=== PATIENT | female | born 1990 | race African-American/Black ===

== ENCOUNTER 2016-05-31 03:45 | Emergency (ER) | payer MEDICAID ==
[2016-05-31] MEDS ORDERED: BUPIVACAINE HCL 0.75% INJ/PF (7.5 MG/1 ML) 10 ML SDV INJ ONE (04:24)
[2016-05-31] MEDS ORDERED: PENICILLIN V POTASSIUM 500 MG TABLET PO ONE (04:24)
--- NOTE | 2016-05-31 04:26 | ER Document Report ---
HPI - HPI Patient complains to provider of: dental pain Pain Level: 3 Context: Patient is a 25-year-old female that comes emergency department for chief complaint of sharp dental pain, she states pain is in her lower jaw on the left side, states it is worsening for about 4 days but tonight became severe and she cannot sleep. Patient states that she has known fracture after she had an impacted wisdom tooth in that area. She states that she has been to the [facility] for work on the other side but not for this side. Patient denies any medical history otherwise, denies any daily medications or medical problems. - REPRODUCTIVE Reproductive: DENIES: : - DERM Skin Color: Normal Past Medical History - General Information source: Patient - Social History Smoking Status: Current Every Day Smoker Chew tobacco use (# tins/day): No Frequency of alcohol use: Occasional Drug Abuse: None Lives with: Family Family History: Reviewed & Not Pertinent Patient has suicidal ideation: No Patient has homicidal ideation: No - Past Medical History Cardiac Medical History: Reports: Hx Hypertension Denies: Hx Congestive Heart Failure, Hx Heart Attack Pulmonary Medical History: Denies: Hx Asthma, Hx Bronchitis, Hx COPD, Hx Pneumonia, Hx Tuberculosis Neurological Medical History: Denies: Hx Seizures Renal/ Medical History: Denies: Hx End Stage Renal Disease, Hx Kidney Stones, Hx Peritoneal Dialysis GI Medical History: Denies: Hx Cirrhosis, Hx Gastroesophageal Reflux Disease, Hx Ulcer Musculoskeltal Medical History: Denies Hx Arthritis, Denies Hx Multiple Sclerosis Psychiatric Medical History: Reports: Hx Anxiety, Hx Schizophrenia Denies: Hx Bipolar Disorder, Hx Depression Surgical Hx: Negative - Immunizations Immunizations up to date: No Hx Diphtheria, Pertussis, Tetanus Vaccination: Yes - 06/24/11 Vertical Provider Document - CONSTITUTIONAL General Appearance: WD/WN, Mild Distress - patient appears to be uncomfortable, holding the left side of her face - INFECTION CONTROL TRAVEL OUTSIDE OF THE [place].S. IN LAST 30 DAYS: No - HEENT HEENT: Atraumatic, Normocephalic Mouth Diagram: 1 - Dental caries, erythematous gumline, no noted drainable abscess, no other abnormalities noted - NECK Neck: Normal Inspection - RESPIRATORY Respiratory: Breath Sounds Normal, No Respiratory Distress O2 Sat by Pulse Oximetry: 95 - CARDIOVASCULAR Cardiovascular: Regular Rate, Regular Rhythm, Tachycardia - GI/ABDOMEN Gastrointestinal: Abdomen Soft, Abdomen Non-Tender - BACK Back: Normal Inspection - MUSCULOSKELETAL/EXTREMETIES Musculoskeletal/Extremeties: MAEW, FROM, Non-Tender - NEURO Level of Consciousness: Awake, Alert, Appropriate Motor/Sensory: No Motor Deficit, No Sensory Deficit - DERM Integumentary: Warm, Dry, No Rash Course - Re-evaluation Re-evalutation: Patient with dental caries in the location point out, erythematous gumline, obvious discomfort, discussed potential dental block and patient gladly accepted. After bupivacaine dental block patient smiling, happy, asymptomatic, very thankful. Patient given antibiotics, pain medication, dental clinic referral, patient has had 2 teeth which appear to have been taking care of already, states she will get this one taking care of as well. Discussed return precautions. Patient states understanding and agreement. - Vital Signs Vital signs: Temp Pulse Resp BP Pulse Ox 97.8 F 122 H 16 108/79 95 05/31/16 03:48 05/31/16 03:48 05/31/16 03:48 05/31/16 03:48 05/31/16 03:48 Procedures - Additional Procedures inferior alveolar dental block Additional Procedures: Other - Left inferior alveolar dental block performed with 0.75 bupivacaine, 25-gauge needle used, aspirated gently before injecting 3 mL at the shelf. About 1 minute before effective therapy achieved. Discharge - Discharge Clinical Impression: Tooth infection, Pain, dental Condition: Stable Disposition: HOME, SELF-CARE Additional Instructions: Examination is consistent with a dental infection, please take antibiotics as directed, take the pain medication if needed, follow-up with the dentist for repair/extraction to prevent recurrence. Return to the emergency department for any concerning or worsening symptoms. Prescriptions: Oxycodone HCl/Acetaminophen [Percocet 5-325 mg Tablet] 1 - 2 tab PO Q4H PRN #10 tablet PRN Reason: Penicillin V Potassium [Penicillin Vk 500 mg Tablet] 500 mg PO BID #20 tablet
[2016-05-31 18:31] VITALS: BP 106/76
== END 2016-05-31 05:00 | disposition home or self-care (01) ==
LOC: ER 03:45
PROC: 3E0T3BZ Introduction of Anesthetic Agent into Peripheral Nerves and Plexi, Percutaneous Approach (ICD-10-PCS; principal; 2016-05-31)
DX: K02.9 Dental caries, unspecified (principal); K08.89 Other specified disorders of teeth and supporting structures; F17.200 Nicotine dependence, unspecified, uncomplicated; I10 Essential (primary) hypertension
CPT/HCPCS: 99282; 64400; J3490 ×2

== ENCOUNTER 2016-07-09 17:30 | Emergency (ER) | payer MEDICAID ==
--- NOTE | 2016-07-09 18:12 | ER Document Report ---
ED Medical Screen (RME) - General Chief Complaint: Toothache Stated Complaint: TOOTH PAIN Notes: 25-year-old female comes emergency room complaining of pain to lower molars on both sides. The dental problems are a chronic problem. She has been seen here multiple times for toothaches. She states the pain started again last night and this morning woke up with swelling and severe pain. Strong EtOH odor. I have greeted and performed a rapid initial assessment of this patient. A comprehensive ED assessment and evaluation of the patient, analysis of test results and completion of the medical decision making process will be conducted by additional ED providers. TRAVEL OUTSIDE OF THE U.S. IN LAST 30 DAYS: No - Related Data Allergies/Adverse Reactions: acetaminophen [From Vicodin] Adverse Reaction (Intermediate, Verified 07/09/16 17:51) Hives hydrocodone bitartrate [From Vicodin] Adverse Reaction (Intermediate, Verified 07/09/16 17:51) Hives Past Medical History - Past Medical History Cardiac Medical History: Reports: Hx Hypertension Denies: Hx Congestive Heart Failure, Hx Heart Attack Pulmonary Medical History: Denies: Hx Asthma, Hx Bronchitis, Hx COPD, Hx Pneumonia, Hx Tuberculosis Neurological Medical History: Denies: Hx Seizures Renal/ Medical History: Denies: Hx End Stage Renal Disease, Hx Kidney Stones, Hx Peritoneal Dialysis GI Medical History: Denies: Hx Cirrhosis, Hx Gastroesophageal Reflux Disease, Hx Ulcer Musculoskeltal Medical History: Denies Hx Arthritis, Denies Hx Multiple Sclerosis Psychiatric Medical History: Reports: Hx Anxiety, Hx Schizophrenia Denies: Hx Bipolar Disorder, Hx Depression - Immunizations Immunizations up to date: No Hx Diphtheria, Pertussis, Tetanus Vaccination: Yes - 06/24/11 Physical Exam - Vital signs Vitals: Temp Pulse Resp BP Pulse Ox 99.5 F 116 H 18 133/82 H 99 07/09/16 17:48 07/09/16 17:48 07/09/16 17:48 07/09/16 17:48 07/09/16 17:48 Course - Vital Signs Vital signs: Temp Pulse Resp BP Pulse Ox 99.5 F 116 H 18 133/82 H 99 07/09/16 17:48 07/09/16 17:48 07/09/16 17:48 07/09/16 17:48 07/09/16 17:48
[2016-07-09] MEDS ORDERED: ONDANSETRON 4 MG TAB.RAPDIS PO ONE (18:14)
[2016-07-09] MEDS ORDERED: OXYCODONE-ACETAMINOPHEN 5-325 MG TABLET PO ONE (18:14)
[2016-07-09 18:43] LABS: ABSOLUTE LYMPHOCYTES (AUTO) 1.5 10^3/uL (0.5-4.7); ABSOLUTE MONOCYTES (AUTO) 1.2 10^3/uL (0.1-1.4); ABSOLUTE NEUT (AUTO) 9.9 10^3/uL (1.7-8.2); BASOPHILS % (AUTO) 0.3 % (0-2); EOSINOPHILS % (AUTO) 0.1 % (0-6); HEMATOCRIT 39.8 % (36.0-47.0); HEMOGLOBIN 12.8 g/dL (12.0-15.5); HGB HCT DIFFERENCE -1.4; LYMPHOCYTES % (AUTO) 12.2 % (13-45); MEAN CORPUSCULAR HEMOGLOBIN 24.9 pg (27.0-33.4); MEAN CORPUSCULAR HGB CONC 32.1 g/dL (32.0-36.0); MEAN CORPUSCULAR VOLUME 78 fl (80-97); MONOCYTES % (AUTO) 9.7 % (3-13); RED BLOOD COUNT 5.13 10^6/uL (3.72-5.28); RED CELL DISTRIBUTION WIDTH 18.7 % (11.5-14.0); SEGMENTED NEUTROPHILS % (AUTO) 77.7 % (42-78); WHITE BLOOD COUNT 12.7 10^3/uL (4.0-10.5)
[2016-07-09 19:00] LABS: ALANINE AMINOTRANSFERASE 29 U/L (9-52); ALBUMIN 4.4 g/dL (3.5-5.0); ALCOHOL 156 mg/dL (NONE DETECTED); ALKALINE PHOSPHATASE 88 U/L (38-126); ANION GAP 16 (5-19); ASPARTATE AMINO TRANSFERASE 23 U/L (14-36); BILIRUBIN,DIRECT 0.1 mg/dL (0.0-0.4); BILIRUBIN,TOTAL 0.6 mg/dL (0.2-1.3); BLOOD UREA NITROGEN 7 mg/dL (7-20); CALCIUM 9.4 mg/dL (8.4-10.2); CARBON DIOXIDE 26 mmol/L (22-30); CHLORIDE 102 mmol/L (98-107); GLUCOSE 76 mg/dL (75-110); SODIUM 143.5 mmol/L (137-145); TOTAL PROTEIN 7.8 g/dL (6.3-8.2)
[2016-07-09] MEDS ORDERED: CLINDAMYCIN 600 MG/D5W RTU 50 ML IV ONE (20:40)
[2016-07-09] MEDS ORDERED: MORPHINE SULFATE 10 MG/ML INJ IV ONE (22:25)
--- NOTE | 2016-07-09 22:29 | ER Document Report ---
ED Oral Problem - General Chief Complaint: Toothache Stated Complaint: TOOTH PAIN Notes: The patient is a 25-year-old female, past medical history frequent toothaches, bipolar, presents with 3 days of swelling of her bottom teeth and neck. She is scheduled to have multiple teeth removed in 2 weeks. She is requesting pain medicine and antibiotics. She denies difficulty swallowing, trismus, nausea, vomiting, headache, fevers, tongue swelling, shortness of breath or stridor. TRAVEL OUTSIDE OF THE [place]. IN LAST 30 DAYS: No - Related Data Allergies/Adverse Reactions: acetaminophen [From Vicodin] Adverse Reaction (Intermediate, Verified 07/09/16 17:51) Hives hydrocodone bitartrate [From Vicodin] Adverse Reaction (Intermediate, Verified 07/09/16 17:51) Hives Past Medical History - General Information source: Patient - Social History Smoking Status: Current Every Day Smoker Chew tobacco use (# tins/day): No Frequency of alcohol use: Social Drug Abuse: None Family History: Reviewed & Not Pertinent Patient has suicidal ideation: No Patient has homicidal ideation: No - Past Medical History Cardiac Medical History: Reports: Hx Hypertension Denies: Hx Congestive Heart Failure, Hx Heart Attack Pulmonary Medical History: Denies: Hx Asthma, Hx Bronchitis, Hx COPD, Hx Pneumonia, Hx Tuberculosis Neurological Medical History: Denies: Hx Seizures Renal/ Medical History: Denies: Hx End Stage Renal Disease, Hx Kidney Stones, Hx Peritoneal Dialysis GI Medical History: Denies: Hx Cirrhosis, Hx Gastroesophageal Reflux Disease, Hx Ulcer Musculoskeltal Medical History: Denies Hx Arthritis, Denies Hx Multiple Sclerosis Psychiatric Medical History: Reports: Hx Anxiety, Hx Schizophrenia Denies: Hx Bipolar Disorder, Hx Depression Surgical Hx: Negative - Immunizations Immunizations up to date: No Hx Diphtheria, Pertussis, Tetanus Vaccination: Yes - 06/24/11 Review of Systems - Review of Systems Notes: REVIEW OF SYSTEMS: CONSTITUTIONAL: -fevers, -chills EENT: -eye pain, -difficulty swallowing, -nasal congestion, +neck swelling, + dental pain CARDIOVASCULAR:-chest pain, -syncope. RESPIRATORY: -cough, -SOB GASTROINTESTINAL: -abdominal pain, - nausea, -vomiting, -diarrhea GENITOURINARY: -dysuria, -hematuria MUSCULOSKELETAL: -back pain, -neck pain SKIN: -rash or skin lesions. HEMATOLOGIC: -easy bruising or bleeding. LYMPHATIC: -swollen, enlarged glands. NEUROLOGICAL: -altered mental status or loss of consciousness, -headache, - neurologic symptoms PSYCHIATRIC: -anxiety, -depression. ALL OTHER SYSTEMS REVIEWED AND NEGATIVE. Physical Exam - Vital signs Vitals: Temp Pulse Resp BP Pulse Ox 99.5 F 116 H 18 133/82 H 99 07/09/16 17:48 07/09/16 17:48 07/09/16 17:48 07/09/16 17:48 07/09/16 17:48 - Notes Notes: PHYSICAL EXAMINATION: GENERAL: Agitated, smells of EtOH, no respiratory distress HEAD: Atraumatic, normocephalic. EYES: Pupils equal round and reactive to light, extraocular movements intact, sclera anicteric, conjunctiva are normal. ENT: Brawny neck, no tongue elevation, poor dentition, no trismus, nares patent , oropharynx clear without exudates. Moist mucous membranes. NECK: Normal range of motion, supple without lymphadenopathy LUNGS: Breath sounds clear to auscultation bilaterally and equal. No wheezes rales or rhonchi. HEART: Regular rate and rhythm without murmurs ABDOMEN: Soft, nontender, normoactive bowel sounds. No guarding, no rebound. No masses appreciated. EXTREMITIES: Normal range of motion, no pitting or edema. No cyanosis. NEUROLOGICAL: Cranial nerves grossly intact. Normal speech, normal gait. Normal sensory, motor, and reflex exams. PSYCH: Agitated SKIN: Warm, Dry, normal turgor, no rashes or lesions noted. Course - Re-evaluation Re-evalutation: Concern for Rafael angina with brawny neck and dental pain. Patient also intoxicated and initially refusing IV. After talking to her multiple times, patient sent to the IV for CT, antibiotics and pain medicine. She is protecting her airway and has no difficulty swallowing. 07/09/16 23:08 Pt does not have evidence of Rafael's angina on CT scan. She does have a dental abscess. Will treat with clindamycin and follow-up at dentist. She has an appointment on July 24, but provided other dentists in the area for her to try calling tomorrow to see if there is an earlier appointment. Patient comfortable with plan and she understands. - Vital Signs Vital signs: Temp Pulse Resp BP Pulse Ox 99.5 F 116 H 18 133/82 H 99 07/09/16 17:48 07/09/16 17:48 07/09/16 17:48 07/09/16 17:48 07/09/16 17:48 - Laboratory Result Diagrams: 07/09/16 18:27 07/09/16 18:27 Laboratory results interpreted by me: 07/09/16 18:27 WBC 12.7 H MCV 78 L MCH 24.9 L RDW 18.7 H Lymphocytes % 12.2 L Absolute Neutrophils 9.9 H - Diagnostic Test Radiology reviewed: Image reviewed, Reports reviewed Radiology results interpreted by me: CT Face: IMPRESSION: 1.5 x 1.5 by 1.0 cm abscess in the medial soft tissues of the right mandible adjacent to the 2nd posterior molar which shows osseous abscess at the posterior root with some cortical breakthrough of the medial table of the mandible into the soft tissues. Discharge - Discharge Clinical Impression: Dental abscess Condition: Stable Disposition: HOME, SELF-CARE Additional Instructions: TOOTHACHE: Your pain is due to dental decay. The tooth must be repaired in order for you to feel better. You will, therefore, be referred to a dentist. We do not have dentists on the staff at [facility]. Severe swelling or drainage around a tooth usually means a dental abscess. This also requires evaluation and treatment by the dentist, but antibiotics may be prescribed while awaiting dental treatment. You should be rechecked immediately if you develop major swelling of the face, increasing pain, a lump in the jaw or gums, headache, difficulty swallowing, or fever. ORAL NARCOTIC MEDICATION: You have been given a prescription for pain control. This medication is a narcotic. It's best taken with food, as nausea can result if taken on an empty stomach. Don't operate machinery or drive within six hours of taking this medication. Do not combine this medicine with alcohol, or with any medication which can cause sedation (such as cold tablets or sleeping pills) unless you get permission from the physician. Narcotics tend to cause constipation. If possible, drink plenty of fluids and eat a diet high in fiber and fruits. Please be aware that prescription narcotics also have the potential for abuse. People become addicted to these medications because of the general sense of wellbeing that they induce. This feeling along with a significant reduction in tension, anxiety, and aggression provides a stimulating seductive quality to these drugs. Once your pain is under control, we encourage you to discard your unused narcotics. CLINDAMYCIN: You have been given a prescription for the antibiotic clindamycin. It is often prescribed for infections in the mouth, such as dental infections or abscesses, and for skin infections due to MRSA. It's important that you take all the medication, unless instructed otherwise by your physician. Failure to complete the entire course can result in relapse of your condition. Common side effects of antibiotics include nausea, intestinal cramping, or diarrhea. Women may develop vaginal yeast infections, and babies can get yeast (thrush) in the mouth following the use of antibiotics. Contact your physician if you develop significant side effects from this medication. Allergy to this antibiotic can result in hives, wheezing, faintness, or itching. If symptoms of allergy occur, stop the medication and call the doctor. FOLLOW-UP CARE: You have been referred for follow-up care to the dentists listed below. Call the dentists office for an appointment as you were instructed or within the next two days. If you experience worsening or a significant change in your symptoms, notify the physician immediately or return to the Emergency Department at any time for re-evaluation. [facility] [address] [place], [place] Saturday mornings, by appointment [facility] [address] [place] [address] [facility] [address] [facility] [address] [facility] [address] [facility] [address] [email or web address] [address] [place] [address] Saturday- 8:00am to 5:00 pm Will see patients from other [facility]. Charges based on income and family size and accepts Medicare, Medicaid, and Insurances Will pull molars [facility] [address] Hours of Operation 8:00 am - 4:30 pm weekdays The following dental offices accept Medicaid: [facility] Dr. Cooper Dr. Zuniga Dr. Mckinley Dr. Benson Stas Ledezma, [place], and [place] oral surgery Dr. Rosenthal ([place]) Dr. Lozano ([place]) [facility] Drs. Altman ([place]) Dr. Polanco ([place]) [facility] Dr. Castro ([place]) Drs. Bajwa and ([place]) Medicaid Care Line Prescriptions: Acetaminophen with Codeine [Tylenol #3 Tablet] 1 each PO Q4HP PRN #10 tablet PRN Reason: Clindamycin HCl 300 mg PO Q8H 21 Days Referrals: INA NATH MD [Primary Care Provider] - Follow up as needed
[2016-07-09 23:18] VITALS: BP 127/69
== END 2016-07-09 23:26 | disposition home or self-care (01) ==
LOC: ER 17:30
DX: K04.7 Periapical abscess without sinus (principal); F17.200 Nicotine dependence, unspecified, uncomplicated; I10 Essential (primary) hypertension; Z88.6 Allergy status to analgesic agent
CPT/HCPCS: 99284; 96375; 96365; 36415; 87040; 80307; 84703; 85025; 87077; 80053; 70487; S0077; S0119; J2270

== ENCOUNTER 2016-08-02 16:16 | Emergency (ER) | payer MEDICAID ==
[2016-08-02] MEDS ORDERED: DIPHENHYDRAMINE HCL 25 MG CAPSULE PO ONE (16:56)
[2016-08-02] MEDS ORDERED: FAMOTIDINE 20 MG TABLET PO ONE (16:56)
[2016-08-02] MEDS ORDERED: PROMETHAZINE HCL 25 MG TABLET PO ONE (16:56)
--- NOTE | 2016-08-02 16:59 | ER Document Report ---
ED Medical Screen (RME) - General Chief Complaint: Drug Abuse Stated Complaint: WITHDRAWAL Time Seen by Provider: 08/02/16 16:56 Mode of Arrival: Ambulatory Information source: Patient Notes: Patient presents emergency department with complaints of possible allergic reaction to Suboxone. Patient reports she decided to wean herself off adderall. Her friend gave her Suboxone at around noon today. Since that time she's felt faint week heart racing nauseated vomited. No shortness of breath no trouble talking or breathing. TRAVEL OUTSIDE OF THE U.S. IN LAST 30 DAYS: No - Related Data Allergies/Adverse Reactions: acetaminophen [From Vicodin] Adverse Reaction (Intermediate, Verified 08/02/16 16:54) Hives hydrocodone bitartrate [From Vicodin] Adverse Reaction (Intermediate, Verified 08/02/16 16:54) Hives Past Medical History - Past Medical History Cardiac Medical History: Reports: Hx Hypertension Denies: Hx Congestive Heart Failure, Hx Heart Attack Pulmonary Medical History: Denies: Hx Asthma, Hx Bronchitis, Hx COPD, Hx Pneumonia, Hx Tuberculosis Neurological Medical History: Denies: Hx Seizures Renal/ Medical History: Denies: Hx End Stage Renal Disease, Hx Kidney Stones, Hx Peritoneal Dialysis GI Medical History: Denies: Hx Cirrhosis, Hx Gastroesophageal Reflux Disease, Hx Ulcer Musculoskeltal Medical History: Denies Hx Arthritis, Denies Hx Multiple Sclerosis Psychiatric Medical History: Reports: Hx Anxiety, Hx Schizophrenia Denies: Hx Bipolar Disorder, Hx Depression - Immunizations Immunizations up to date: No Hx Diphtheria, Pertussis, Tetanus Vaccination: Yes - 06/24/11
--- NOTE | 2016-08-03 12:03 | EKG REPORT ---
SEVERITY:- NORMAL ECG - SINUS RHYTHM : Confirmed by: Екатерина Senior 03-Aug-2016 12:02:39
== END 2016-08-02 20:50 | disposition left against medical advice (07) ==
LOC: ER 16:16
DX: Z53.9 Procedure and treatment not carried out, unspecified reason (principal); F19.939 Other psychoactive substance use, unspecified with withdrawal, unspecified; R11.2 Nausea with vomiting, unspecified; R53.1 Weakness
CPT/HCPCS: 93005; 99281; 93010; J3490 ×3

== ENCOUNTER 2017-03-16 03:31 | Emergency (ER) | payer MEDICAID ==
[2017-03-16] MEDS ORDERED: IBUPROFEN 600 MG TABLET PO ONE (03:52)
--- NOTE | 2017-03-16 03:54 | ER Document Report ---
HPI - HPI Patient complains to provider of: left knee pain Pain Level: 3 Context: Patient is a 26-year-old female comes emergency department for chief complaint of left knee pain. She states she hit her knee on the corner of a table last night, she had immediate pain, she went to bed and slept, she woke up this morning and hurt, she states it keeps hurting worse and now she feels like she cannot bend it. She denies any other injuries. LMP within the past month, denies any daily medications or medical problems. - REPRODUCTIVE Reproductive: DENIES: : - MUSCULOSKELETAL Musculoskeletal: REPORTS: Extremity pain Past Medical History - General Information source: Patient - Social History Smoking Status: Never Smoker Frequency of alcohol use: Occasional Drug Abuse: None Lives with: Spouse/Significant other Family History: Reviewed & Not Pertinent Patient has suicidal ideation: No Patient has homicidal ideation: No - Past Medical History Cardiac Medical History: Reports: Hx Hypertension Denies: Hx Congestive Heart Failure, Hx Heart Attack Pulmonary Medical History: Denies: Hx Asthma, Hx Bronchitis, Hx COPD, Hx Pneumonia, Hx Tuberculosis Neurological Medical History: Denies: Hx Seizures Renal/ Medical History: Denies: Hx End Stage Renal Disease, Hx Kidney Stones, Hx Peritoneal Dialysis GI Medical History: Denies: Hx Cirrhosis, Hx Gastroesophageal Reflux Disease, Hx Ulcer Musculoskeltal Medical History: Denies Hx Arthritis, Denies Hx Multiple Sclerosis Psychiatric Medical History: Reports: Hx Anxiety, Hx Schizophrenia Denies: Hx Bipolar Disorder, Hx Depression Surgical Hx: Negative - Immunizations Immunizations up to date: No Hx Diphtheria, Pertussis, Tetanus Vaccination: Yes - 06/24/11 Vertical Provider Document - CONSTITUTIONAL General Appearance: WD/WN, No Apparent Distress - INFECTION CONTROL TRAVEL OUTSIDE OF THE [place] IN LAST 30 DAYS: No - HEENT HEENT: Atraumatic, Normocephalic - RESPIRATORY Respiratory: Breath Sounds Normal, No Respiratory Distress O2 Sat by Pulse Oximetry: 100 - CARDIOVASCULAR Cardiovascular: Regular Rate, Regular Rhythm - MUSCULOSKELETAL/EXTREMETIES Musculoskeletal/Extremeties: Tender - Tenderness over the left medial aspect of the knee generally, mainly superiorly, no swelling, range of motion intact, no obvious effusion, no erythema or abnormal heat, normal hip, ankle, distal neurovascular exam. Course - Re-evaluation Re-evalutation: No effusion or obvious abnormality on x-ray. Suspect just contusion. No evidence of compartment syndrome on examination or suggested by location. Patient given crutches, she declines anti-inflammatory medication, she states she will be at home icing and elevating her knee until it improves and resolves. Discussed follow-up and return precautions. Patient states understanding and agreement. - Vital Signs Vital signs: Temp Pulse Resp BP Pulse Ox 98.2 F 103 H 20 110/75 100 03/16/17 03:33 03/16/17 03:33 03/16/17 03:33 03/16/17 03:33 03/16/17 03:33 - Diagnostic Test Radiology reviewed: Image reviewed, Reports reviewed Discharge - Discharge Clinical Impression: Left knee injury Qualifiers: Encounter type: initial encounter Qualified Code(s): S89.92XA - Unspecified injury of left lower leg, initial encounter Condition: Stable Disposition: HOME, SELF-CARE Additional Instructions: X-ray does not show any concerning findings. Examination is consistent with soft tissue injury of the knee. Elevate your knee, apply ice to the area (3-4 times a day for 10-15 minutes), take [id number] anti-inflammatory, and rest of the leg. This should resolve with time. Follow-up with primary care. Return for any concerning symptoms including severe swelling, redness, or any other concerning symptoms. Forms: Return to Work, Treatment of Relative/Child
--- NOTE | 2017-03-16 04:41 | RADIOLOGY REPORT (SQ) ---
EXAM DESCRIPTION: KNEE LEFT 4 VIEW CLINICAL HISTORY: 26 years, Female, injury, pain COMPARISON: None. NUMBER OF VIEWS: 4 LIMITATIONS: None. FINDINGS: Bones, joints, and soft tissues appear intact. 0.9 cm ossicle at the distal patellar tendon. No effusion. IMPRESSION: No acute findings. 2011 [employer]- All Rights Reserved
[2017-03-16 05:14] VITALS: BP 117/82
== END 2017-03-16 05:14 | disposition home or self-care (01) ==
LOC: ER 03:31
DX: S89.92XA Unspecified injury of left lower leg, initial encounter (principal); M25.562 Pain in left knee; W22.03XA Walked into furniture, initial encounter; I10 Essential (primary) hypertension
CPT/HCPCS: 99283; 73562; J3490

== ENCOUNTER 2017-03-25 22:21 | Emergency (ER) | payer SELFPAY ==
[2017-03-25 22:40] VITALS: BP 123/80
== END 2017-03-25 23:40 | disposition left against medical advice (07) ==
LOC: ER 22:21
DX: Z53.21 Procedure and treatment not carried out due to patient leaving prior to being seen by health care provider (principal)

== ENCOUNTER 2017-07-26 21:24 | Emergency (ER) | payer MEDICAID ==
[2017-07-26 22:25] LABS: HEMATOCRIT 32.3 % (36.0-47.0); HEMOGLOBIN 10.4 g/dL (12.0-15.5); MEAN CORPUSCULAR HEMOGLOBIN 23.3 pg (27.0-33.4); MEAN CORPUSCULAR HGB CONC 32.3 g/dL (32.0-36.0); MEAN CORPUSCULAR VOLUME 72 fl (80-97); PLATELET COUNT 339 10^3/uL (150-450); RED BLOOD COUNT 4.47 10^6/uL (3.72-5.28); RED CELL DISTRIBUTION WIDTH 19.7 % (11.5-14.0); WHITE BLOOD COUNT 6.1 10^3/uL (4.0-10.5)
--- NOTE | 2017-07-26 23:06 | RADIOLOGY REPORT (SQ) ---
EXAM DESCRIPTION: U/S OB TRANSVAGINAL W/O DOP COMPLETED DATE/TIME: 07/26/2017 10:51 pm REASON FOR STUDY: preg bleeding COMPARISON: None. TECHNIQUE: Dynamic and static grayscale images acquired of the pelvis via transvaginal approach and recorded on PACS. Additional selected color Doppler and spectral images recorded. LIMITATIONS: None. FINDINGS: UTERUS: Contour normal. No mass. ENDOMETRIAL STRIPE: No focal or generalized thickening. No masses. CERVIX: No nabothian cysts. RIGHT ADNEXUM: No abnormal masses. Ovary not visualized. LEFT ADNEXUM: No abnormal masses. Ovary not visualized. FREE FLUID: None noted. OTHER: No other significant finding. MEASUREMENTS: UTERUS: 9 x 6 x 5 cm ENDOMETRIAL STRIPE: 5 mm RIGHT OVARY: Not visualized. LEFT OVARY: Not visualized. IMPRESSION: Ovaries not visualized. No adnexal masses or free fluid. No IUP identified. TECHNICAL DOCUMENTATION: JOB ID: [id number] [place]-72 2010 [employer]- All Rights Reserved Reading location - IP/workstation name: [email or web address]
--- NOTE | 2017-07-26 23:45 | ER Document Report ---
ED General - General Chief Complaint: Vag Bleeding, +preg <12wks Stated Complaint: VAGINAL BLEEDING Time Seen by Provider: 07/26/17 21:44 Notes: Patient is a 26 year old female with a prior medical history of 1 ectopic in the past, 3 healthy vaginal deliveries, who presents with vaginal bleeding and lower abdominal cramping. Patient reports that she has been following with a doctor as an outpatient and has been told that her quantitative beta-hCG levels have been "inconclusive" but does report that the levels reached as high as 1800. She reports that her last menstrual period was approximately 2 months ago. She is concerned because she states with her most recent child she drank through almost the entirety of the as she was apparently unaware that she was until 7 months of . She states that she did not want this to happen again prompting her to come to the emergency department when she began to have vaginal bleeding. Nothing seems to improve or worsen her symptoms. She denies bleeding through more than 2 pads per hour any time. She states that overall her abdominal pain has resolved although she does continue to note a mild, cramping, lower abdominal discomfort. She denies any fever or constitutional symptoms. TRAVEL OUTSIDE OF THE [place] IN LAST 30 DAYS: No - Related Data Allergies/Adverse Reactions: acetaminophen [From Vicodin] Adverse Reaction (Intermediate, Verified 08/02/16 16:54) Hives hydrocodone bitartrate [From Vicodin] Adverse Reaction (Intermediate, Verified 08/02/16 16:54) Hives Past Medical History - General Information source: Patient Last Menstrual Period: may 29 - Social History Smoking Status: Current Every Day Smoker Chew tobacco use (# tins/day): No Frequency of alcohol use: Social Drug Abuse: None Lives with: Spouse/Significant other Family History: Reviewed & Not Pertinent Patient has suicidal ideation: No Patient has homicidal ideation: No - Past Medical History Cardiac Medical History: Reports: Hx Hypertension - not medicated Denies: Hx Congestive Heart Failure, Hx Heart Attack Pulmonary Medical History: Denies: Hx Asthma, Hx Bronchitis, Hx COPD, Hx Pneumonia, Hx Tuberculosis Neurological Medical History: Denies: Hx Seizures Renal/ Medical History: Denies: Hx End Stage Renal Disease, Hx Kidney Stones, Hx Peritoneal Dialysis GI Medical History: Denies: Hx Cirrhosis, Hx Gastroesophageal Reflux Disease, Hx Ulcer Musculoskeltal Medical History: Denies Hx Arthritis, Denies Hx Multiple Sclerosis Psychiatric Medical History: Reports: Hx Anxiety, Hx Schizophrenia - pt denied at this visit Denies: Hx Bipolar Disorder, Hx Depression - Immunizations Immunizations up to date: No Hx Diphtheria, Pertussis, Tetanus Vaccination: Yes - 06/24/11 Review of Systems - Review of Systems Notes: Constitutional: Negative for fever. HENT: Negative for sore throat. Eyes: Negative for visual changes. Cardiovascular: Negative for chest pain. Respiratory: Negative for shortness of breath. Gastrointestinal: Positive for abdominal cramping Genitourinary: Positive for vaginal bleeding Musculoskeletal: Negative for back pain. Skin: Negative for rash. Neurological: Negative for headaches, weakness or numbness. 10 point ROS negative except as marked above and in HPI. Physical Exam - Vital signs Vitals: Temp Pulse Resp BP Pulse Ox 99.0 F 114 H 18 149/92 H 97 07/26/17 21:29 07/26/17 21:29 07/26/17 21:29 07/26/17 21:29 07/26/17 21:29 Interpretation: Tachycardic Notes: PHYSICAL EXAMINATION: GENERAL: Well-appearing, well-nourished and in no acute distress. HEAD: Atraumatic, normocephalic. EYES: Pupils equal round and reactive to light, extraocular movements intact, sclera anicteric, conjunctiva are normal. ENT: nares patent, oropharynx clear without exudates. Moist mucous membranes. NECK: Normal range of motion, supple without lymphadenopathy LUNGS: Breath sounds clear to auscultation bilaterally and equal. No wheezes rales or rhonchi. HEART: Regular rate and rhythm without murmurs ABDOMEN: Soft, nontender, normoactive bowel sounds. No guarding, no rebound. No masses appreciated. EXTREMITIES: Normal range of motion, no pitting or edema. No cyanosis. NEUROLOGICAL: No focal neurological deficits. Moves all extremities spontaneously and on command. PSYCH: Normal mood, normal affect. SKIN: Warm, Dry, normal turgor, no rashes or lesions noted. Course - Re-evaluation Re-evalutation: 07/26/17 23:43 Patient presents with vaginal bleeding and concerned that she is as apparently as an outpatient she had had elevated quantitative beta-hCG levels up to 1800. She told that she has been given information that her tests were "inconclusive" in regards to the trend of her quantitative hCG. However at time of my assessment the patient has no focal abdominal pain, her transvaginal ultrasound is unremarkable, and her hCG level is negative. I suspect that the patient is having a menstrual period. The results of her tests and ultrasound have been reviewed with the patient at length and she and her at the bedside are understanding of these results. I do not suspect an acute cystitis , ectopic , hemodynamically compromised and vaginal bleeding, or any other life-threatening condition at this time. At this time will discharge with return precautions and follow-up recommendations. Verbal discharge instructions given a the bedside and opportunity for questions given. Medication warnings reviewed. Patient is in agreement with this plan and has verbalized understanding of return precautions and the need for primary care follow-up in the next 24-72 hours. - Vital Signs Vital signs: Temp Pulse Resp BP Pulse Ox 99.0 F 95 18 123/79 99 07/26/17 21:29 07/26/17 23:56 07/26/17 23:56 07/26/17 23:56 07/26/17 23:56 - Laboratory Result Diagrams: 07/26/17 22:20 Laboratory results interpreted by me: 07/26/17 22:20 Hgb 10.4 L Hct 32.3 L MCV 72 L MCH 23.3 L RDW 19.7 H - Diagnostic Test Radiology reviewed: Reports reviewed Discharge - Discharge Clinical Impression: Vaginal bleeding, Abdominal cramping Condition: Good Disposition: HOME, SELF-CARE Additional Instructions: You are not . Your hormone level is 0. Your ultrasound is normal. Please return if you develop any symptoms that are worrisome to you including persistent vomiting, worsening pain, or any other symptoms that are concerning to you. Forms: Parent Work Note Referrals: ROZINA PRESCOTT MD [Primary Care Provider] - Follow up as needed
[2017-07-26 23:57] VITALS: BP 123/79
== END 2017-07-27 00:10 | disposition home or self-care (01) ==
LOC: ER 21:24
DX: N93.9 Abnormal uterine and vaginal bleeding, unspecified (principal); R10.30 Lower abdominal pain, unspecified; F17.200 Nicotine dependence, unspecified, uncomplicated; I10 Essential (primary) hypertension
CPT/HCPCS: 36415; 76817; 84702; 85027; 99284

== ENCOUNTER 2018-03-17 21:47 | Emergency (ER) | payer MEDICAID ==
--- NOTE | 2018-03-17 22:27 | RADIOLOGY REPORT (SQ) ---
EXAM DESCRIPTION: XR ANKLE 3 OR MORE VIEWS COMPLETED DATE/TME: 03/17/2018 00:00 CLINICAL HISTORY: 27 years, Female, rolled ankle over/severe pain COMPARISON: None. NUMBER OF VIEWS: 3 TECHNIQUE: 3 view left ankle LIMITATIONS: None. FINDINGS: Soft tissue swelling throughout the ankle with a mildly displaced medial malleolus for fracture, with a comminuted component. There is also a comminuted component to a lateral malleolus fracture. No dislocation. No significant widening of the ankle mortise. IMPRESSION: Comminuted fracture deformities of the medial and lateral malleoli with associated soft tissue swelling. copyright 2010 [employer]- All Rights Reserved
[2018-03-17] MEDS ORDERED: KETOROLAC TROMETHAMINE 60 MG/2 ML SDV IM ONE (22:44)
[2018-03-17] MEDS ORDERED: OXYCODONE-ACETAMINOPHEN 5-325 MG TABLET PO ONE (22:48)
--- NOTE | 2018-03-17 23:05 | ER Document Report ---
HPI - HPI Time Seen by Provider: 03/17/18 22:16 Pain Level: 5 Notes: Patient is an otherwise healthy 27-year-old female who presents with chief complaint of left ankle pain. Patient reports she was cooking dinner when she tripped over her dog and heard a pop. Patient reports she has an extra ligament in her left lower extremity. - REPRODUCTIVE Reproductive: DENIES: : - MUSCULOSKELETAL Musculoskeletal: REPORTS: Extremity pain - rt ankle Past Medical History - General Information source: Patient - Social History Smoking Status: Current Some Day Smoker Chew tobacco use (# tins/day): No Frequency of alcohol use: None Drug Abuse: None Family History: Reviewed & Not Pertinent Patient has suicidal ideation: No Patient has homicidal ideation: No - Past Medical History Cardiac Medical History: Reports: Hx Hypertension - not medicated Denies: Hx Congestive Heart Failure, Hx Heart Attack Pulmonary Medical History: Denies: Hx Asthma, Hx Bronchitis, Hx COPD, Hx Pneumonia, Hx Tuberculosis Neurological Medical History: Denies: Hx Seizures Renal/ Medical History: Denies: Hx End Stage Renal Disease, Hx Kidney Stones, Hx Peritoneal Dialysis GI Medical History: Denies: Hx Cirrhosis, Hx Gastroesophageal Reflux Disease, Hx Ulcer Musculoskeletal Medical History: Denies Hx Arthritis, Denies Hx Multiple Sclerosis Psychiatric Medical History: Reports: Hx Anxiety, Hx Schizophrenia - pt denied at this visit Denies: Hx Bipolar Disorder, Hx Depression - Immunizations Immunizations up to date: No Hx Diphtheria, Pertussis, Tetanus Vaccination: Yes - 06/24/11 Vertical Provider Document - CONSTITUTIONAL Notes: PHYSICAL EXAMINATION: GENERAL: Well-appearing, well-nourished and in no acute distress. HEAD: Atraumatic, normocephalic. EYES: Pupils equal round extraocular movements intact, conjunctiva are normal. ENT: Nares patent NECK: Normal range of motion LUNGS: No respiratory distress Musculoskeletal: Normal range of motion, swelling without erythema noted to lateral left ankle. Cap refill less than 3 seconds, normal motor and sensation distal to injury. NEUROLOGICAL: Normal speech. PSYCH: Anxious. SKIN: Warm, Dry, normal turgor, no rashes or lesions noted. - INFECTION CONTROL TRAVEL OUTSIDE OF THE [place] IN LAST 30 DAYS: No Course - Re-evaluation Re-evalutation: 03/17/18 23:01 X-ray reveals soft tissue swelling throughout the ankle with a mildly displaced medial malleolus and lateral malleolus fracture. Patient will be placed in a short leg posterior splint, given crutches and discharged home. Patient instructed to take ibuprofen, use Percocet as needed for severe pain only. Follow-up with orthopedics. Discharge - Discharge Clinical Impression: Bimalleolar fracture of left ankle Qualifiers: Encounter type: initial encounter Fracture type: closed Qualified Code(s): S82.842A - Displaced bimalleolar fracture of left lower leg, initial encounter for closed fracture Condition: Stable Disposition: HOME, SELF-CARE Additional Instructions: Fractured Ankle (Bimalleolar) You have a fracture of both bones of the lower leg at the ankle. If there is dispacement of the bones from their proper alignment, manipulation of the ankle and foot may be necessary to re-align the bones properly. This fracture wll require a cast for healing and some of the more serious fractures of this type will require surgery. If surgery is not required, the bones requires only protection and sufficient time for healing. The initial treatment is immobiliza tion, elevation, and ice packs. Depending on the type of fracture, immobilization may consist of a splint or cast. The length of time required for healing depends on the type of fracture. You will be referred to an orthopedic surgeon who will re-assess you periodically to make certain that the bone heals without complications. It's important that you follow the instructions given you. Please keep the splint in place until cleared by orthopedics. Take ibuprofen 600 mg every 6 hours. Use the Percocet for severe pain only. Call orthopedics on Saturday to schedule an appointment. Let them know you are seen in the emergency department and need follow-up for a fracture in your ankle. Prescriptions: Oxycodone HCl/Acetaminophen [Percocet 5-325 mg Tablet] 1 - 2 tab PO Q4H PRN #10 tablet PRN Reason: Referrals: ROZINA PRESCOTT MD [Primary Care Provider] - Follow up as needed NIEVES MARTINEZ MD [ACTIVE STAFF] - Follow up as needed
[2018-03-18 00:46] VITALS: BP 138/81
== END 2018-03-18 00:06 | disposition home or self-care (01) ==
LOC: ER 21:47
DX: S82.842A Displaced bimalleolar fracture of left lower leg, initial encounter for closed fracture (principal); W01.0XXA Fall on same level from slipping, tripping and stumbling without subsequent striking against object, initial encounter; Y93.G3 Activity, cooking and baking; F17.200 Nicotine dependence, unspecified, uncomplicated; I10 Essential (primary) hypertension
CPT/HCPCS: 99283; 96372; 73610; 29515; J1885

== ENCOUNTER 2018-03-26 08:04 | Day surgery (SDC) | payer MEDICAID ==
[~2018-03-26 08:04] MED LIST: CEFAZOLIN SODIUM 2 GM in DEXTROSE 5%-WATER 100 ML IV PRN
[2018-03-26 08:30] LABS: HEMATOCRIT 31.8 % (36.0-47.0); HEMOGLOBIN 10.3 g/dL (12.0-15.5); MEAN CORPUSCULAR HEMOGLOBIN 22.6 pg (27.0-33.4); MEAN CORPUSCULAR HGB CONC 32.4 g/dL (32.0-36.0); MEAN CORPUSCULAR VOLUME 70 fl (80-97); PLATELET COUNT 309 10^3/uL (150-450); RED BLOOD COUNT 4.55 10^6/uL (3.72-5.28); RED CELL DISTRIBUTION WIDTH 23.1 % (11.5-14.0); WHITE BLOOD COUNT 6.6 10^3/uL (4.0-10.5)
[2018-03-26 08:53] LABS: ANION GAP 5 (5-19); BLOOD UREA NITROGEN 16 mg/dL (7-20); CALCIUM 9.8 mg/dL (8.4-10.2); CARBON DIOXIDE 28 mmol/L (22-30); CHLORIDE 105 mmol/L (98-107); GLUCOSE 104 mg/dL (75-110); SODIUM 138.3 mmol/L (137-145)
[2018-03-26 08:55] LABS: POTASSIUM 4.1 mmol/L (3.6-5.0)
[2018-03-26] MEDS ORDERED: PROPOFOL INJ 200 MG/20 ML VIAL IV ONE (08:56)
[2018-03-26] MEDS ORDERED: FENTANYL CITRATE INJ/PF 100 MCG/2 ML AMPUL ONE (08:56)
[2018-03-26] MEDS ORDERED: ACETAMINOPHEN 1,000 MG/100 ML RTUPB IV ONE ×2 (08:56→10:43)
[2018-03-26] MEDS ORDERED: MIDAZOLAM 2 MG/2 ML INJ ONE (08:56)
[2018-03-26] MEDS ORDERED: BUPIVACAINE HCL 0.5 % INJ/PF 30 ML SDV ONE (09:28)
[2018-03-26] MEDS ORDERED: OXYCODONE-ACETAMINOPHEN 5-325 MG TABLET PO PRN ×2 (09:30)
[2018-03-26] MEDS ORDERED: MEPERIDINE HCL/PF INJ 25 MG/1 ML DISP.SYRIN IV PRN (09:30)
[2018-03-26] MEDS ORDERED: FENTANYL CITRATE INJ/PF 100 MCG/2 ML AMPUL IV PRN ×3 (09:30)
[2018-03-26] MEDS ORDERED: PROMETHAZINE HCL INJ 25 MG/1 ML VIAL IV PRN ×2 (09:30)
[2018-03-26] MEDS ORDERED: DIPHENHYDRAMINE HCL 50 MG/ML VIAL IV PRN (09:30)
--- NOTE | 2018-03-26 10:00 | Operative Report ---
Operative Report DATE OF SURGERY: 03/26/18 PREOPERATIVE DIAGNOSIS: Left bimalleolar ankle fracture OPERATION: Open reduction internal fixation left bimalleolar ankle fracture SURGEON: NIEVES MARTINEZ ANESTHESIA: GA ESTIMATED BLOOD LOSS: 25 PROCEDURE: The patient supine and operative table left lower extremities prepped and draped in sterile fashion. The limb is elevated for exsanguination tourniquet inflated 280 torr. Longitudinal incision was made over the distal lateral fibula and sharp dissection was carried incision and subperiosteal. Subperiosteal dissection is performed and the underlying fracture is identified. Its reduced longitudinally and held with a lobster skull clock clamp. Subsequently a [place] distal fibula plate is applied to the distal fibula with 3 screws distally and 3 screws proximally. The hardware position and fracture reduction assessed fluoroscopically and felt to be adequate. Attention was now turned to the medial aspect. Longitudinal incision made over the medial malleolus. The fracture was identified and exposed. Subperiosteally. Its reduced anatomically with a dental pick. Its held in place with 2x1.4 mm pins and subsequently 4.0 millimeter screws were placed over the pins. In this process there is a fragmentation of the distal fragment. The 4.0 millimeter screws are not removed. Sutures through bone holes were then used to help stabilize the medial fracture fragments. Fluoroscopically this is assessed and felt to be a near anatomic reduction and acceptable. The tourniquet is deflated. Hemostasis obtained with electrocautery. The wounds irrigated with bulb lavage. The septum closed with interrupted Vicryl followed by ethan. Sterile compressive dressing posterior plaster splint were applied and the patient's return to PACU in satisfactory condition.
--- NOTE | 2018-03-26 10:05 | Discharge Summary ---
Discharge Summary (SDC) - Discharge Final Diagnosis: Left bimalleolar ankle fracture Date of Surgery: 03/26/18 Discharge Date: 03/26/18 Condition: Good Treatment or Instructions: Touchdown weightbearing restriction left lower extremity Prescriptions: Oxycodone HCl/Acetaminophen [Percocet 5-325 mg Tablet] 1 tab PO Q6 PRN #40 tablet PRN Reason: Referrals: ROZINA PRESCOTT MD [Primary Care Provider] - Respiratory Treatments at Home: Deep Breathing/Coughing Discharge Activity: Balance Activity w/Rest, No tub bath, Other - Elevate left lower extremity Home Care Assistance: None Needed Adaptive Devices on Discharge: Axillary Crutches Report the Following to Your Physician Immediately: Shortness of Breath, Fever over 101 Degrees, Drainage-Foul Smelling
[2018-03-26] MEDS: FENTANYL CITRATE INJ/PF 100 MCG/2 ML AMPUL ONE ×2 (10:40→10:45)
[2018-03-26] MEDS ORDERED: MORPHINE SULFATE 10 MG/ML INJ ONE (10:43)
[2018-03-26] MEDS ORDERED: KETOROLAC TROMETHAMINE INJ/PF 30 MG/1 ML SDV ONE (10:43)
--- NOTE | 2018-03-26 11:02 | RADIOLOGY REPORT (SQ) ---
EXAM DESCRIPTION: NO CHG FLUORO; ANKLE LEFT AP/LATERAL COMPLETED DATE/TIME: 03/26/2018 10:47 am REASON FOR STUDY: ORIF LEFT ANKLE ASST WITH FLUORO IN OR S82.842A DISPLACED BIMALLEOLAR FRACTURE OF LEFT LOWER LEG, I COMPARISON: None. FLUOROSCOPY TIME: 0.4 minutes 5 images saved to PACS. TECHNIQUE: Intra-operative images acquired during surgical procedure to evaluate progress. NUMBER OF IMAGES: 5 LIMITATIONS: None. FINDINGS: Selected images from plate and screw fixation distal fibular fracture, medial malleolar fr acture with 2 cancellous screws. Anatomic alignment. IMPRESSION: IMAGE(S) OBTAINED DURING PROCEDURE. COMMENT: Quality ID [id number]: Final reports for procedures using fluoroscopy that document radiation exp osure indices, or exposure time and number of fluorographic images (if radiation exposure indices are not available) Please consult full operative report of the attending physician for description of the procedure. TECHNICAL DOCUMENTATION: JOB ID: [id number] [employer]- All Rights Reserved Reading location - IP/workstation name: [email or web address]
--- NOTE | 2018-03-26 11:02 | RADIOLOGY REPORT (SQ) ---
EXAM DESCRIPTION: NO CHG FLUORO; ANKLE LEFT AP/LATERAL COMPLETED DATE/TIME: 03/26/2018 10:47 am REASON FOR STUDY: ORIF LEFT ANKLE ASST WITH FLUORO IN OR S82.842A DISPLACED BIMALLEOLAR FRACTURE OF LEFT LOWER LEG, I COMPARISON: None. FLUOROSCOPY TIME: 0.4 minutes 5 images saved to PACS. TECHNIQUE: Intra-operative images acquired during surgical procedure to evaluate progress. NUMBER OF IMAGES: 5 LIMITATIONS: None. FINDINGS: Selected images from plate and screw fixation distal fibular fracture, medial malleolar fr acture with 2 cancellous screws. Anatomic alignment. IMPRESSION: IMAGE(S) OBTAINED DURING PROCEDURE. COMMENT: Quality ID [id number]: Final reports for procedures using fluoroscopy that document radiation exp osure indices, or exposure time and number of fluorographic images (if radiation exposure indices are not available) Please consult full operative report of the attending physician for description of the procedure. TECHNICAL DOCUMENTATION: JOB ID: [id number] [employer]- All Rights Reserved Reading location - IP/workstation name: [email or web address]
[2018-03-26] MEDS ORDERED: OXYCODONE-ACETAMINOPHEN 5-325 MG TABLET ONE (11:22)
[2018-03-26 13:23] VITALS: BP 126/78
[2018-03-26] MEDS ORDERED: SUCCINYLCHOLINE CHLORIDE INJ 200 MG/10 ML VIAL ONE (14:16)
[2018-03-26] MEDS ORDERED: KETOROLAC TROMETHAMINE 60 MG/2 ML SDV ONE (14:16)
[2018-03-26] MEDS ORDERED: GLYCOPYRROLATE 1 MG/5 ML SYRINGE ONE (14:16)
[2018-03-26] MEDS ORDERED: DEXAMETHASONE SOD PHOSPHATE INJ 4 MG/1 ML VIAL ONE (14:16)
[2018-03-26] MEDS ORDERED: ONDANSETRON HCL INJ/PF 4 MG/2 ML SDV ONE (14:16)
== END 2018-03-26 13:05 | disposition home or self-care (01) ==
LOC: OROUT 08:04
PROVIDERS: ATTEND Orthopaedic Surgery
DX: S82.842A Displaced bimalleolar fracture of left lower leg, initial encounter for closed fracture (principal); Z88.5 Allergy status to narcotic agent; F17.210 Nicotine dependence, cigarettes, uncomplicated; X58.XXXA Exposure to other specified factors, initial encounter
CPT/HCPCS: 36415; 85027; 81025; 80048; 73600; 27814; C1713 ×5; C1769; J2250; J3490 ×2; J0690; J1100; J1885 ×2; J3010; J0330; J2405; J2704; J0131; 01480; J2270

== ENCOUNTER 2018-04-24 14:48 | Observation (INO) | payer MEDICAID ==
[2018-04-24] MEDS ORDERED: HYDROXYZINE HCL INJ 50 MG/1 ML VIAL IM ONE (15:03)
--- NOTE | 2018-04-24 15:04 | ER Document Report ---
ED Medical Screen (RME) - General Chief Complaint: Overdose Stated Complaint: POSSIBLE OVERDOSE Time Seen by Provider: 04/24/18 15:02 Primary Care Provider: ROZINA PRESCOTT MD [Primary Care Provider] - Follow up as needed TRAVEL OUTSIDE OF THE [place] IN LAST 30 DAYS: No - HPI Notes: 04/24/18 15:03 Anxious coming in because she took 4 BC powders earlier this morning stating oralia t she is scared that she overdosed recently seen orthopedic physician because of a broken ankle. - Related Data Allergies/Adverse Reactions: latex Allergy (Mild, Verified 03/26/18 08:45) tramadol Allergy (Mild, Verified 03/26/18 08:44) hydrocodone bitartrate [From Vicodin] Adverse Reaction (Intermediate, Verified 08/02/16 16:54) Hives Past Medical History - Past Medical History Cardiac Medical History: Reports: Hx Hypertension - not medicated Denies: Hx Congestive Heart Failure, Hx Heart Attack Pulmonary Medical History: Denies: Hx Asthma, Hx Bronchitis, Hx COPD, Hx Pneumonia, Hx Tuberculosis Neurological Medical History: Denies: Hx Seizures Renal/ Medical History: Denies: Hx End Stage Renal Disease, Hx Kidney Stones, Hx Peritoneal Dialysis GI Medical History: Denies: Hx Cirrhosis, Hx Gastroesophageal Reflux Disease, Hx Ulcer Musculoskeltal Medical History: Denies Hx Arthritis, Denies Hx Multiple Sclerosis Psychiatric Medical History: Reports: Hx Anxiety, Hx Schizophrenia - pt denied at this visit Denies: Hx Bipolar Disorder, Hx Depression - Immunizations Immunizations up to date: No Hx Diphtheria, Pertussis, Tetanus Vaccination: Yes - 06/24/11 History of Influenza Vaccine for 12/2016 - 05/2017 Season: No Review of Systems - Review of Systems Constitutional: Other Physical Exam - Respiratory Respiratory status: No respiratory distress Chest status: Nontender Breath sounds: Normal Chest palpation: Normal - Cardiovascular Rhythm: Regular Heart sounds: Normal auscultation Doctor's Discharge - Discharge Referrals: ROZINA PRESCOTT MD [Primary Care Provider] - Follow up as needed
[2018-04-24] MEDS: NORMAL SALINE 1000 ML 1,000 ML IV PRN ×2 (15:16→16:12)
[2018-04-24 15:38] LABS: ABSOLUTE BASOPHILS # (AUTO) 0.1 10^3/uL (0.0-0.2); ABSOLUTE LYMPHOCYTES (AUTO) 2.2 10^3/uL (0.5-4.7); ABSOLUTE MONOCYTES (AUTO) 0.4 10^3/uL (0.1-1.4); ABSOLUTE NEUT (AUTO) 3.1 10^3/uL (1.7-8.2); EOSINOPHILS % (AUTO) 0.3 % (0-6); HEMATOCRIT 34.4 % (36.0-47.0); HEMOGLOBIN 10.9 g/dL (12.0-15.5); LYMPHOCYTES % (AUTO) 38.1 % (13-45); MEAN CORPUSCULAR HEMOGLOBIN 22.7 pg (27.0-33.4); MEAN CORPUSCULAR HGB CONC 31.7 g/dL (32.0-36.0); MEAN CORPUSCULAR VOLUME 71 fl (80-97); MONOCYTES % (AUTO) 6.5 % (3-13); PLATELET COUNT 366 10^3/uL (150-450); RED BLOOD COUNT 4.82 10^6/uL (3.72-5.28); RED CELL DISTRIBUTION WIDTH 23.1 % (11.5-14.0); SEGMENTED NEUTROPHILS % (AUTO) 54.1 % (42-78); TOTAL CELLS COUNTED % (AUTO) 100 %; WHITE BLOOD COUNT 5.7 10^3/uL (4.0-10.5)
[2018-04-24 15:43] LABS: APPEARANCE,URINE CLEAR; BILIRUBIN,URINE NEGATIVE (NEGATIVE); COLOR,URINE YELLOW; GLUCOSE, URINE NEGATIVE (NEGATIVE); KETONES,URINE TRACE mg/dL (NEGATIVE); LEUKOCYTE ESTERASE,URINE NEGATIVE (NEGATIVE); NITRITE,URINE NEGATIVE (NEGATIVE); PROTEIN,URINE 100 mg/dL (NEGATIVE); URINE SPECIFIC GRAVITY 1.024; UROBILINOGEN,URINE NEGATIVE mg/dL (<2.0)
[2018-04-24 15:57] LABS: URINE AMPHETAMINES SCREEN NEGATIVE; URINE BARBITURATES SCREEN NEGATIVE; URINE BENZODIAZEPINES SCREEN NEGATIVE; URINE COCAINE SCREEN UNCONFIRMED POSITIVE; URINE MARIJUANA (THC) SCREEN NEGATIVE; URINE METHADONE SCREEN NEGATIVE; URINE PHENCYCLIDINE SCREEN NEGATIVE
[2018-04-24 16:00] LABS: ACETAMINOPHEN 29 ug/mL (10-30); ALANINE AMINOTRANSFERASE 21 U/L (9-52); ALCOHOL 21 mg/dL (NONE DETECTED); ALKALINE PHOSPHATASE 90 U/L (38-126); ANION GAP 17 (5-19); ASPARTATE AMINO TRANSFERASE 28 U/L (14-36); BILIRUBIN,DIRECT 0.1 mg/dL (0.0-0.4); BILIRUBIN,TOTAL 0.2 mg/dL (0.2-1.3); BLOOD UREA NITROGEN 8 mg/dL (7-20); CALCIUM 10.1 mg/dL (8.4-10.2); CARBON DIOXIDE 21 mmol/L (22-30); CHLORIDE 106 mmol/L (98-107); GLUCOSE 97 mg/dL (75-110); SODIUM 143.5 mmol/L (137-145); TOTAL PROTEIN 8.5 g/dL (6.3-8.2)
--- NOTE | 2018-04-24 16:00 | ER Document Report ---
ED General - General Chief Complaint: Overdose Stated Complaint: POSSIBLE OVERDOSE Time Seen by Provider: 04/24/18 15:02 Mode of Arrival: Ambulatory Information source: Patient Notes: 27-year-old female status post recent left bimalleolar fracture and repair who presents to the emergency room anxious with concerns that she may have overdosed. She states she took extra Goody powder this morning at approximately 830. She states that afterwards, she did not feel right and she had ringing in her ears. She states she was nauseated and she vomited several times. Currently she denies nausea but she states that she is anxious. She does report she is got a history of anxiety. She denies any abdominal pain at this time. TRAVEL OUTSIDE OF THE [place] IN LAST 30 DAYS: No - HPI Onset: This morning Onset/Duration: Gradual Quality of pain: No pain Severity: Mild Associated symptoms: Nausea, Vomiting. denies: Chills, Fever Exacerbated by: Denies Relieved by: Denies Similar symptoms previously: No Recently seen / treated by doctor: Yes - Related Data Allergies/Adverse Reactions: latex Allergy (Mild, Verified 03/26/18 08:45) tramadol Allergy (Mild, Verified 03/26/18 08:44) hydrocodone bitartrate [From Vicodin] Adverse Reaction (Intermediate, Verified 08/02/16 16:54) Hives Past Medical History - General Information source: Patient - Social History Smoking Status: Unknown if Ever Smoked Cigarette use (# per day): No Chew tobacco use (# tins/day): No Frequency of alcohol use: None Drug Abuse: Other - Denies Lives with: Family Family History: Reviewed & Not Pertinent Patient has suicidal ideation: No Patient has homicidal ideation: No - Past Medical History Cardiac Medical History: Reports: Hx Hypertension - not medicated Denies: Hx Congestive Heart Failure, Hx Heart Attack Pulmonary Medical History: Denies: Hx Asthma, Hx Bronchitis, Hx COPD, Hx Pneumonia, Hx Tuberculosis Neurological Medical History: Denies: Hx Seizures Renal/ Medical History: Denies: Hx End Stage Renal Disease, Hx Kidney Stones, Hx Peritoneal Dialysis GI Medical History: Denies: Hx Cirrhosis, Hx Gastroesophageal Reflux Disease, Hx Ulcer Musculoskeletal Medical History: Denies Hx Arthritis, Denies Hx Multiple Sclerosis Psychiatric Medical History: Reports: Hx Anxiety, Hx Schizophrenia - pt denied at this visit Denies: Hx Bipolar Disorder, Hx Depression Past Surgical History: Reports: Hx Orthopedic Surgery - Immunizations Immunizations up to date: No Hx Diphtheria, Pertussis, Tetanus Vaccination: Yes - 06/24/11 Review of Systems - Review of Systems Constitutional: denies: Chills, Fever EENT: See HPI Cardiovascular: No symptoms reported Respiratory: No symptoms reported Gastrointestinal: See HPI Genitourinary: No symptoms reported Female Genitourinary: No symptoms reported Musculoskeletal: No symptoms reported Skin: No symptoms reported Hematologic/Lymphatic: No symptoms reported Neurological/Psychological: No symptoms reported Physical Exam - Vital signs Vitals: Temp Pulse Resp BP Pulse Ox 97.9 F 114 H 22 H 130/83 H 98 04/24/18 14:49 04/24/18 14:49 04/24/18 14:49 04/24/18 14:49 04/24/18 14:49 Notes: Physical exam: GENERAL: Patient is alert and oriented x3, no acute distress HEAD: Atraumatic, normocephalic. EYES: Pupils equal round and reactive to light, extraocular movements intact, sclera anicteric, conjunctiva are normal. ENT: TMs normal, nares patent, oropharynx clear without exudates. Moist mucous membranes. NECK: Normal range of motion, supple without obvious mass or JVD. LUNGS: Breath sounds clear to auscultation bilaterally and equal. No wheezes rales or rhonchi. HEART: Regular rate and rhythm without murmurs, rubs or gallops. ABDOMEN: Soft, normoactive bowel sounds. No tenderness to palpation. No guarding, no rebound. No masses appreciated. EXTREMITIES: Patient has left lower extremity in a fracture boot. No signifi cant calf swelling. NEUROLOGICAL: Cranial nerves II through XII grossly intact. Normal speech, mov ing all extremities. PSYCH: Normal mood, normal affect. SKIN: Warm, Dry, normal turgor, no rashes or lesions noted. Course - Re-evaluation Re-evalutation: 04/24/18 19:14 Because case with poison control recommends alkalizing urine, IV fluids, serial salicylate and basic metabolic panels. - Vital Signs Vital signs: Temp Pulse Resp BP Pulse Ox 97.9 F 114 H 22 H 130/83 H 98 04/24/18 14:49 04/24/18 14:49 04/24/18 14:49 04/24/18 14:49 04/24/18 14:49 - Laboratory Result Diagrams: 04/24/18 15:19 04/24/18 15:19 Laboratory results interpreted by me: 04/24/18 04/24/18 04/24/18 15:19 15:19 15:19 Hgb 10.9 L Hct 34.4 L MCV 71 L MCH 22.7 L MCHC 31.7 L RDW 23.1 H Carbon Dioxide 21 L Total Protein 8.5 H Urine Protein 100 H Urine Ketones TRACE H Urine Ascorbic Acid 40 H Salicylates 45.8 H* - Diagnostic Test Radiology reviewed: Image reviewed, Reports reviewed - X-ray shows no infiltrates Critical Care Note - Critical Care Note Total time excluding time spent on procedures (mins): 60 Discharge - Discharge Clinical Impression: Salicylate toxicity Condition: Stable Disposition: ADMITTED OBSERVATION Admitting Provider: Hospitalist - Dr House Unit Admitted: Telemetry
[2018-04-24 16:12] LABS: POTASSIUM 4.3 mmol/L (3.6-5.0)
[2018-04-24 16:14] LABS: SALICYLATE 45.8 mg/dL (2.0-20.0)
[2018-04-24] MEDS ORDERED: DEXTROSE 5%-WATER 1000 ML 1,000 ML with SODIUM BICARBONATE 150 MEQ IV PRN ×4 (16:26→18:20)
[2018-04-24] MEDS ORDERED: SODIUM BICARBONATE 8.4% INJ 50 MEQ/50 ML DISP.SYRIN ONE (16:34)
[2018-04-24 17:13] LABS: FREE T3 3.18 pg/mL (2.77-5.27); FREE T4 (FREE THYROXINE) 1.86 ng/dL (0.78-2.19)
[2018-04-24] MEDS ORDERED: ONDANSETRON HCL INJ/PF 4 MG/2 ML SDV IV PRN (17:18)
[2018-04-24 17:26] LABS: THYROID STIMULATING HORMONE 1.46 uIU/mL (0.47-4.68)
--- NOTE | 2018-04-24 18:29 | PDOC H&P ---
History of Present Illness Admission Date/PCP: 04/24/18 17:18 History of Present Illness: JYOTI BROWER is a 27 year old female presents to the emergency room due to acute onset of nausea, vomiting diarrhea and tinnitus started early this morning and persisted for a few hours. Patient also felt sluggish. No breathing issues or dizziness or lightheadedness. She had surgery for left bimalleolar fracture on 03/26/2018. She has had issues with pain since the surgery. She has been t aking [employer] powder for the past week. Today she took 4 packets this morning. She actually went to her orthopedic surgeon who prescribed her Percocet and Ambien for insomnia and pain. When the patient's symptoms did not resolve or improve she came to the emergency room. She tested positive for salicylate and her levels were 46. Acetaminophen level was 29 and she tested positive for cocaine. Alcohol level was 21. Past Medical History Cardiac Medical History: Reports: Hypertension - not medicated Denies: Congestive Heart Failure, Myocardial Infarction Pulmonary Medical History: Denies: Asthma, Bronchitis, Chronic Obstructive Pulmonary Disease (COPD), Pneumonia, Tuberculosis Neurological Medical History: Denies: Seizures Renal/ Medical History: Denies: End Stage Renal Disease GI Medical History: Denies: Cirrhosis, Gastroesophageal Reflux Disease Musculoskeltal Medical History: Denies: Arthritis Psychiatric Medical History: Denies: Bipolar Disorder, Depression Hematology: Reports: Anemia Denies: Bleeding Tendencies Past Surgical History Past Surgical History: Reports: Other - Ankle surgery Social History Smoking Status: Current Every Day Smoker Drugs: Marijuana Family History Family History: Reviewed & Not Pertinent, Hypertension Parental Family History Reviewed: Yes Children Family History Reviewed: NA Sibling(s) Family History Reviewed.: NA Medication/Allergy Home Medications: Oxycodone HCl/Acetaminophen [Percocet 5-325 mg Tablet] 1 tab PO Q6 PRN #40 tablet 03/26/18 Allergies/Adverse Reactions: latex Allergy (Mild, Verified 03/26/18 08:45) tramadol Allergy (Mild, Verified 03/26/18 08:44) hydrocodone bitartrate [From Vicodin] Adverse Reaction (Intermediate, Verified 08/02/16 16:54) Hives Physical Exam Vital Signs: Temp Pulse Resp BP Pulse Ox 97.9 F 114 H 22 H 130/83 H 98 04/24/18 14:49 04/24/18 14:49 04/24/18 14:49 04/24/18 14:49 04/24/18 14:49 Intake & Output 04/23/18 04/24/18 04/25/18 06:59 06:59 06:59 Intake Total 1999 Balance 1999 Weight 121 lb 4.068 oz General appearance: PRESENT: no acute distress, cooperative, thin Head exam: PRESENT: atraumatic, normocephalic Eye exam: PRESENT: PERRLA. ABSENT: conjunctival injection, nystagmus, scleral icterus Ear exam: ABSENT: bleeding, drainage Teeth exam: ABSENT: edentulous, poor dentation Throat exam: ABSENT: tonsillar exudate, tonsillogmegaly Neck exam: ABSENT: meningismus, tenderness, other Respiratory exam: PRESENT: clear to auscultation adan. ABSENT: accessory muscle use, prolonged expiratory phas Cardiovascular exam: PRESENT: RRR. ABSENT: bradycardia, systolic murmur, tachycardia Pulses: PRESENT: normal carotid pulses, normal radial pulses GI/Abdominal exam: PRESENT: normal bowel sounds, soft. ABSENT: tenderness Rectal exam: PRESENT: deferred Gentrourinary exam: ABSENT: erythema, lacerations, lesions Extremities exam: ABSENT: calf tenderness, clubbing Musculoskeletal exam: PRESENT: ambulatory. ABSENT: deformity Neurological exam: PRESENT: alert, awake, oriented to person, oriented to place, oriented to time, oriented to situation Psychiatric exam: PRESENT: anxious. ABSENT: agitated Skin exam: PRESENT: dry, intact, normal color. ABSENT: abrasion, cyanosis, erythema, jaundice Results Laboratory Results: 04/24/18 15:19 04/24/18 15:19 04/24/18 04/24/18 04/24/18 15:19 15:19 15:19 WBC 5.7 RBC 4.82 Hgb 10.9 L Hct 34.4 L MCV 71 L MCH 22.7 L MCHC 31.7 L RDW 23.1 H Plt Count 366 Seg Neutrophils % 54.1 Lymphocytes % 38.1 Monocytes % 6.5 Eosinophils % 0.3 Basophils % 1.0 Absolute Neutrophils 3.1 Absolute Lymphocytes 2.2 Absolute Monocytes 0.4 Absolute Eosinophils 0.0 Absolute Basophils 0.1 Sodium 143.5 Potassium 4.3 Chloride 106 Carbon Dioxide 21 L Anion Gap 17 BUN 8 Creatinine 0.77 Est GFR ( Amer) > 60 Est GFR (Non-Af Amer) > 60 Glucose 97 Calcium 10.1 Magnesium Total Bilirubin 0.2 AST 28 ALT 21 Alkaline Phosphatase 90 Total Protein 8.5 H Albumin 5.0 TSH Free T4 Free T3 pg/mL Serum HCG, Qual NEGATIVE Urine Color Urine Appearance Urine pH Ur Specific [place] Urine Protein Urine Glucose (UA) Urine Ketones Urine Blood Urine Nitrite Ur Leukocyte Esterase Urine WBC (Auto) Urine RBC (Auto) 04/24/18 04/24/18 04/24/18 15:19 15:19 15:19 WBC RBC Hgb Hct MCV MCH MCHC RDW Plt Count Seg Neutrophils % Lymphocytes % Monocytes % Eosinophils % Basophils % Absolute Neutrophils Absolute Lymphocytes Absolute Monocytes Absolute Eosinophils Absolute Basophils Sodium Potassium Chloride Carbon Dioxide Anion Gap BUN Creatinine Est GFR ( Amer) Est GFR (Non-Af Amer) Glucose Calcium Magnesium 1.8 Total Bilirubin AST ALT Alkaline Phosphatase Total Protein Albumin TSH 1.46 Free T4 1.86 Free T3 pg/mL 3.18 Serum HCG, Qual Urine Color YELLOW Urine Appearance CLEAR Urine pH 5.0 Ur Specific [place] 1.024 Urine Protein 100 H Urine Glucose (UA) NEGATIVE Urine Ketones TRACE H Urine Blood NEGATIVE Urine Nitrite NEGATIVE Ur Leukocyte Esterase NEGATIVE Urine WBC (Auto) 0 Urine RBC (Auto) 0 Assessment & Plan - Diagnosis (1) Salicylic acid salt poisoning Is this a current diagnosis for this admission?: Yes Plan: Admit this patient to telemetry for observation. Check chest x-ray and ABG. Continue alkalinization of urine was IV bicarbonate drip. Continue to monitor renal function, electrolytes, mental status every 4 hours. Also monitor salicylic acid levels periodically. (2) Smoking Is this a current diagnosis for this admission?: Yes Plan: Counseling for smoking cessation
--- NOTE | 2018-04-24 18:35 | RADIOLOGY REPORT (SQ) ---
EXAM DESCRIPTION: CHEST 2 VIEWS COMPLETED DATE/TIME: 04/24/2018 6:25 pm REASON FOR STUDY: salicylate toxicity COMPARISON: 11/23/2012. EXAM PARAMETERS: NUMBER OF VIEWS: two views TECHNIQUE: Digital Frontal and Lateral radiographic views of the chest acquired. RADIATION DOSE: NA LIMITATIONS: none FINDINGS: LUNGS AND PLEURA: No opacities, masses or pneumothorax. No pleural effusion. MEDIASTINUM AND HILAR STRUCTURES: No masses or contour abnormalities. HEART AND VASCULAR STRUCTURES: Heart normal size. No evidence for failure. BONES: No acute findings. HARDWARE: None in the chest. OTHER: No other significant finding. IMPRESSION: NO ACUTE RADIOGRAPHIC FINDING IN THE CHEST. TECHNICAL DOCUMENTATION: JOB ID: [id number] All Rights Reserved Reading location - IP/workstation name: [email or web address]
--- NOTE | 2018-04-24 19:51 | EKG REPORT ---
SEVERITY:- ABNORMAL ECG - SINUS RHYTHM SHORT JON, ACCELERATED AV CONDUCTION : Confirmed by: Hank Richardson MD 24-Apr-2018 19:50:17
[2018-04-24] MEDS ORDERED: PANTOPRAZOLE SODIUM 40 MG VIAL IV SCH (20:00)
[2018-04-24 20:01] LABS: ANION GAP 8 (5-19); BLOOD UREA NITROGEN 8 mg/dL (7-20); CALCIUM 8.6 mg/dL (8.4-10.2); CARBON DIOXIDE 25 mmol/L (22-30); CHLORIDE 107 mmol/L (98-107); GLUCOSE 91 mg/dL (75-110); SODIUM 139.8 mmol/L (137-145)
[2018-04-24 20:07] LABS: ACETAMINOPHEN < 10 ug/mL (10-30); POTASSIUM 3.8 mmol/L (3.6-5.0)
[2018-04-24 20:09] LABS: SALICYLATE 29.6 mg/dL (2.0-20.0)
[2018-04-24 20:20] LABS: ARTERIAL BLOOD BASE EXCESS 1.4 mmol/L; ARTERIAL BLOOD HCO3 23.9 mmol/L (20-24); ARTERIAL BLOOD O2 SATURATION 98.8 % (94-98); ARTERIAL BLOOD PCO2 29.9 mmHg (35-45); ARTERIAL BLOOD PH 7.52 (7.35-7.45); ARTERIAL BLOOD TOTAL CO2 24.8 mmol/L (21-25)
[2018-04-24 20:21] LABS: ARTERIAL BLOOD FIO2 ROOM AIR
[2018-04-24] MEDS: FAMOTIDINE INJ/PF 20 MG/2 ML SDV IV SCH (22:44)
[2018-04-24] MEDS ORDERED: PANTOPRAZOLE SODIUM 40 MG VIAL IV ONE (22:45)
[2018-04-25 09:33] LABS: RED BLOOD COUNT 3.89 10^6/uL (3.72-5.28); RED CELL DISTRIBUTION WIDTH 23.1 % (11.5-14.0); WHITE BLOOD COUNT 6.1 10^3/uL (4.0-10.5)
[2018-04-25 09:46] LABS: HEMATOCRIT 27.6 % (36.0-47.0); MEAN CORPUSCULAR HEMOGLOBIN 22.6 pg (27.0-33.4); MEAN CORPUSCULAR HGB CONC 31.9 g/dL (32.0-36.0); MEAN CORPUSCULAR VOLUME 71 fl (80-97); PLATELET COUNT 242 10^3/uL (150-450)
[2018-04-25 09:49] LABS: ACETAMINOPHEN < 10 ug/mL (10-30); ANION GAP 8 (5-19); BLOOD UREA NITROGEN 10 mg/dL (7-20); CALCIUM 8.9 mg/dL (8.4-10.2); CARBON DIOXIDE 28 mmol/L (22-30); CHLORIDE 103 mmol/L (98-107); GLUCOSE 88 mg/dL (75-110); POTASSIUM 3.3 mmol/L (3.6-5.0); SALICYLATE 10.9 mg/dL (2.0-20.0)
[2018-04-25 10:00] LABS: HEMOGLOBIN 8.8 g/dL (12.0-15.5)
[2018-04-25] MEDS: FAMOTIDINE INJ/PF 20 MG/2 ML SDV IV SCH (10:50)
[2018-04-25 12:56] LABS: ARTERIAL BLOOD BASE EXCESS 2.1 mmol/L; ARTERIAL BLOOD H2CO3 1.08 mmol/L (1.05-1.35); ARTERIAL BLOOD HCO3 25.7 mmol/L (20-24); ARTERIAL BLOOD O2 SATURATION 98.5 % (94-98); ARTERIAL BLOOD PH 7.47 (7.35-7.45); ARTERIAL BLOOD TOTAL CO2 26.8 mmol/L (21-25)
[2018-04-25 12:58] LABS: ARTERIAL BLOOD FIO2 ROOM AIR
[2018-04-25 14:41] LABS: HEMATOCRIT 28.2 % (36.0-47.0); HEMOGLOBIN 9.1 g/dL (12.0-15.5); MEAN CORPUSCULAR HEMOGLOBIN 23.1 pg (27.0-33.4); MEAN CORPUSCULAR HGB CONC 32.2 g/dL (32.0-36.0); MEAN CORPUSCULAR VOLUME 72 fl (80-97); PLATELET COUNT 247 10^3/uL (150-450); RED BLOOD COUNT 3.93 10^6/uL (3.72-5.28); RED CELL DISTRIBUTION WIDTH 22.9 % (11.5-14.0); WHITE BLOOD COUNT 5.2 10^3/uL (4.0-10.5)
[2018-04-25 14:47] VITALS: BP 130/83
--- NOTE | 2018-04-25 15:25 | PDOC DISCHARGE SUMMARY ---
General - Admit/Disc Date/PCP Admission Date/Primary Care Provider: 04/24/18 17:18 Discharge Date: 04/25/18 - Discharge Diagnosis (1) Salicylic acid salt poisoning Is this a current diagnosis for this admission?: Yes (2) Smoking Is this a current diagnosis for this admission?: Yes - Additional Information Resuscitation Status: Full Code Discharge Diet: As Tolerated Discharge Activity: Activity As Tolerated Home Medications: Oxycodone HCl/Acetaminophen [Percocet 5-325 mg Tablet] 1 tab PO Q6 04/24/18 History of Present Illness History of Present Illness: JYOTI BROWER is a 27 year old female presents to the emergency room due to acute onset of nausea, vomiting diarrhea and tinnitus started early this morning and persisted for a few hours. Patient also felt sluggish. No breathing issues or dizziness or lightheadedness. She had surgery for left bimalleolar fracture on 03/26/2018. She has had issues with pain since the surgery. She has been taking [employer] powder for the past week. Today she took 4 packets this morning. She actually went to her orthopedic surgeon who prescribed her Percocet and Ambien for insomnia and pain. When the patient's symptoms did not resolve or improve she came to the emergency room. She tested positive for salicylate and her levels were 46. Acetaminophen level was 29 and she tested positive for cocaine. Alcohol level was 21. Hospital Course Hospital Course: Patient was admitted for observation. Salicylic acid levels were 46 on admission. She received IV bicarbonate drip. Her levels were 10 on discharge. She was completely asymptomatic on discharge. She had anion gap metabolic acidosis and respiratory alkalosis on admission. This has resolved on discharge. Patient stable for discharge. Follow-up with primary care physician. Physical Exam Vital Signs: Temp Pulse Resp BP Pulse Ox 97.8 F 85 16 130/83 H 100 04/25/18 14:45 04/25/18 14:45 04/25/18 14:45 04/25/18 14:45 04/25/18 14:45 Intake & Output 04/24/18 04/25/18 04/26/18 06:59 06:59 06:59 Intake Total 3263 354 Output Total 350 400 Balance 2913 -46 Weight 134 lb 11.239 oz General appearance: PRESENT: no acute distress, cooperative Head exam: PRESENT: atraumatic, normocephalic Mouth exam: PRESENT: moist, neck supple Neck exam: ABSENT: meningismus, tenderness Respiratory exam: PRESENT: clear to auscultation adan. ABSENT: accessory muscle use Cardiovascular exam: PRESENT: RRR Pulses: PRESENT: normal radial pulses GI/Abdominal exam: PRESENT: normal bowel sounds, soft. ABSENT: tenderness Rectal exam: PRESENT: deferred Neurological exam: PRESENT: alert, awake, oriented to person, oriented to place, oriented to time, oriented to situation Results Laboratory Results: 04/25/18 14:25 04/25/18 09:01 04/24/18 04/24/18 04/24/18 15:19 15:19 15:19 WBC 5.7 RBC 4.82 Hgb 10.9 L Hct 34.4 L MCV 71 L MCH 22.7 L MCHC 31.7 L RDW 23.1 H Plt Count 366 Seg Neutrophils % 54.1 Lymphocytes % 38.1 Monocytes % 6.5 Eosinophils % 0.3 Basophils % 1.0 Absolute Neutrophils 3.1 Absolute Lymphocytes 2.2 Absolute Monocytes 0.4 Absolute Eosinophils 0.0 Absolute Basophils 0.1 Carbonic Acid HCO3/H2CO3 Ratio ABG pH ABG pCO2 ABG pO2 ABG HCO3 ABG O2 Saturation ABG Base Excess FiO2 Sodium 143.5 Potassium 4.3 Chloride 106 Carbon Dioxide 21 L Anion Gap 17 BUN 8 Creatinine 0.77 Est GFR ( Amer) > 60 Est GFR (Non-Af Amer) > 60 Glucose 97 Calcium 10.1 Magnesium Total Bilirubin 0.2 AST 28 ALT 21 Alkaline Phosphatase 90 Total Protein 8.5 H Albumin 5.0 TSH Free T4 Free T3 pg/mL Serum HCG, Qual NEGATIVE Urine Color Urine Appearance Urine pH Ur Specific [place] Urine Protein Urine Glucose (UA) Urine Ketones Urine Blood Urine Nitrite Ur Leukocyte Esterase Urine WBC (Auto) Urine RBC (Auto) 04/24/18 04/24/18 04/24/18 15: 15: 15:19 WBC RBC Hgb Hct MCV MCH MCHC RDW Plt Count Seg Neutrophils % Lymphocytes % Monocytes % Eosinophils % Basophils % Absolute Neutrophils Absolute Lymphocytes Absolute Monocytes Absolute Eosinophils Absolute Basophils Carbonic Acid HCO3/H2CO3 Ratio ABG pH ABG pCO2 ABG pO2 ABG HCO3 ABG O2 Saturation ABG Base Excess FiO2 Sodium Potassium Chloride Carbon Dioxide Anion Gap BUN Creatinine Est GFR ( Amer) Est GFR (Non-Af Amer) Glucose Calcium Magnesium 1.8 Total Bilirubin AST ALT Alkaline Phosphatase Total Protein Albumin TSH 1.46 Free T4 1.86 Free T3 pg/mL 3.18 Serum HCG, Qual Urine Color YELLOW Urine Appearance CLEAR Urine pH 5.0 Ur Specific [place] 1.024 Urine Protein 100 H Urine Glucose (UA) NEGATIVE Urine Ketones TRACE H Urine Blood NEGATIVE Urine Nitrite NEGATIVE Ur Leukocyte Esterase NEGATIVE Urine WBC (Auto) 0 Urine RBC (Auto) 0 04/24/18 04/24/18 04/25/18 19:24 20:00 09:01 WBC 6.1 RBC 3.89 Hgb 8.8 L D Hct 27.6 L MCV 71 L MCH 22.6 L MCHC 31.9 L RDW 23.1 H Plt Count 242 Seg Neutrophils % Lymphocytes % Monocytes % Eosinophils % Basophils % Absolute Neutrophils Absolute Lymphocytes Absolute Monocytes Absolute Eosinophils Absolute Basophils Carbonic Acid 0.90 L HCO3/H2CO3 Ratio 26:1 ABG pH 7.52 H ABG pCO2 29.9 L ABG pO2 125.0 H ABG HCO3 23.9 ABG O2 Saturation 98.8 H ABG Base Excess 1.4 FiO2 ROOM AIR Sodium 139.8 Potassium 3.8 Chloride 107 Carbon Dioxide 25 Anion Gap 8 BUN 8 Creatinine 0.59 Est GFR ( Amer) > 60 Est GFR (Non-Af Amer) > 60 Glucose 91 Calcium 8.6 Magnesium Total Bilirubin AST ALT Alkaline Phosphatase Total Protein Albumin TSH Free T4 Free T3 pg/mL Serum HCG, Qual Urine Color Urine Appearance Urine pH Ur Specific [place] Urine Protein Urine Glucose (UA) Urine Ketones Urine Blood Urine Nitrite Ur Leukocyte Esterase Urine WBC (Auto) Urine RBC (Auto) 04/25/18 04/25/18 04/25/18 09:01 09:45 14:25 WBC 5.2 RBC 3.93 Hgb 9.1 L Hct 28.2 L MCV 72 L MCH 23.1 L MCHC 32.2 RDW 22.9 H Plt Count 247 Seg Neutrophils % Lymphocytes % Monocytes % Eosinophils % Basophils % Absolute Neutrophils Absolute Lymphocytes Absolute Monocytes Absolute Eosinophils Absolute Basophils Carbonic Acid 1.08 HCO3/H2CO3 Ratio 23:1 ABG pH 7.47 H ABG pCO2 36.0 ABG pO2 116.0 H ABG HCO3 25.7 H ABG O2 Saturation 98.5 H ABG Base Excess 2.1 FiO2 ROOM AIR Sodium 139.0 Potassium 3.3 L Chloride 103 Carbon Dioxide 28 Anion Gap 8 BUN 10 Creatinine 0.78 Est GFR ( Amer) > 60 Est GFR (Non-Af Amer) > 60 Glucose 88 Calcium 8.9 Magnesium Total Bilirubin AST ALT Alkaline Phosphatase Total Protein Albumin TSH Free T4 Free T3 pg/mL Serum HCG, Qual Urine Color Urine Appearance Urine pH Ur Specific [place] Urine Protein Urine Glucose (UA) Urine Ketones Urine Blood Urine Nitrite Ur Leukocyte Esterase Urine WBC (Auto) Urine RBC (Auto) Impressions: Chest X-Ray 04/24/18 00:00 IMPRESSION: NO ACUTE RADIOGRAPHIC FINDING IN THE CHEST. Qualifiers - * PATIENT BEING DISCHARGED WITH ANY OF THE FOLLOWING DIAGNOSIS: No
[2018-04-25] MEDS ORDERED: PANTOPRAZOLE SODIUM 40 MG VIAL IV SCH (18:00)
== END 2018-04-25 15:00 | disposition home or self-care (01) ==
LOC: ER 14:48 → UNDOADMOB 16:52 → EH 16:52 → 3N 20:50
PROVIDERS: ADMIT Internal Medicine; ATTEND Internal Medicine
DX: T39.091A Poisoning by salicylates, accidental (unintentional), initial encounter (principal); H93.19 Tinnitus, unspecified ear; R11.2 Nausea with vomiting, unspecified; R19.7 Diarrhea, unspecified; F17.200 Nicotine dependence, unspecified, uncomplicated; R78.2 Finding of cocaine in blood; E87.4 Mixed disorder of acid-base balance; Z82.49 Family history of ischemic heart disease and other diseases of the circulatory system; Z98.890 Other specified postprocedural states
CPT/HCPCS: 93005; 36415 ×2; 84439; 80307 ×6; 82803 ×2; 83735; 84443; 84703; 85025; 85027; 80048 ×2; 80053; 81001; 84481; 71046; 93010; 36600 ×2; J3410; S0164; J3490; J7060; J7030; S0028 ×2; 96360; 96372; 99291

== ENCOUNTER 2018-05-18 23:09 | Observation (INO) | payer SELFPAY ==
[2018-05-18] MEDS ORDERED: NALOXONE HCL INJ 2 MG/2 ML DISP.SYRIN ONE ×3 (23:13→23:25)
[2018-05-18] MEDS ORDERED: NALOXONE HCL INJ/PF 0.4 MG/1 ML SDV IV ONE (23:27)
[2018-05-18] MEDS ORDERED: ONDANSETRON HCL INJ/PF 4 MG/2 ML SDV IV ONE (23:28)
[2018-05-18] MEDS ORDERED: NORMAL SALINE 1000 ML 1,000 ML IV ONE (23:28)
--- NOTE | 2018-05-18 23:31 | ER Document Report ---
ED General - General Chief Complaint: Overdose Stated Complaint: OTHER Notes: Patient is a 27-year-old female without chronic medical problems who presents tonight obtunded, apneic after being dropped off by a friend. He states that she took medications tonight and no other history can be provided. Due to the patient's depressed mental status she likewise cannot provide any meaningful history. TRAVEL OUTSIDE OF THE [place] IN LAST 30 DAYS: No - Related Data Allergies/Adverse Reactions: latex Allergy (Mild, Verified 03/26/18 08:45) tramadol Allergy (Mild, Verified 03/26/18 08:44) hydrocodone bitartrate [From Vicodin] Adverse Reaction (Intermediate, Verified 08/02/16 16:54) Hives Past Medical History - General Cannot obtain history due to: Unstable vital signs, Altered mental status - Social History Smoking Status: Unknown if Ever Smoked Drug Abuse: Cocaine, Prescription drugs Family History: Reviewed & Not Pertinent - Past Medical History Cardiac Medical History: Reports: Hx Hypertension - not medicated Denies: Hx Congestive Heart Failure, Hx Heart Attack Pulmonary Medical History: Denies: Hx Asthma, Hx Bronchitis, Hx COPD, Hx Pneumonia, Hx Tuberculosis Neurological Medical History: Denies: Hx Seizures Renal/ Medical History: Denies: Hx End Stage Renal Disease, Hx Kidney Stones, Hx Peritoneal Dialysis GI Medical History: Denies: Hx Cirrhosis, Hx Gastroesophageal Reflux Disease, Hx Ulcer Musculoskeletal Medical History: Denies Hx Arthritis, Denies Hx Multiple Sclerosis Psychiatric Medical History: Reports: Hx Anxiety, Hx Schizophrenia - pt denied at this visit Denies: Hx Bipolar Disorder, Hx Depression Past Surgical History: Reports: Hx Orthopedic Surgery, Other - Ankle surgery - Immunizations Immunizations up to date: No Hx Diphtheria, Pertussis, Tetanus Vaccination: Yes - 06/24/11 Review of Systems - Review of Systems -: Yes ROS unobtainable due to patient's medical condition Physical Exam - Vital signs Vitals: Resp 17 05/18/18 23:17 Interpretation: Hypoxic, Other - Apneic Notes: PHYSICAL EXAMINATION: GENERAL: Obtunded, unresponsive HEAD: Atraumatic, normocephalic. EYES: Pupils pinpoint, minimally reactive ENT: nares patent, oropharynx clear without exudates. Dry mucous membranes. NECK: Normal range of motion, supple without lymphadenopathy LUNGS: No breath sounds HEART: Regular tachycardia without murmurs ABDOMEN: No masses appreciated. EXTREMITIES: No pitting or edema. Diffuse cyanosis NEUROLOGICAL: GCS 3 PSYCH: Obtunded SKIN: Cool, normal turgor, no rashes or lesions noted. Course - Re-evaluation Re-evalutation: 05/18/18 23:29 Documentation is delayed as I been at the patient's bedside continuously for the past 15 minutes. The patient presented obtunded, apneic. Initial saturations in the 40s. Patient did have a pulse. She was immediately brought into the trauma resuscitation room. We began assisting ventilations with bag valve mask ventilation. Nasopharyngeal airway inserted. 2 mg of naloxone was administered intramuscularly into the right thigh. Patient had no response to this. IV access established. Bagging continued. A milligram of naloxone was administered IV, again no significant response. A second milligram was again administered at this point the patient began spontaneously breathing but did not respond. After a total of 6 mg in combination between 2 mg of intramuscular and 4 mg intravenous the patient did wake up and states that her name was Annabelle. She did not however have any further conversation. She was breathing spontaneously. Initial hypotension resolved. Patient did receive a milligrams of ondansetron as prophylaxis for anticipated nausea and vomiting withdrawals. IV fluid r esuscitation initiated. Patient is maintained on awake overnight monitor. A Narcan infusion will be initiated given the quantity of the locks and that was required to resolve patient's apnea and profound sedation. This will be started at 4 mg/h. Patient is in guarded condition, will require frequent reassessments. 05/18/18 23:38 Patient is still not very responsive, does not answer any questions although is breathing on her own. Remains moderately tachycardic. 05/19/18 00:00 Patient is now much more alert, talking in a coherent fashion. States that she snorted fentanyl. We will pause the Narcan infusion and monitor the patient to determine whether or not she will require restarting the infusion and require hospitalization. 05/19/18 00:51 After approximately 50 minutes off the Narcan infusion the patient has again become more lethargic, becoming hypoxic down to 91% on room air. The naloxone infusion has been reinitiated. At this point will obtain labs and plan on hospitalization. 05/19/18 02:27 Patient has remained alert, oriented, no further episodes of hypoxemia while on Narcan infusion. I discussed this case with the hospitalist who has accepted the patient for ICU admission. - Vital Signs Vital signs: Temp Pulse Resp BP Pulse Ox 97.3 F 15 104/72 99 05/18/18 23:29 05/19/18 01:21 05/19/18 01:21 05/19/18 01:21 - Laboratory Result Diagrams: 05/19/18 01:23 05/19/18 01:23 Laboratory results interpreted by me: 05/19/18 05/19/18 05/19/18 00:05 01:23 01:23 WBC 14.8 H Hgb 9.7 L Hct 30.8 L MCV 71 L MCH 22.4 L MCHC 31.4 L RDW 21.4 H Seg Neutrophils % 85.3 H Lymphocytes % 8.4 L Absolute Neutrophils 12.6 H Glucose 66 L Calcium 8.1 L Urine Protein 100 H Urine Glucose (UA) 50 H Urine Blood SMALL H Critical Care Note - Critical Care Note Total time excluding time spent on procedures (mins): 40 Comments: Critical care time spent obtaining history from patient or surrogate, evaluation of patient's response to treatment, examination of patient, ordering and p erforming treatments and interventions, ordering and review of laboratory studies, re-evaluation of patient's condition, ordering and review of radiographic studies and review of old charts Discharge - Discharge Clinical Impression: Apnea Opiate overdose Qualifiers: Encounter type: initial encounter Injury intent: accidental or unintentional Qualified Code(s): T40.601A - Poisoning by unspecified narcotics, accidental (unintentional), initial encounter Alcohol intoxication Qualifiers: Complication of substance-induced condition: uncomplicated Qualified Code(s): F10.920 - Alcohol use, unspecified with intoxication, uncomplicated Condition: Fair Disposition: ADMITTED OBSERVATION Admitting Provider: Hospitalist Unit Admitted: ICU
[2018-05-18] MEDS: NORMAL SALINE 500 ML with NALOXONE HCL 2 MG IV PRN ×2 (23:35)
[2018-05-19 01:35] LABS: ABSOLUTE BASOPHILS # (AUTO) 0.1 10^3/uL (0.0-0.2); ABSOLUTE LYMPHOCYTES (AUTO) 1.2 10^3/uL (0.5-4.7); ABSOLUTE MONOCYTES (AUTO) 0.9 10^3/uL (0.1-1.4); ABSOLUTE NEUT (AUTO) 12.6 10^3/uL (1.7-8.2); BASOPHILS % (AUTO) 0.4 % (0-2); HEMATOCRIT 30.8 % (36.0-47.0); HEMOGLOBIN 9.7 g/dL (12.0-15.5); LYMPHOCYTES % (AUTO) 8.4 % (13-45); MEAN CORPUSCULAR HEMOGLOBIN 22.4 pg (27.0-33.4); MEAN CORPUSCULAR HGB CONC 31.4 g/dL (32.0-36.0); MEAN CORPUSCULAR VOLUME 71 fl (80-97); MONOCYTES % (AUTO) 5.9 % (3-13); PLATELET COUNT 314 10^3/uL (150-450); RED BLOOD COUNT 4.31 10^6/uL (3.72-5.28); RED CELL DISTRIBUTION WIDTH 21.4 % (11.5-14.0); SEGMENTED NEUTROPHILS % (AUTO) 85.3 % (42-78); TOTAL CELLS COUNTED % (AUTO) 100 %; WHITE BLOOD COUNT 14.8 10^3/uL (4.0-10.5)
[2018-05-19 01:44] LABS: APPEARANCE,URINE SLIGHTLY-CLOUDY; BILIRUBIN,URINE NEGATIVE (NEGATIVE); COLOR,URINE STRAW; GLUCOSE, URINE 50 mg/dL (NEGATIVE); KETONES,URINE NEGATIVE (NEGATIVE); LEUKOCYTE ESTERASE,URINE NEGATIVE (NEGATIVE); NITRITE,URINE NEGATIVE (NEGATIVE); PROTEIN,URINE 100 mg/dL (NEGATIVE); URINE SPECIFIC GRAVITY 1.006; UROBILINOGEN,URINE NEGATIVE mg/dL (<2.0)
[2018-05-19 01:53] LABS: URINE AMPHETAMINES SCREEN NEGATIVE; URINE BARBITURATES SCREEN NEGATIVE; URINE BENZODIAZEPINES SCREEN NEGATIVE; URINE COCAINE SCREEN UNCONFIRMED POSITIVE; URINE MARIJUANA (THC) SCREEN NEGATIVE; URINE METHADONE SCREEN NEGATIVE; URINE PHENCYCLIDINE SCREEN NEGATIVE
[2018-05-19 01:56] LABS: ALCOHOL 273 mg/dL (NONE DETECTED); ANION GAP 13 (5-19); BLOOD UREA NITROGEN 11 mg/dL (7-20); CALCIUM 8.1 mg/dL (8.4-10.2); CARBON DIOXIDE 23 mmol/L (22-30); CHLORIDE 107 mmol/L (98-107); POTASSIUM 4.7 mmol/L (3.6-5.0); SODIUM 142.7 mmol/L (137-145)
[2018-05-19 01:58] LABS: GLUCOSE 66 mg/dL (75-110)
[2018-05-19] MEDS ORDERED: NALOXONE HCL INJ 2 MG/2 ML DISP.SYRIN ONE ×3 (02:40→05:36)
[2018-05-19] MEDS: NORMAL SALINE 500 ML with NALOXONE HCL 2 MG IV PRN ×2 (03:03)
[2018-05-19] MEDS ORDERED: MAG HYDROX/AL HYDROX/SIMETH SUSP 30 ML UDCUP PO PRN (03:55)
[2018-05-19] MEDS ORDERED: ONDANSETRON 4 MG TAB.RAPDIS PO PRN (03:55)
[2018-05-19] MEDS ORDERED: MAGNESIUM HYDROXIDE SUSP 30 ML UDCUP PO PRN (03:55)
[2018-05-19] MEDS ORDERED: ONDANSETRON HCL INJ/PF 4 MG/2 ML SDV IV PRN (03:55)
[2018-05-19] MEDS ORDERED: NORMAL SALINE 500 ML with NALOXONE HCL 2 MG IV PRN ×2 (03:59)
--- NOTE | 2018-05-19 06:33 | PDOC H&P ---
History of Present Illness Admission Date/PCP: 05/19/18 02:51 Patient complains of: Acute severe opioid overdose History of Present Illness: JYOTI BROWER is a 27 year old female who presented via EMS to the emergency room with an acute opioid overdose. The patient was unresponsive, severely hypoxic, severely hypoventilating, hypotensive and bradycardic upon her arrival to the emergency room. She was given IV Narcan a total of 6 mg in order to elicit improvement. She was subsequently started on a Narcan drip and became normally responsive. When she was taken off the Narcan drip on a test/trial basis she became poorly responsive and somnolent thus the Narcan infusion was resumed and arrangements were made for the patient to be admitted. To my quest ioning the patient admits that she has chronic pain in her ankle after surgery on March 26, 2018 and she is unable to get more Percocet for it until next month, so she uses/abuses whenever she can get. Late last night she snorted heroin &/or fentanyl, she also consumed a large amount of alcohol. She admits that she has used opiates and many other substances in this manner before but denies prior overdose symptoms. She is agreeable to remaining on the Narcan drip until a trial discontinuation can be arranged again at 6:00 AM with potential discharge if she has no somnolence or change in mental status by 8 AM. She is thus admitted to the hospitalist service for inpatient observation statu s of her opioid/polysubstance overdose. Past Medical History Cardiac Medical History: Reports: Hypertension - not medicated Denies: Congestive Heart Failure, Coronary Artery Disease, DVT, Myocardial Infarction Pulmonary Medical History: Denies: Asthma, Bronchitis, Chronic Obstructive Pulmonary Disease (COPD), Pneumonia, Tuberculosis EENT Medical History: Reports: None Neurological Medical History: Denies: Multiple Sclerosis, Seizures Endocrine Medical History: Denies: Diabetes Mellitus Type 1, Diabetes Mellitus Type 2, Hyperthyroidism, Hypothyroidism Renal/ Medical History: Denies: Chronic Kidney Disease, Nephrolithiasis Malignancy Medical History: Reports: None GI Medical History: Denies: Cirrhosis, Crohn's Disease, Gastroesophageal Reflux Disease, Hepatitis, Ulcerative Colitis Musculoskeltal Medical History: Reports: Arthritis - 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 Denies: Fibromyalgia Skin Medical History: Denies: Eczema, Psoriasis Psychiatric Medical History: Reports: Bipolar Disorder, Depression, General Anxiety Disorder, Substance Abuse Denies: Alcohol Dependency, Tobacco Dependency Traumatic Medical History: Reports: None Hematology: Reports: Anemia Denies: Bleeding Tendencies Infectious Medical History: Reports: None Past Surgical History Past Surgical History: Reports: Orthopedic Surgery - Left ankle open reduction and internal fixation repair March 26, 2018 Social History Information Source: Patient Lives with: Parents Smoking Status: Never Smoker Frequency of Alcohol Use: Social Hx Recreational Drug Use: Yes Drugs: Cocaine, Marijuana Hx Prescription Drug Abuse: Yes - Fentanyl - Advance Directive Resuscitation Status: Full Code Surrogate healthcare decision maker:: Father Family History Family History: Hypertension, Other - Mental illnesses Parental Family History Reviewed: Yes Children Family History Reviewed: No Sibling(s) Family History Reviewed.: Yes Medication/Allergy Home Medications: Oxycodone HCl/Acetaminophen [Percocet 5-325 mg Tablet] 1 tab PO Q6 04/24/18 Allergies/Adverse Reactions: latex Allergy (Mild, Verified 03/26/18 08:45) tramadol Allergy (Mild, Verified 03/26/18 08:44) hydrocodone bitartrate [From Vicodin] Adverse Reaction (Intermediate, Verified 08/02/16 16:54) Hives Review of Systems Constitutional: ABSENT: chills, fever(s) Eyes: ABSENT: visual disturbances, other - Eye pain Ears: ABSENT: hearing changes, other - Ear pain Nose, Mouth, and Throat: ABSENT: mouth pain, sore throat Cardiovascular: ABSENT: chest pain, dyspnea on exertion, orthropnea, palpitations Respiratory: ABSENT: cough, dyspnea Gastrointestinal: ABSENT: abdominal pain, constipation, diarrhea, nausea, vomiting Genitourinary: ABSENT: dysuria, hematuria Musculoskeletal: PRESENT: joint swelling - Left ankle at times, other - Pain left ankle status post open reduction and internal fixation with a plate and screws. ABSENT: back pain Integumentary: ABSENT: pruritus, rash Neurological: ABSENT: confusion, convulsions, focal weakness, memory loss Psychiatric: PRESENT: anxiety, depression, other - "It is my bipolar". ABSENT: hallucinations, homidical ideation, suicidal ideation Endocrine: ABSENT: cold intolerance, heat intolerance Hematologic/Lymphatic: ABSENT: easy bleeding, easy bruising Physical Exam Vital Signs: Temp Pulse Resp BP Pulse Ox 98.5 F 16 103/67 99 05/19/18 03:11 05/19/18 03:01 05/19/18 03:01 05/19/18 03:01 Intake & Output 05/17/18 05/18/18 05/19/18 23:59 23:59 23:59 Intake Total 1502 Balance 1502 Weight 63.1 kg General appearance: PRESENT: no acute distress, cooperative Head exam: PRESENT: atraumatic, normocephalic Eye exam: PRESENT: conjunctiva pink, EOMI. ABSENT: scleral icterus Ear exam: PRESENT: normal external ear exam. ABSENT: bleeding, drainage Mouth exam: PRESENT: dry mucosa, neck supple Neck exam: PRESENT: full ROM. ABSENT: thyromegaly, tracheal deviation Respiratory exam: PRESENT: clear to auscultation adan, symmetrical, unlabored Cardiovascular exam: PRESENT: RRR. ABSENT: clicks, gallop, rubs Pulses: PRESENT: normal radial pulses, normal dorsalis pedis pul Vascular exam: PRESENT: normal capillary refill. ABSENT: pallor GI/Abdominal exam: PRESENT: normal bowel sounds, soft Rectal exam: PRESENT: deferred Extremities exam: PRESENT: tenderness - Tender left ankle to palpation most tender on the lateral aspect versus the medial aspect.. ABSENT: joint swelling, pedal edema Musculoskeletal exam: ABSENT: deformity, dislocation Neurological exam: PRESENT: alert, awake, oriented to person, oriented to place, oriented to time, oriented to situation, CN II-XII grossly intact. ABSENT: motor sensory deficit Psychiatric exam: PRESENT: appropriate affect, normal mood Skin exam: PRESENT: dry, intact, warm. ABSENT: jaundice, rash, urticaria Results Laboratory Results: 05/19/18 01:23 05/19/18 01:23 05/19/18 05/19/18 05/19/18 00:05 01:23 01:23 WBC 14.8 H RBC 4.31 Hgb 9.7 L Hct 30.8 L MCV 71 L MCH 22.4 L MCHC 31.4 L RDW 21.4 H Plt Count 314 Seg Neutrophils % 85.3 H Lymphocytes % 8.4 L Monocytes % 5.9 Eosinophils % 0.0 Basophils % 0.4 Absolute Neutrophils 12.6 H Absolute Lymphocytes 1.2 Absolute Monocytes 0.9 Absolute Eosinophils 0.0 Absolute Basophils 0.1 Sodium 142.7 Potassium 4.7 Chloride 107 Carbon Dioxide 23 Anion Gap 13 BUN 11 Creatinine 1.03 Est GFR ( Amer) > 60 Est GFR (Non-Af Amer) > 60 Glucose 66 L Calcium 8.1 L Serum HCG, Qual Urine Color STRAW Urine Appearance SLIGHTLY-CLOUDY Urine pH 6.0 Ur Specific [place] 1.006 Urine Protein 100 H Urine Glucose (UA) 50 H Urine Ketones NEGATIVE Urine Blood SMALL H Urine Nitrite NEGATIVE Ur Leukocyte Esterase NEGATIVE Urine WBC (Auto) 3 Urine RBC (Auto) 1 05/19/18 01:23 WBC RBC Hgb Hct MCV MCH MCHC RDW Plt Count Seg Neutrophils % Lymphocytes % Monocytes % Eosinophils % Basophils % Absolute Neutrophils Absolute Lymphocytes Absolute Monocytes Absolute Eosinophils Absolute Basophils Sodium Potassium Chloride Carbon Dioxide Anion Gap BUN Creatinine Est GFR ( Amer) Est GFR (Non-Af Amer) Glucose Calcium Serum HCG, Qual NEGATIVE Urine Color Urine Appearance Urine pH Ur Specific [place] Urine Protein Urine Glucose (UA) Urine Ketones Urine Blood Urine Nitrite Ur Leukocyte Esterase Urine WBC (Auto) Urine RBC (Auto) Assessment & Plan - Diagnosis (1) Opiate overdose Qualifiers: Encounter type: initial encounter Injury intent: accidental or unintentional Qualified Code(s): T40.601A - Poisoning by unspecified narcotics, accidental (unintentional), initial encounter Is this a current diagnosis for this admission?: Yes Plan: The patient will be observed off of the Narcan drip until 8 AM and if she remains stable without somnolence or change in mental status she should be ready for discharge from her observation status. (2) Polysubstance abuse Is this a current diagnosis for this admission?: Yes Plan: Patient is encouraged to discontinue use of her multiple substances of abuse. Patient is poorly receptive to this idea. (3) Bipolar disorder Qualifiers: Active/Remission status: currently active Current bipolar episode type: mixed Current episode severity: unspecified Qualified Code(s): F31.60 - Bipolar disorder, current episode mixed, unspecified Is this a current diagnosis for this admission?: Yes Plan: Patient is encouraged to resume her medications and therapy for her bipolar and other psychiatric illnesses. Unfortunately she seems to be in denial about her disease state and poorly receptive to trying to advance her therapy. (4) Alcohol intoxication Qualifiers: Complication of substance-induced condition: with delirium Qualified Code(s): F10.921 - Alcohol use, unspecified with intoxication delirium Is this a current diagnosis for this admission?: Yes Plan: Patient's alcohol intoxication may have been partially contributory to her overall encephalopathy. She is responding well at this point and should be ready for discharge by 8 AM if she remains stable. - Time Time Spent: 30 to 50 Minutes Critical Time spent with patient: Less than 15 minutes Anticipated discharge: Home - Inpatient Certification Based on my medical assessment, after consideration of the patient's comorbidities, presenting symptoms, or acuity I expect that the services needed warrant INPATIENT care.: No I certify that my determination is in accordance with my understanding of Medicare's requirements for reasonable and necessary INPATIENT services [42 CFR 412.3e].: No
--- NOTE | 2018-05-19 06:36 | EKG REPORT ---
SEVERITY:- ABNORMAL ECG - SINUS TACHYCARDIA BORDERLINE T ABNORMALITIES, INFERIOR LEADS PROLONGED QT INTERVAL : Confirmed by: Hank Richardson MD 19-May-2018 06:35:07
[2018-05-19] MEDS ORDERED: FAMOTIDINE 20 MG TABLET PO SCH (10:00)
[2018-05-19] MEDS ORDERED: DOCUSATE SODIUM 100 MG CAPSULE PO SCH (10:00)
[2018-05-19 10:30] VITALS: BP 97/58
--- NOTE | 2018-05-22 15:10 | PDOC DISCHARGE SUMMARY ---
General - Admit/Disc Date/PCP Admission Date/Primary Care Provider: 05/19/18 02:51 Discharge Date: 05/19/18 - Discharge Diagnosis (1) Opiate overdose Is this a current diagnosis for this admission?: Yes (2) Apnea Is this a current diagnosis for this admission?: Yes (3) Alcohol intoxication Is this a current diagnosis for this admission?: Yes - Additional Information Resuscitation Status: Full Code Discharge Activity: Activity As Tolerated Home Medications: Meloxicam [Mobic] 7.5 mg PO DAILY 05/19/18 History of Present Illness History of Present Illness: JYOTI BROWER is a 27 year old female who presented via EMS to the emergency room with an acute opioid overdose. The patient was unresponsive, severely hypoxic, severely hypoventilating, hypotensive and bradycardic upon her arrival to the emergency room. She was given IV Narcan a total of 6 mg in order to elicit improvement. She was subsequently started on a Narcan drip and became normally responsive. When she was taken off the Narcan drip on a test/trial basis she became poorly responsive and somnolent thus the Narcan infusion was resumed and arrangements were made for the patient to be admitted. To my questioning the patient admits that she has chronic pain in her ankle after surgery on March 26, 2018 and she is unable to get more Percocet for it until next month, so she uses/abuses whenever she can get. Late last night she snorted heroin &/or fentanyl, she also consumed a large amount of alcohol. She admits that she has used opiates and many other substances in this manner before but denies prior overdose symptoms. She is agreeable to remaining on the Narcan drip until a trial discontinuation can be arranged again at 6:00 AM with potential discharge if she has no somnolence or change in mental status by 8 AM. She is thus admitted to the hospitalist service for inpatient observation status of her opioid/polysubstance overdose. Hospital Course Hospital Course: 27 y.o. F with a PMH of HTN (unmedicated) presented to [facility] severely hypoxic, severely hypoventilating, hypotensive and bradycardic following an opiate overdose. She was treated with IV Narcan in the ED and subsequently placed on a Narcan gtt. In the very early hours of the morning, the narcan gtt was stopped and the patient quickly became drowsy and difficult to arouse so the Narcan gtt was re-started. She remained alert and oriented while on the Narcan gtt. It was turned off again at approximately 0630 and the patient remained awake and alert. She was monitored in the ED for several hours after the Narcan infusion was stopped. She was able to ambulate around the ED without much difficulty (some limping noted due to chronic ankle pain). The patient was counseled on the use of illicit drugs and their danger. At approximately 1100 the patient was discharged home. For further information regarding this patient's hospitalization, please refer to the EMR. Physical Exam Vital Signs: Temp Pulse Resp BP Pulse Ox 98.6 F 102 H 13 97/58 L 96 05/19/18 06:21 05/19/18 02:00 05/19/18 10:01 05/19/18 10:00 05/19/18 10:01 Results Laboratory Results: 05/19/18 01:23 05/19/18 01:23 Status: Imported from PACS Qualifiers - * PATIENT BEING DISCHARGED WITH ANY OF THE FOLLOWING DIAGNOSIS: No Plan Time Spent: Greater than 30 Minutes
== END 2018-05-19 10:56 | disposition home or self-care (01) ==
LOC: ER 23:09 → EH 05-19 02:51
PROVIDERS: ADMIT Emergency Medicine; ATTEND Emergency Medicine
DX: T40.4X1A Poisoning by other synthetic narcotics, accidental (unintentional), initial encounter (principal); T40.1X1A Poisoning by heroin, accidental (unintentional), initial encounter; R06.81 Apnea, not elsewhere classified; F10.921 Alcohol use, unspecified with intoxication delirium; R09.02 Hypoxemia; R06.89 Other abnormalities of breathing; I95.9 Hypotension, unspecified; R00.1 Bradycardia, unspecified; R40.0 Somnolence; F14.10 Cocaine abuse, uncomplicated; R00.0 Tachycardia, unspecified; G89.28 Other chronic postprocedural pain; M13.872 Other specified arthritis, left ankle and foot; R26.89 Other abnormalities of gait and mobility; F19.10 Other psychoactive substance abuse, uncomplicated; F31.60 Bipolar disorder, current episode mixed, unspecified; F41.9 Anxiety disorder, unspecified; Z79.1 Long term (current) use of non-steroidal anti-inflammatories (NSAID); Z98.890 Other specified postprocedural states; Z96.698 Presence of other orthopedic joint implants; Z82.49 Family history of ischemic heart disease and other diseases of the circulatory system
CPT/HCPCS: 93005; 96376; 99291; 96372; 96361; 96375; 96365; 96366; 36415; 82962; 80307 ×2; 84703; 85025; 80048; 81001; 93010; J2310 ×3; J3490; J2405; J7030; J7040 ×2; G0378

== ENCOUNTER 2018-11-08 17:55 | Emergency (ER) | payer SELFPAY ==
[2018-11-08 18:01] VITALS: BP 133/92
--- NOTE | 2018-11-08 18:23 | ER Document Report ---
ED Medical Screen (RME) - General Chief Complaint: Head Injury with LOC Stated Complaint: HEAD PAIN Time Seen by Provider: 11/08/18 18:12 Mode of Arrival: Ambulatory Information source: Patient Notes: Patient is a 27-year-old female presented to the emergency department with chief complaint of fall injury. Patient reports she fell down a flight of stairs today at home. She states she hit her head, she states that she thinks she lost consciousness. She is also complaining of left anterior and lateral rib pain. Patient appears to be under the influence of something. She does report she drank alcohol last night and took a Percocet last night. She denies any alcohol intake today. Patient declines C-spine precautions. Patient will be sent for CT of the head, neck and rib x-rays. Exam: Tenderness to palpation to anterior and lateral left ribs, lung sounds clear and equal bilaterally. I have greeted and performed a rapid initial assessment of this patient. A comprehensive ED assessment and evaluation of the patient, analysis of test results and completion of the medical decision making process will be conducted by additional ED providers. I have specifically instructed the patient or family members with the patient to immediately return to any nursing staff should anything change in the patient's condition or with their chief complaint. This medical record was dictated with voice recognizing software. There may be grammatical, syntax errors that are unintended. TRAVEL OUTSIDE OF THE [place] IN LAST 30 DAYS: No - Related Data Allergies/Adverse Reactions: latex Allergy (Mild, Verified 11/08/18 17:58) tramadol Allergy (Mild, Verified 11/08/18 17:58) hydrocodone bitartrate [From Vicodin] Adverse Reaction (Intermediate, Verified 11/08/18 17:58) Hives Past Medical History - Social History Frequency of alcohol use: Heavy Drug Abuse: None - Past Medical History Cardiac Medical History: Reports: Hx Hypertension - not medicated Denies: Hx Congestive Heart Failure, Hx Coronary Artery Disease, Hx DVT, Hx Heart Attack Pulmonary Medical History: Denies: Hx Asthma, Hx Bronchitis, Hx COPD, Hx Pneumonia, Hx Tuberculosis Neurological Medical History: Denies: Hx Seizures Endocrine Medical History: Denies: Hx Diabetes Mellitus Type 1, Hx Diabetes Mellitus Type 2, Hx Hyperthyroidism, Hx Hypothyroidism Renal/ Medical History: Denies: Hx End Stage Renal Disease, Hx Kidney Stones, Hx Peritoneal Dialysis GI Medical History: Denies: Hx Cirrhosis, Hx Crohn's Disease, Hx Gastroesophageal Reflux Disease, Hx Hepatitis, Hx Ulcer, Hx Ulcerative Colitis Musculoskeltal Medical History: Reports Hx Arthritis - 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, Denies Hx Fibromyalgia, Denies Hx Multiple Sclerosis Skin Medical History: Denies Hx Eczema, Denies Hx Psoriasis Psychiatric Medical History: Reports: Hx Anxiety, Hx Bipolar Disorder, Hx Depression, Hx Schizoaffective Disorder, Hx Schizophrenia - pt denied at this visit Infectious Medical History: Denies: Hx Hepatitis Past Surgical History: Reports: Hx Orthopedic Surgery - Left ankle open reduction and internal fixation repair March 26, 2018, Other - Ankle surgery - Immunizations Immunizations up to date: No Hx Diphtheria, Pertussis, Tetanus Vaccination: Yes - 06/24/11 History of Influenza Vaccine for 12/2016 - 05/2017 Season: No Physical Exam - Vital signs Vitals: Temp Pulse Resp BP Pulse Ox 98.3 F 107 H 12 133/92 H 97 11/08/18 18:00 11/08/18 18:00 11/08/18 18:00 11/08/18 18:00 11/08/18 18:00 Course - Vital Signs Vital signs: Temp Pulse Resp BP Pulse Ox 98.3 F 107 H 12 133/92 H 97 11/08/18 18:00 11/08/18 18:00 11/08/18 18:00 11/08/18 18:00 11/08/18 18:00
--- NOTE | 2018-11-08 18:48 | RADIOLOGY REPORT (SQ) ---
EXAM DESCRIPTION: RIBS LEFT W/PA CHEST COMPLETED DATE/TIME: 11/08/2018 6:39 pm REASON FOR STUDY: fall down stairs/L anterior rib pain COMPARISON: None. TECHNIQUE: Frontal view of the chest and additional views of the left ribs acquired. NUMBER OF VIEWS: Three view. LIMITATIONS: None. FINDINGS: FRONTAL CXR: No pneumothorax. No pleural effusion. No atelectasis or infiltrates. RIBS: No displaced rib fractures. No lytic or blastic bony lesions. OTHER: No other significant finding. IMPRESSION: NO PNEUMOTHORAX. NO DISPLACED RIB FRACTURES. COMMENT: SITE OF TRAUMA/COMPLAINT MARKED/STAMP COMPLETED: YES. TECHNICAL DOCUMENTATION: JOB ID: [id number] [email or web address]- All Rights Reserved Reading location - IP/workstation name: [email or web address]
--- NOTE | 2018-11-08 18:54 | RADIOLOGY REPORT (SQ) ---
EXAM DESCRIPTION: CT HEAD WITHOUT COMPLETED DATE/TIME: 11/08/2018 6:44 pm REASON FOR STUDY: fall down stairs/possible loss of consciousness COMPARISON: None. TECHNIQUE: Axial images acquired through the brain without intravenous contrast. Images reviewed wi th bone, brain and subdural windows. Additional sagittal and coronal reconstructions were generated. Images stored on PACS. All CT scanners at this facility use dose modulation, iterative reconstruction, and/or weight based d osing when appropriate to reduce radiation dose to as low as reasonably achievable (ALARA). [facility]: Dose Right [facility]: CareDose [facility]: Dose Right [facility]: Teradose 4D [facility]: Abundance Generation RADIATION DOSE: CT Rad equipment meets quality standard of care and radiation dose reduction techniq ues were employed. CTDIvol: 53.2 mGy. DLP: 964 mGy-cm. mGy. LIMITATIONS: None. FINDINGS: VENTRICLES: Normal size and contour. CEREBRUM: No masses. No hemorrhage. No midline shift. No evidence for acute infarction. Normal gra y/white matter differentiation. No areas of low density in the white matter. CEREBELLUM: No masses. No hemorrhage. No alteration of density. No evidence for acute infarction. EXTRAAXIAL SPACES: No fluid collections. No masses. ORBITS AND GLOBE: No intra- or extraconal masses. Normal contour of globe without masses. CALVARIUM: No fracture. PARANASAL SINUSES: No fluid or mucosal thickening. SOFT TISSUES: No mass or hematoma. OTHER: No other significant finding. IMPRESSION: NORMAL BRAIN CT WITHOUT CONTRAST. EVIDENCE OF ACUTE STROKE: NO. COMMENT: Quality ID # [id number]: Final reports with documentation of one or more dose reduction techniques (e.g., Automated exposure control, adjustment of the mA and/or kV according to patient size, use of iterative reconstruction technique) TECHNICAL DOCUMENTATION: JOB ID: [id number] [employer]- All Rights Reserved Reading location - IP/workstation name: [email or web address]
--- NOTE | 2018-11-08 18:55 | RADIOLOGY REPORT (SQ) ---
EXAM DESCRIPTION: CT CERVICAL SPINE WITHOUT COMPLETED DATE/TIME: 11/08/2018 6:44 pm REASON FOR STUDY: fall down stairs/possible loss of consciousness COMPARISON: None. TECHNIQUE: Axial images acquired through the cervical spine without intravenous contrast. Images re viewed with lung, soft tissue and bone windows. Reconstructed coronal and sagittal MPR images review ed. Images stored on PACS. All CT scanners at this facility use dose modulation, iterative reconstruction, and/or weight based d osing when appropriate to reduce radiation dose to as low as reasonably achievable (ALARA). [facility]: Dose Right [facility]: CareDose [facility]: Dose Right [facility]: Teradose 4D [facility]: Smart [employer] RADIATION DOSE: CT Rad equipment meets quality standard of care and radiation dose reduction techniq ues were employed. CTDIvol: 16.3 mGy. DLP: 369 mGy-cm. mGy. LIMITATIONS: None. FINDINGS: ALIGNMENT: Reversal of cervical lordotic curve. MINERALIZATION: Normal. VERTEBRAL BODIES: No fractures or dislocation. DISCS: No significant disc disease. FACETS, LATERAL MASSES, POSTERIOR ELEMENTS: No fractures. No dislocation. No acute findings. HARDWARE: None in the spine. VISUALIZED RIBS: No fractures. LUNG APICES AND SOFT TISSUES: No significant or acute findings. OTHER: No other significant finding. IMPRESSION: No acute fracture-dislocation. TECHNICAL DOCUMENTATION: JOB ID: [id number] Quality ID # [id number]: Final reports with documentation of one or more dose reduction techniques (e.g., Au tomated exposure control, adjustment of the mA and/or kV according to patient size, use of iterative reconstruction technique) 2010 [employer]- All Rights Reserved Reading location - IP/workstation name: [email or web address]
[2018-11-08] MEDS ORDERED: IBUPROFEN 600 MG TABLET PO ONE (19:07)
[2018-11-08] MEDS ORDERED: DIPHENHYDRAMINE HCL 50 MG CAPSULE PO ONE (19:07)
[2018-11-08] MEDS ORDERED: METOCLOPRAMIDE HCL 10 MG TABLET PO ONE (19:07)
--- NOTE | 2018-11-08 19:18 | ER Document Report ---
ED General - General Chief Complaint: Head Injury with LOC Stated Complaint: HEAD PAIN Time Seen by Provider: 11/08/18 18:12 Mode of Arrival: Ambulatory Information source: Patient, [facility] Records Notes: 27-year-old female with a history of hypertension, schizophrenia, drug abuse, remote history of fentanyl overdose presents with complaint of head, neck and rib pain. Patient states that just prior to arrival she had a mechanical fall down 12 stairs. She believes that she struck her head and lost consciousness. She denies any preceding chest pain, shortness of breath, dizziness. She states that she has chronic numbness in her left foot which she believes caused her to fall. Patient currently complaining of headache, nausea. TRAVEL OUTSIDE OF THE [place] IN LAST 30 DAYS: No - HPI Onset: Just prior to arrival Onset/Duration: Sudden Quality of pain: Achy, Throbbing Severity: Moderate Pain Level: 2 Associated symptoms: Body/muscle aches, Headache, Nausea, Vomiting. denies: Chest pain, Productive cough, Hurts to breath, Shortness of breath, Sweating, Weakness Exacerbated by: Movement Relieved by: Standing Similar symptoms previously: Yes Recently seen / treated by doctor: No - Related Data Allergies/Adverse Reactions: latex Allergy (Mild, Verified 11/08/18 17:58) tramadol Allergy (Mild, Verified 11/08/18 17:58) hydrocodone bitartrate [From Vicodin] Adverse Reaction (Intermediate, Verified 11/08/18 17:58) Hives Past Medical History - General Information source: Patient - Social History Smoking Status: Current Every Day Smoker Cigarette use (# per day): Yes - 10 Smoking Education Provided: Yes - Smoking cessation counseling was provided for 4 minutes at the bedside Frequency of alcohol use: Heavy Drug Abuse: None Lives with: Family Family History: Hypertension, Other - Mental illnesses Patient has suicidal ideation: No Patient has homicidal ideation: No - Past Medical History Cardiac Medical History: Reports: Hx Hypertension - not medicated Denies: Hx Congestive Heart Failure, Hx Coronary Artery Disease, Hx DVT, Hx Heart Attack Pulmonary Medical History: Denies: Hx Asthma, Hx Bronchitis, Hx COPD, Hx Pneumonia, Hx Tuberculosis Neurological Medical History: Denies: Hx Seizures Endocrine Medical History: Denies: Hx Diabetes Mellitus Type 1, Hx Diabetes Mellitus Type 2, Hx Hyperthyroidism, Hx Hypothyroidism Renal/ Medical History: Denies: Hx End Stage Renal Disease, Hx Kidney Stones, Hx Peritoneal Dialysis GI Medical History: Denies: Hx Cirrhosis, Hx Crohn's Disease, Hx Gastroesophageal Reflux Disease, Hx Hepatitis, Hx Ulcer, Hx Ulcerative Colitis Musculoskeletal Medical History: Reports Hx Arthritis - 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, Denies Hx Fibromyalgia, Denies Hx Multiple Sclerosis Skin Medical History: Denies Hx Eczema, Denies Hx Psoriasis Psychiatric Medical History: Reports: Hx Anxiety, Hx Bipolar Disorder, Hx Depression, Hx Schizoaffective Disorder, Hx Schizophrenia - pt denied at this visit Infectious Medical History: Denies: Hx Hepatitis Past Surgical History: Reports: Hx Orthopedic Surgery - Left ankle open reduction and internal fixation repair March 26, 2018, Other - Ankle surgery - Immunizations Immunizations up to date: No Hx Diphtheria, Pertussis, Tetanus Vaccination: Yes - 06/24/11 Review of Systems - Review of Systems Notes: REVIEW OF SYSTEMS: CONSTITUTIONAL : Denies fever, chills, or sweats. Denies recent illness. Denies weight loss, recent hospitalizations. EENT: Denies visual changes, eye pain. Denies sore throat, oral lesions, difficulty swallowing. CARDIOVASCULAR: + Chest wall pain. Denies palpitations. Denies lower extremity edema. RESPIRATORY: Denies cough. Denies shortness of breath, wheezing. GASTROINTESTINAL: Denies abdominal pain or distention. Denies diarrhea. Denies blood in vomitus, stools, or per rectum. Denies black, tarry stools. Denies constipation. GENITOURINARY: Denies difficulty urinating, painful urination, frequency, blood in urine, or vaginal discharge. MUSCULOSKELETAL: + back or neck pain or stiffness. Denies joint pain or swelling. SKIN: Denies rash, lesions or sores. HEMATOLOGIC : Denies easy bruising or bleeding. LYMPHATIC: Denies swollen glands. NEUROLOGICAL: Denies confusion or altered mental status. Denies loss of consciousness. Denies dizziness or lightheadedness. Denies weakness or paralysis. Denies problems difficulty with ambulation, slurred speech. Denies sensory loss, numbness, or tingling. Denies seizures. PSYCHIATRIC: Denies anxiety or stress. Denies depression, suicidal ideation, or homicidal ideation. Denies visual or auditory hallucinations. Physical Exam - Vital signs Vitals: Temp Pulse Resp BP Pulse Ox 98.3 F 107 H 12 133/92 H 97 11/08/18 18:00 08/17/19 18:00 11/08/18 18:00 11/08/18 18:00 11/08/18 18:00 - Notes Notes: PHYSICAL EXAMINATION: GENERAL: Well-appearing, well-nourished and in no acute distress. GCS 15 HEAD: Atraumatic, normocephalic. EYES: Pupils equal round and reactive to light, extraocular movements intact, sclera anicteric, conjunctiva are normal. ENT: Nares patent, oropharynx clear without exudates. Moist mucous membranes. No hemanotympanum . No blood in nares. No dental fracture NECK: Normal range of motion, supple without lymphadenopathy. Trachea midline. No midline tenderness, step-off, deformity LUNGS: Breath sounds clear to auscultation bilaterally and equal. No wheezes rales or rhonchi. Left chest wall tenderness without flail segment, ecchymosis, crepitus. HEART: Regular rate and rhythm without murmurs. Pulses intact all throughout. ABDOMEN: Soft, nontender, nondistended abdomen. No guarding, no rebound. No masses appreciated. Musculoskeletal: Normal range of motion, no pitting or edema. No cyanosis. Hip non tender, less stable. No midline tenderness of the lumbar spine NEUROLOGICAL: Cranial nerves grossly intact. Normal speech, normal gait. Normal sensory, motor, and reflex exams. PSYCH: Normal mood, normal affect. SKIN: 2 cm superficial abrasion to the left bicep. Course - Re-evaluation Re-evalutation: 11/08/18 19:[address] 11/08/18 18:17 IMPRESSION: No acute fracture-dislocation. Head CT 11/08/18 18:17 IMPRESSION: NORMAL BRAIN CT WITHOUT CONTRAST. EVIDENCE OF ACUTE STROKE: NO. Ribs w/Chest X-Ray 11/08/18 18:17 IMPRESSION: NO PNEUMOTHORAX. NO DISPLACED RIB FRACTURES. Temp Pulse Resp BP Pulse Ox 98.3 F 107 H 12 133/92 H 97 11/08/18 18:00 11/08/18 18:00 11/08/18 18:00 11/08/18 18:00 11/08/18 18:00 - Vital Signs Vital signs: Temp Pulse Resp BP Pulse Ox 98.1 F 95 16 133/92 H 95 11/08/18 20:02 11/08/18 20:02 11/08/18 20:02 11/08/18 18:00 11/08/18 20:02 11/08/18 19:16 Presentation of a well appearing patient in no acute distress, vitals within normal limits after a mechanical fall. Patient denies a syncopal episode as the cause for today's fall. No focal neurologic deficits on exam, no evidence of basilar skull fracture on exam without evidence of hemotympanum, raccoon eyes, or periauricular hematoma. No papilledema. Patient is not on anticoagulation. GCS is 15. Positive loss of consciousness. One episode of vomiting. Because of patient's loss of consciousness, complaint of vomiting CT of the head was obtained and within normal limits. CT of the cervical spine was also obtained and showed no acute fracture or dislocation. X-rays of the ribs showed no pneumothorax or rib fracture. Patient has no focal deformities or limited range of motion in any joint space. Chest and abdominal exam are benign without any focal tenderness, shortness of breath, or bruising abdominal wall. Patient has left flank tenderness. There is no obvious findings on trauma exam today. At this time will discharge with return precautions and follow-up recommendations. Verbal discharge instructions given a the bedside and opportunity for questions given. Medication warnings reviewed. Patient is in agreement with this plan and has verbalized understanding of return precautions and the need for primary care follow-up in the next 24-72 hours. Patient was evaluated and treated as appropriate for the patient's presenting symptoms and complaint, with consideration of any critical or life threatening conditions that may be associated with their obtained history and exam as noted above. All results were discussed with patient. Patient provided the opportunity to ask questions, and express concerns. Patient was educated on treatments based on their presumed diagnosis as noted above. At this time we will discharge the patient with return precautions and follow-up recommendations. Verbal discharge instructions given a the bedside. Medication warnings reviewed. Patient is in agreement with this plan and has verbalized understanding of return precautions. After careful consideration I feel that that patient can be safely discharged from the emergency department, they were advised to followup with a primary care physician in 2-3 days. Dictation on this chart was performed using voice recognition software and may result in unintended grammatical, spelling, syntax or errors. - Diagnostic Test Radiology reviewed: Image reviewed, Reports reviewed Discharge - Discharge Clinical Impression: Rib contusion Qualifiers: Encounter type: initial encounter Laterality: left Qualified Code(s): S20.212A - Contusion of left front wall of thorax, initial encounter Closed head injury Qualifiers: Encounter type: initial encounter Qualified Code(s): S09.90XA - Unspecified injury of head, initial encounter Cervical strain Qualifiers: Encounter type: initial encounter Qualified Code(s): S16.1XXA - Strain of muscle, fascia and tendon at neck level, initial encounter Headache Qualifiers: Headache type: unspecified Headache chronicity pattern: acute headache Intractability: not intractable Qualified Code(s): R51 - Headache Condition: Good Disposition: HOME, SELF-CARE Instructions: Contusion ([facility]), Head Injury Precautions ([facility]), Neck Injury (Cervical Strain) ([facility]) Additional Instructions: You have been seen in the Emergency Department (ED) today following a fall. Your workup today did not reveal any injuries that require you to stay in the hospital. You can expect, though, to be stiff and sore for the next several days. You can take Tylenol 1000 mg every 6 hours as needed for pain. You can apply a hot pack or electric heating pad to the sore areas. You can also use topical "Aspercreme with lidocaine" to sore areas as needed. Please follow up with your primary care doctor as soon as possible regarding today's ED visit and your recent fall. Call your doctor or return to the ED if you develop a sudden or severe headache, confusion, slurred speech, facial droop, weakness or numbness in any arm or leg, extreme fatigue, vomiting more than two times, severe abdominal pain, or other symptoms that concern you. You have likely sustained a contusion (bruise) to your head. If you had a CT scan done, it did not show any evidence of serious injury or bleeding. Symptoms to expect from a concussion include nausea, mild to moderate headache, difficulty concentrating or sleeping, and mild lightheadedness. These symptoms should improve over the next few days to weeks. Return to the emergency department or follow-up with your primary care doctor if your symptoms are not improving over this time. Signs of a more serious head injury include vomiting, severe headache, excessive sleepiness or confusion, and weakness or numbness in your face, arms or legs. Return immediately to the Emergency Department if you experience any of these more concerning symptoms. Rest, avoid strenuous physical or mental activity, and avoid activities that could potentially result in another head injury until all your symptoms from this head injury are completely resolved for at least 2-3 weeks. If you participate in sports, get cleared by your doctor or operations trainer before returning to play. You may take ibuprofen or acetaminophen over the counter according to label instructions for mild headache or scalp soreness. Prescriptions: Lidocaine [Lidoderm 5% (700 mg) Transdermal Patch] 1 patch TP DAILY #7 adh..patch Naproxen [Naprosyn] 500 mg PO Q12H 7 Days #14 tablet Forms: Elevated Blood Pressure
== END 2018-11-08 20:02 | disposition home or self-care (01) ==
LOC: ER 17:55
DX: S06.9X9A Unspecified intracranial injury with loss of consciousness of unspecified duration, initial encounter (principal); S16.1XXA Strain of muscle, fascia and tendon at neck level, initial encounter; S20.212A Contusion of left front wall of thorax, initial encounter; S40.812A Abrasion of left upper arm, initial encounter; R51 Headache; M54.2 Cervicalgia; R07.89 Other chest pain; R10.819 Abdominal tenderness, unspecified site; M79.10 Myalgia, unspecified site; W10.9XXA Fall (on) (from) unspecified stairs and steps, initial encounter; R20.0 Anesthesia of skin; R11.2 Nausea with vomiting, unspecified; I10 Essential (primary) hypertension; F17.210 Nicotine dependence, cigarettes, uncomplicated; Z71.6 Tobacco abuse counseling; Z91.040 Latex allergy status; Z88.5 Allergy status to narcotic agent
CPT/HCPCS: 70450; 72125; 99284; 99406

== ENCOUNTER 2019-01-05 11:34 | Observation (INO) | payer SELFPAY ==
[2019-01-05] MEDS ORDERED: ACETAMINOPHEN 325 MG TABLET PO ONE ×2 (12:43→15:30)
[2019-01-05] MEDS ORDERED: KETOROLAC TROMETHAMINE 60 MG/2 ML SDV IM ONE ×2 (12:44→16:00)
--- NOTE | 2019-01-05 12:47 | ER Document Report ---
ED Medical Screen (RME) - General Chief Complaint: Abdominal Pain Stated Complaint: ABDOMINAL PAIN Time Seen by Provider: 01/05/19 12:36 Notes: 28-year-old female presents the emergency department with chief complaint generalized abdominal pain since last night. Patient states that she thinks it is her appendix because it "acted up on me before". Patient denies fevers or chills, complains of nausea and vomiting, complains of generalized abdominal pain that radiates up to her right shoulder, patient cannot qualify any of her pain symptoms to include a specific location. Last bowel movement yesterday. No complaints. Exam: Patient sitting in wheelchair distress overall well-appearing. Lungs are clear to auscultation in all an, abdominal exam limited in triage but was generally soft I have greeted and performed a rapid initial assessment of this patient. A comprehensive ED assessment and evaluation of the patient, analysis of test results and completion of medical decision making process will be conducted by an additional ED providers. TRAVEL OUTSIDE OF THE [place] IN LAST 30 DAYS: No - Related Data Allergies/Adverse Reactions: latex Allergy (Mild, Verified 11/08/18 17:58) tramadol Allergy (Mild, Verified 11/08/18 17:58) hydrocodone bitartrate [From Vicodin] Adverse Reaction (Intermediate, Verified 11/08/18 17:58) Hives Past Medical History - Past Medical History Cardiac Medical History: Reports: Hx Hypertension - not medicated Denies: Hx Congestive Heart Failure, Hx Coronary Artery Disease, Hx DVT, Hx Heart Attack Pulmonary Medical History: Denies: Hx Asthma, Hx Bronchitis, Hx COPD, Hx Pneumonia, Hx Tuberculosis Neurological Medical History: Denies: Hx Seizures, Hx Parkinson's Disease Endocrine Medical History: Denies: Hx Diabetes Mellitus Type 1, Hx Diabetes Mellitus Type 2, Hx Hyperthyroidism, Hx Hypothyroidism Renal/ Medical History: Denies: Hx End Stage Renal Disease, Hx Kidney Stones, Hx Peritoneal Dialysis GI Medical History: Denies: Hx Cirrhosis, Hx Crohn's Disease, Hx Gastroesophageal Reflux Disease, Hx Hepatitis, Hx Ulcer, Hx Ulcerative Colitis Musculoskeltal Medical History: Reports Hx Arthritis - 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, Denies Hx Fibromyalgia, Denies Hx Multiple Sclerosis Skin Medical History: Denies Hx Eczema, Denies Hx Psoriasis Psychiatric Medical History: Reports: Hx Anxiety, Hx Bipolar Disorder, Hx Depression, Hx Schizoaffective Disorder, Hx Schizophrenia - pt denied at this visit Infectious Medical History: Denies: Hx Hepatitis Past Surgical History: Reports: Hx Orthopedic Surgery - Left ankle open reduction and internal fixation repair March 26, 2018, Other - Ankle surgery - Immunizations Immunizations up to date: No Hx Diphtheria, Pertussis, Tetanus Vaccination: Yes - 06/24/11 Physical Exam - Vital signs Vitals: Temp Pulse Resp BP Pulse Ox 99.4 F 97 20 123/67 99 01/05/19 12:04 01/05/19 12:04 01/05/19 12:04 01/05/19 12:04 01/05/19 12:04 Course - Vital Signs Vital signs: Temp Pulse Resp BP Pulse Ox 99.4 F 97 20 123/67 99 01/05/19 12:04 01/05/19 12:04 01/05/19 12:04 01/05/19 12:04 01/05/19 12:04
[2019-01-05 13:43] LABS: APPEARANCE,URINE SLIGHTLY-CLOUDY; BILIRUBIN,URINE NEGATIVE (NEGATIVE); COLOR,URINE AMBER; GLUCOSE, URINE NEGATIVE (NEGATIVE); KETONES,URINE 20 mg/dL (NEGATIVE); LEUKOCYTE ESTERASE,URINE NEGATIVE (NEGATIVE); NITRITE,URINE NEGATIVE (NEGATIVE); PROTEIN,URINE 30 mg/dL (NEGATIVE); URINE SPECIFIC GRAVITY 1.023; UROBILINOGEN,URINE NEGATIVE mg/dL (<2.0)
--- NOTE | 2019-01-05 15:18 | ER Document Report ---
ED GI/ - General Chief Complaint: Abdominal Pain Stated Complaint: ABDOMINAL PAIN Time Seen by Provider: 01/05/19 12:36 TRAVEL OUTSIDE OF THE [place] IN LAST 30 DAYS: No - HPI Notes: 01/05/19 16:16 28-year-old female to the emergency department with complaints of right lower quadrant abdominal pain that has been getting worse since last night. States that she felt normal and then all of a sudden last night she started to feel poorly She states that she has quite a bit of pain in her right lower side and radiates across her pelvis. She denies any vaginal discharge, vaginal bleeding. She states that she just got off of her. And has had some mild spotting. She denies possibility of . She has been 4 times and has 3 living children. She does admit to chills and subjective fevers. She states that she has been vomiting. She has not eaten since yesterday. She states that the pain radiates through to her back. She admits that she has had a history of kidney stones in the past and this does feel like something similar. She still has an appendix. She has not tried any medicine at home today. 01/05/19 18:54 Interval history after having Dr. Fischer my ER attending and Dr. Ng surgeon consult on patient. She is states that on Saturday morning at approximately 3 AM she ate a "bloody steak. She states that on the same day on Saturday at 10:30 PM is when she began to get sick. She does admit to diarrhea as well. She states her last episode of diarrhea that at 11 AM today. She states that she has not had any vaginal discharge and that she has one current partnerher galvan. She states that they did break up a little bit ago and she was with someone else wali aristeo. She has a history of chlamydia as a teenager but has never had it since. She has never had pelvic inflammatory disease. - Related Data Allergies/Adverse Reactions: latex Allergy (Mild, Verified 11/08/18 17:58) tramadol Allergy (Mild, Verified 11/08/18 17:58) hydrocodone bitartrate [From Vicodin] Adverse Reaction (Intermediate, Verified 11/08/18 17:58) Hives Past Medical History - General Information source: Patient - Social History Smoking Status: Current Every Day Smoker Frequency of alcohol use: None Drug Abuse: None Family History: Hypertension, Other - Mental illnesses Patient has suicidal ideation: No Patient has homicidal ideation: No - Past Medical History Cardiac Medical History: Reports: Hx Hypertension - not medicated Denies: Hx Congestive Heart Failure, Hx Coronary Artery Disease, Hx DVT, Hx Heart Attack Pulmonary Medical History: Denies: Hx Asthma, Hx Bronchitis, Hx COPD, Hx Pneumonia, Hx Tuberculosis Neurological Medical History: Denies: Hx Seizures, Hx Parkinson's Disease Endocrine Medical History: Denies: Hx Diabetes Mellitus Type 1, Hx Diabetes Mellitus Type 2, Hx Hyperthyroidism, Hx Hypothyroidism Renal/ Medical History: Denies: Hx End Stage Renal Disease, Hx Kidney Stones, Hx Peritoneal Dialysis GI Medical History: Denies: Hx Cirrhosis, Hx Crohn's Disease, Hx Gastroesophageal Reflux Disease, Hx Hepatitis, Hx Ulcer, Hx Ulcerative Colitis Musculoskeletal Medical History: Reports Hx Arthritis - 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, Denies Hx Fibromyalgia, Denies Hx Multiple Sclerosis Skin Medical History: Denies Hx Eczema, Denies Hx Psoriasis Psychiatric Medical History: Reports: Hx Anxiety, Hx Bipolar Disorder, Hx Depression, Hx Schizoaffective Disorder, Hx Schizophrenia - pt denied at this visit Infectious Medical History: Denies: Hx Hepatitis Past Surgical History: Reports: Hx Orthopedic Surgery - Left ankle open reduction and internal fixation repair March 26, 2018, Other - Ankle surgery - Immunizations Immunizations up to date: No Hx Diphtheria, Pertussis, Tetanus Vaccination: Yes - 06/24/11 Review of Systems - Review of Systems Constitutional: Chills, Fever EENT: No symptoms reported Cardiovascular: denies: Chest pain, Palpitations, Heart racing, Orthopnea, Dyspnea, Dizziness, Lightheaded Respiratory: denies: Cough, Short of breath Gastrointestinal: Abdominal pain, Diarrhea, Nausea, Vomiting Genitourinary: No symptoms reported. denies: Frequency, Flank pain, Hematuria, Incontinence Female Genitourinary: denies: Vaginal discharge, Vaginal bleeding Musculoskeletal: No symptoms reported Skin: No symptoms reported Neurological/Psychological: No symptoms reported -: Yes All other systems reviewed and negative Physical Exam - Vital signs Vitals: Temp Pulse Resp BP Pulse Ox 99.4 F 97 20 123/67 99 01/05/19 12:04 01/05/19 12:04 01/05/19 12:04 01/05/19 12:04 01/05/19 12:04 Interpretation: Normal - General General appearance: Appears well, Alert - HEENT Head: Normocephalic, Atraumatic Eyes: Normal Pupils: PERRL - Respiratory Respiratory status: No respiratory distress Chest status: Nontender. No: Pain on movement, Pain with cough, Pain with deep breathing Breath sounds: Normal. No: Productive cough, Rales, Rhonchi, Stridor, Wheezing Chest palpation: Normal - Cardiovascular Rhythm: Regular Heart sounds: Normal auscultation Murmur: No - Abdominal Inspection: Normal Distension: No distension Bowel sounds: Normal Tenderness: Tender - there is TTP over the RUQ, epigastrium and to the RLQ. patient is guarding., Guarding Organomegaly: No organomegaly - Back Back: Normal, Nontender. No: CVA tenderness - Extremities General upper extremity: Normal inspection, Nontender, Normal color, Normal ROM, Normal temperature General lower extremity: Normal inspection, Nontender, Normal color, Normal ROM, Normal temperature, Normal weight bearing. No: Cedric's sign - Neurological Neuro grossly intact: Yes Cognition: Normal Orientation: AAOx4 Hannibal Coma Scale Eye Opening: Spontaneous [place] Coma Scale Verbal: Oriented [place] Coma Scale Motor: Obeys Commands Rebecca Coma Scale Total: 15 Speech: Normal Cranial nerves: Normal Cerebellar coordination: Normal Motor strength normal: LUE, RUE, LLE, RLE Additional motor exam normals: Equal chiller hand. No: Pronator drift Sensory: Normal - Psychological Associated symptoms: Normal affect, Normal mood - Skin Skin Temperature: Warm Skin Moisture: Dry Skin Color: Normal Course - Re-evaluation Re-evalutation: 01/05/[address] reading where appendix is not visualized. She does have some bowel wall thickening in her jejunum. There is no small bowel obstruction. No evidence for abscess. Did speak with Dr. Fischer, ER Attending, about the patient and asked her to examine the patient as well. She agrees that the patient is very tender in the right lower, right upper quadrants and across the epigastrium. She agrees that the patient is guarding. She suggests that I involve surgery. Spoke with Dr. Ng, general surgeon on-call. He will come down and see the patient. Dr. Ng, in the department, has evaluated the patient. He is currently reviewing the CT results. He would like for me to do a pelvic exam on the patient. I have obtained sexual history for him as well. And will obtain pelvic exam with swabs. Dr. Ng will round back with me after this procedure. Spoke with Dr. Ng further. He does agree that the patient does have a pair of very tender abdomen states that this could be something as simple as the jejunitis and colitis from rare steak that the patient later gives in history. He does not think that she has a surgical abdomen tonight but he does think it is prudent to admit her to medicine for observation. He states he will be happy to consult and potentially if needed scope the patient for a better look. Updated Dr. Fischer, ER attending, about the patient. Plan will be to consult medicine and discuss. We will go ahead and start Zosyn on the patient. I have also ordered blood cultures. Her pelvic exam was not particularly tender. I did obtain gonorrhea and chlamydia swabs as well as a wet mount. Also asked nursing staff to obtain stool cultures if possible. Rounded on patient and d iscussed this plan with her. She agrees. She states that she still in quite a bit of pain and uncomfortable. She continues to have diffuse tenderness to palpation to the abdomen with guarding more prominent in the right upper quadrant and right lower. 01/05/19 19:[address] Fajardo, hospitalist about the patient. Discussed patient's presentation as well as her CT and leukocytosis. Discussed conversation with Dr. Ng and recommendation for medicine to admit patient. Emphasized that Dr. Ng will follow along on her case but does not think that she is surgical currently. Dr. Fajardo states he would like to review the patient further and will call me back about her disposition. 01/05/19 19:41 Dr. Fajardo is in the emergency department. He and Dr. Ng as well as myself discussed the patient briefly. Dr. Fajardo is can go and see the patient. He will come back and talk to me after. 01/05/19 20:02 Patient accepted to the medical service for admission. - Vital Signs Vital signs: Temp Pulse Resp BP Pulse Ox 98.7 F 71 20 113/74 99 10 19:53 10 19:53 10 19:53 10 19:53 01/05/19 19:53 - Laboratory Result Diagrams: 01/05/19 15:27 01/05/19 15:27 Laboratory results interpreted by me: 01/05/19 01/05/19 01/05/19 13:05 15:27 15:27 WBC 15.4 H Hgb 9.7 L Hct 30.7 L MCV 66 L MCH 21.0 L MCHC 31.7 L RDW 20.5 H Lymph % (Auto) 5.9 L Absolute Neuts (auto) 14.0 H Seg Neutrophils % 90.9 H Sodium 133.9 L Chloride 96 L Glucose 119 H Lipase 19.2 L Urine Protein 30 H Urine Ketones 20 H Urine Blood MODERATE H - Diagnostic Test Radiology reviewed: Image reviewed, Reports reviewed Discharge - Discharge Clinical Impression: Abdominal pain, Leukocytosis, Vomiting Condition: Stable Disposition: ADMITTED INPATIENT Unit Admitted: Medical Floor
[2019-01-05] MEDS ORDERED: FENTANYL CITRATE INJ/PF 100 MCG/2 ML AMPUL IV ONE ×2 (15:26→17:07)
[2019-01-05] MEDS ORDERED: ONDANSETRON HCL INJ/PF 4 MG/2 ML SDV IV ONE (15:26)
[2019-01-05 15:40] LABS: ABSOLUTE LYMPHOCYTES (AUTO) 0.9 10^3/uL (0.5-4.7); ABSOLUTE MONOCYTES (AUTO) 0.5 10^3/uL (0.1-1.4); BASOPHILS % (AUTO) 0.2 % (0-2); HEMATOCRIT 30.7 % (36.0-47.0); HEMOGLOBIN 9.7 g/dL (12.0-15.5); LYMPHOCYTES % (AUTO) 5.9 % (13-45); MEAN CORPUSCULAR HGB CONC 31.7 g/dL (32.0-36.0); MEAN CORPUSCULAR VOLUME 66 fl (80-97); PLATELET COUNT 271 10^3/uL (150-450); RED BLOOD COUNT 4.65 10^6/uL (3.72-5.28); RED CELL DISTRIBUTION WIDTH 20.5 % (11.5-14.0); SEGMENTED NEUTROPHILS % (AUTO) 90.9 % (42-78); TOTAL CELLS COUNTED % (AUTO) 100 %; WHITE BLOOD COUNT 15.4 10^3/uL (4.0-10.5)
[2019-01-05 15:59] LABS: ALBUMIN 4.6 g/dL (3.5-5.0); ALKALINE PHOSPHATASE 70 U/L (38-126); ANION GAP 10 (5-19); ASPARTATE AMINO TRANSFERASE 29 U/L (14-36); BILIRUBIN,DIRECT 0.1 mg/dL (0.0-0.4); BILIRUBIN,TOTAL 0.9 mg/dL (0.2-1.3); BLOOD UREA NITROGEN 8 mg/dL (7-20); CALCIUM 9.7 mg/dL (8.4-10.2); CARBON DIOXIDE 28 mmol/L (22-30); CHLORIDE 96 mmol/L (98-107); GLUCOSE 119 mg/dL (75-110); POTASSIUM 4.2 mmol/L (3.6-5.0); TOTAL PROTEIN 8.2 g/dL (6.3-8.2)
--- NOTE | 2019-01-05 16:32 | RADIOLOGY REPORT (SQ) ---
EXAM DESCRIPTION: CT ABD/PELVIS WITH IV ONLY COMPLETED DATE/TIME: 01/05/2019 4:12 pm REASON FOR STUDY: generalized acute abd pain COMPARISON: None. TECHNIQUE: CT scan of the abdomen and pelvis performed using helical scanning technique with dynamic intravenous contrast injection. No oral contrast. Images reviewed with lung, soft tissue, and bone windows. Reconstructed coronal and sagittal MPR images reviewed. Delayed images for evaluation of the urinary system also acquired. All images stored on PACS. All CT scanners at this facility use dose modulation, iterative reconstruction, and/or weight based d osing when appropriate to reduce radiation dose to as low as reasonably achievable (ALARA). [facility]: Dose Right [facility]: CareDose [facility]: Dose Right [facility]: Teradose 4D [facility]: Slidebean CONTRAST TYPE AND DOSE: contrast/concentration: Isovue 350.00 mg/ml; Total Contrast Delivered: 69.0 ml; Total Saline Delivered: 65.0 ml RENAL FUNCTION: None required. The patient is less than 50 years old. RADIATION DOSE: CT Rad equipment meets quality standard of care and radiation dose reduction techniq ues were employed. CTDIvol: 5.0 - 5.5 mGy. DLP: 556 mGy-cm.. LIMITATIONS: None. FINDINGS: LOWER CHEST: No significant findings. No nodules or infiltrates. LIVER: Normal size. No masses. No dilated ducts. SPLEEN: Normal size. No focal lesions. PANCREAS: No masses. No significant calcifications. No adjacent inflammation or peripancreatic fluid collections. Pancreatic duct not dilated. GALLBLADDER: No identified stones by CT criteria. No inflammatory changes to suggest cholecystitis. ADRENAL GLANDS: No significant masses or asymmetry. RIGHT KIDNEY AND URETER: No solid masses. No significant calcifications. No hydronephrosis or hyd roureter. LEFT KIDNEY AND URETER: No solid masses. No significant calcifications. No hydronephrosis or hydr oureter. AORTA AND VESSELS: No aneurysm. No dissection. Renal arteries, SMA, celiac without stenosis. RETROPERITONEUM: No retroperitoneal adenopathy, hemorrhage or masses. BOWEL AND PERITONEAL CAVITY: Diffuse fluid-filled loops of nondilated large and small bowel. There i s bowel wall thickening in the jejunum in the left upper quadrant image 40. No ascites or free air. APPENDIX: Not visualized. PELVIS: No mass. No free fluid. Normal bladder. ABDOMINAL WALL: No masses. No hernias. BONES: No significant or acute findings. OTHER: No other significant finding. IMPRESSION: Localized bowel wall thickening in the jejunum which is nonspecific, possibly inflammato ry or infectious etiology. No evidence of bowel obstruction. TECHNICAL DOCUMENTATION: JOB ID: [id number] Quality ID # [id number]: Final reports with documentation of one or more dose reduction techniques (e.g., Au tomated exposure control, adjustment of the mA and/or kV according to patient size, use of iterative reconstruction technique) 2010 [employer]- All Rights Reserved Reading location - IP/workstation name: [email or web address]
[2019-01-05] MEDS ORDERED: NORMAL SALINE 1000 ML 1,000 ML IV ONE (17:06)
--- NOTE | 2019-01-05 17:43 | ER Document Report ---
Doctor's Note Notes: 01/05/19 17:42 Patient was seen in conjunction with the physician biology research assistant. Please see her note correlate with mine. In short this is a 28-year-old female who complains of sudden onset epigastric and right-sided abdominal pain in the middle the night. She had associated nausea, vomiting, diarrhea. Vital signs reveal an afebrile patient, normal respirations. Heart regular rate and rhythm, lungs are clear station bilaterally. Abdomen reveals significant tenderness with voluntary guarding in the epigastric region and right upper quadrant. No rebound. She does have a significant leukocytosis. Surgical consult recommended, we will continue to monitor. 01/05/19 19:54 Serial abdominal exams remain tender. Patient will be admitted for further care.
[2019-01-05] MEDS ORDERED: DIPHENHYDRAMINE HCL 50 MG/ML VIAL IV ONE (18:41)
[2019-01-05] MEDS ORDERED: MORPHINE SULFATE 10 MG/ML INJ IV ONE (18:41)
[2019-01-05] MEDS ORDERED: PIPERACILLIN/TAZOBACTAM 3.375 GM VIAL IV ONE (18:43)
[2019-01-05 19:04] LABS: BACTERIA (WET MOUNT) 4+ BACTERIA SEEN; EPITHELIALS (WET MOUNT) 4+ EPITHELIALS SEEN; RBCS (WET MOUNT) FEW RBCS SEEN; T.VAGINALIS (WET MOUNT) TRICHOMONAS SEEN; WBCS (WET MOUNT) 2+ WBCS SEEN; YEAST (WET MOUNT) NO YEAST SEEN
[2019-01-05] MEDS ORDERED: ACETAMINOPHEN 325 MG SUPP.RECT PR PRN (19:52)
[2019-01-05] MEDS: NORMAL SALINE 1000 ML 1,000 ML IV PRN (19:56)
[2019-01-05] MEDS ORDERED: NORMAL SALINE 1000 ML 1,000 ML IV SCH (20:00)
[2019-01-05 20:33] LABS: CHLAM PCR NOT DETECTED (NOT DETECT)
[2019-01-05] MEDS: MORPHINE SULFATE 10 MG/ML INJ IV PRN (22:17)
[2019-01-05] MEDS: IMIPENEM/CILASTATIN SODIUM 1,000 MG in NORMAL SALINE 250 ML IV SCH (23:41)
[2019-01-06] MEDS: MORPHINE SULFATE 10 MG/ML INJ IV PRN (03:22)
[2019-01-06] MEDS: NORMAL SALINE 1000 ML 1,000 ML IV PRN (03:23)
[2019-01-06] MEDS: IMIPENEM/CILASTATIN SODIUM 1,000 MG in NORMAL SALINE 250 ML IV SCH ×2 (05:08→13:56)
[2019-01-06 05:58] LABS: ABSOLUTE LYMPHOCYTES (AUTO) 1.3 10^3/uL (0.5-4.7); ABSOLUTE MONOCYTES (AUTO) 0.3 10^3/uL (0.1-1.4); ABSOLUTE NEUT (AUTO) 5.6 10^3/uL (1.7-8.2); BASOPHILS % (AUTO) 0.6 % (0-2); EOSINOPHILS % (AUTO) 0.6 % (0-6); HEMATOCRIT 26.1 % (36.0-47.0); HEMOGLOBIN 8.2 g/dL (12.0-15.5); LYMPHOCYTES % (AUTO) 17.5 % (13-45); MEAN CORPUSCULAR HEMOGLOBIN 21.2 pg (27.0-33.4); MEAN CORPUSCULAR HGB CONC 31.4 g/dL (32.0-36.0); MEAN CORPUSCULAR VOLUME 68 fl (80-97); MONOCYTES % (AUTO) 4.4 % (3-13); PLATELET COUNT 200 10^3/uL (150-450); RED BLOOD COUNT 3.86 10^6/uL (3.72-5.28); RED CELL DISTRIBUTION WIDTH 20.5 % (11.5-14.0); SEGMENTED NEUTROPHILS % (AUTO) 76.9 % (42-78); TOTAL CELLS COUNTED % (AUTO) 100 %; WHITE BLOOD COUNT 7.3 10^3/uL (4.0-10.5)
[2019-01-06 06:08] LABS: ALBUMIN 3.3 g/dL (3.5-5.0); ALKALINE PHOSPHATASE 164 U/L (38-126); ANION GAP 7 (5-19); ASPARTATE AMINO TRANSFERASE 180 U/L (14-36); BILIRUBIN,DIRECT 0.2 mg/dL (0.0-0.4); BILIRUBIN,TOTAL 0.6 mg/dL (0.2-1.3); BLOOD UREA NITROGEN 6 mg/dL (7-20); CALCIUM 8.1 mg/dL (8.4-10.2); CARBON DIOXIDE 26 mmol/L (22-30); CHLORIDE 104 mmol/L (98-107); GLUCOSE 91 mg/dL (75-110); POTASSIUM 3.5 mmol/L (3.6-5.0); TOTAL PROTEIN 6.2 g/dL (6.3-8.2)
[2019-01-06] MEDS ORDERED: MORPHINE SULFATE 10 MG/ML INJ IV PRN ×2 (06:18→12:36)
--- NOTE | 2019-01-06 06:27 | PDOC H&P ---
History of Present Illness Admission Date/PCP: 01/05/19 20:02 Patient complains of: Abdominal pain History of Present Illness: JYOTI BROWER is a 28 year old female with a past medical history of bipolar, alcohol, polysubstance abuse and recent opiate overdose requiring prolonged IV Narcan. She presents with 6 hours of severe abdominal pain associated with na usea vomiting and profuse diarrhea. Patient admits to a suspected meal of rare steak which was cooked 24 hours prior without optimal refrigeration. In the emergency room she is found to have leukocytosis, without evidence of HUS but hypotension, intractable pain and guarding. CT reveals ileitis. She receives an IV fluid challenge, morphine and empiric antibiotics and referred to the hospitalist for admission. Past Medical History Cardiac Medical History: Reports: Hypertension - not medicated Denies: Congestive Heart Failure, Coronary Artery Disease, DVT, Myocardial Infarction Pulmonary Medical History: Denies: Asthma, Bronchitis, Chronic Obstructive Pulmonary Disease (COPD), Pneumonia, Tuberculosis Neurological Medical History: Denies: Seizures Endocrine Medical History: Denies: Diabetes Mellitus Type 1, Diabetes Mellitus Type 2, Hyperthyroidism, Hypothyroidism Renal/ Medical History: Denies: End Stage Renal Disease GI Medical History: Denies: Cirrhosis, Crohn's Disease, Gastroesophageal Reflux Disease, Hepatitis, Ulcerative Colitis Musculoskeltal Medical History: Reports: Arthritis - 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 Denies: Fibromyalgia Skin Medical History: Denies: Eczema, Psoriasis Psychiatric Medical History: Reports: Bipolar Disorder, Depression, Schizoaffective Disorder, Substance Abuse, Tobacco Dependency Hematology: Reports: Anemia Denies: Bleeding Tendencies Past Surgical History Past Surgical History: Reports: Orthopedic Surgery - Left ankle open reduction and internal fixation repair March 26, 2018, Other - Ankle surgery Social History Information Source: Patient, [facility] Records Smoking Status: Current Every Day Smoker Cigarettes Packs Per Day: 2 Electronic Cigarette use?: No Last Time Smoked: 01/04/2019 Frequency of Alcohol Use: Social Hx Recreational Drug Use: No Drugs: Cocaine, Heroin, Marijuana Hx Prescription Drug Abuse: No - Advance Directive Resuscitation Status: Full Code Family History Family History: Hypertension, Other - Mental illnesses Parental Family History Reviewed: Yes Children Family History Reviewed: Yes Sibling(s) Family History Reviewed.: Yes Medication/Allergy Home Medications: No Home Medications 01/05/19 Allergies/Adverse Reactions: latex Allergy (Mild, Verified 11/08/18 17:58) tramadol Allergy (Mild, Verified 11/08/18 17:58) hydrocodone bitartrate [From Vicodin] Adverse Reaction (Intermediate, Verified 11/08/18 17:58) Hives Review of Systems Constitutional: ABSENT: chills, fever(s), headache(s), weight gain, weight loss Eyes: ABSENT: visual disturbances Ears: ABSENT: hearing changes Cardiovascular: ABSENT: chest pain, dyspnea on exertion, edema, orthropnea, palpitations Respiratory: ABSENT: cough, hemoptysis Gastrointestinal: ABSENT: abdominal pain, constipation, diarrhea, hematemesis, hematochezia, nausea, vomiting Genitourinary: ABSENT: dysuria, hematuria Musculoskeletal: ABSENT: joint swelling Integumentary: ABSENT: rash, wounds Neurological: ABSENT: abnormal gait, abnormal speech, confusion, dizziness, focal weakness, syncope Psychiatric: ABSENT: anxiety, depression, homidical ideation, suicidal ideation Endocrine: ABSENT: cold intolerance, heat intolerance, polydipsia, polyuria Hematologic/Lymphatic: ABSENT: easy bleeding, easy bruising Physical Exam Vital Signs: Temp Pulse Resp BP Pulse Ox 98.2 F 57 L 17 102/55 L 94 01/06/19 02:59 01/06/19 02:59 01/06/19 02:59 01/06/19 02:59 01/06/19 02:59 Intake & Output 01/04/19 01/05/19 01/06/19 11:59 11:59 11:59 Intake Total 3250 Balance 3250 Weight 60.6 kg General appearance: PRESENT: cooperative, severe distress, thin, well-developed, well-nourished Head exam: PRESENT: atraumatic, normocephalic Eye exam: PRESENT: conjunctiva pink, EOMI, PERRLA. ABSENT: scleral icterus Ear exam: PRESENT: normal external ear exam Mouth exam: PRESENT: moist, tongue midline Neck exam: ABSENT: carotid bruit, JVD, lymphadenopathy, thyromegaly Respiratory exam: PRESENT: clear to auscultation adan. ABSENT: rales, rhonchi, wheezes Cardiovascular exam: PRESENT: RRR. ABSENT: diastolic murmur, rubs, systolic murmur Pulses: PRESENT: normal dorsalis pedis pul GI/Abdominal exam: PRESENT: guarding, hyperactive bowel sounds, soft, tenderness. ABSENT: diminished bowel sounds, distended, firm, Dougherty's sign Rectal exam: PRESENT: deferred Extremities exam: PRESENT: full ROM. ABSENT: calf tenderness, clubbing, pedal edema Neurological exam: PRESENT: alert, awake, oriented to person, oriented to place, oriented to time, oriented to situation, CN II-XII grossly intact. ABSENT: motor sensory deficit Psychiatric exam: PRESENT: anxious, appropriate affect, normal mood. ABSENT: homicidal ideation, suicidal ideation Skin exam: PRESENT: dry, intact, warm. ABSENT: cyanosis, rash Results Laboratory Results: 01/06/19 05:40 01/06/19 05:40 01/05/19 01/05/19 01/05/19 13:05 15:27 15:27 WBC 15.4 H RBC 4.65 Hgb 9.7 L Hct 30.7 L MCV 66 L MCH 21.0 L MCHC 31.7 L RDW 20.5 H Plt Count 271 Seg Neutrophils % 90.9 H Sodium 133.9 L Potassium 4.2 Chloride 96 L Carbon Dioxide 28 Anion Gap 10 BUN 8 Creatinine 0.65 Est GFR ( Amer) > 60 Glucose 119 H Lactic Acid Calcium 9.7 Total Bilirubin 0.9 AST 29 Alkaline Phosphatase 70 Total Protein 8.2 Albumin 4.6 Lipase 19.2 L Urine Color JONNY Urine Appearance SLIGHTLY-CLOUDY Urine pH 5.0 Ur Specific [place] 1.023 Urine Protein 30 H Urine Glucose (UA) NEGATIVE Urine Ketones 20 H Urine Blood MODERATE H Urine Nitrite NEGATIVE Ur Leukocyte Esterase NEGATIVE Urine WBC (Auto) 2 Urine RBC (Auto) 4 01/05/19 01/06/19 01/06/19 19:20 05:40 05:40 WBC 7.3 RBC 3.86 Hgb 8.2 L Hct 26.1 L MCV 68 L MCH 21.2 L MCHC 31.4 L RDW 20.5 H Plt Count 200 Seg Neutrophils % 76.9 Sodium 137.4 Potassium 3.5 L Chloride 104 Carbon Dioxide 26 Anion Gap 7 BUN 6 L Creatinine 0.70 Est GFR ( Amer) > 60 Glucose 91 Lactic Acid 0.8 Calcium 8.1 L Total Bilirubin 0.6 AST 180 H Alkaline Phosphatase 164 H Total Protein 6.2 L Albumin 3.3 L Lipase Urine Color Urine Appearance Urine pH Ur Specific [place] Urine Protein Urine Glucose (UA) Urine Ketones Urine Blood Urine Nitrite Ur Leukocyte Esterase Urine WBC (Auto) Urine RBC (Auto) Impressions: Abdomen/Pelvis CT 01/05/19 12:44 IMPRESSION: Localized bowel wall thickening in the jejunum which is nonspecific, possibly inflammatory or infectious etiology. No evidence of bowel obstruction. Assessment and Plan - Diagnosis (1) Ileitis Is this a current diagnosis for this admission?: Yes Plan: IV fluid challenge, empiric antibiotics, follow-up CBC, chemistry. Symptomatic management, limit narcotics given history of polysubstance abuse (2) Abdominal pain Is this a current diagnosis for this admission?: Yes Plan: Secondary to #1, (3) Bipolar disorder Qualifiers: Is this a current diagnosis for this admission?: Yes Plan: Seroquel ordered (4) Polysubstance abuse Is this a current diagnosis for this admission?: Yes Plan: Anticipate narcotic demands - Time Time Spent with patient: 25-34 minutes - Inpatient Certification Medical Necessity: Need Close Monitoring Due to Risk of Patient Decompensation
[2019-01-06 09:21] LABS: C DIFFICILE GDH NEGATIVE (NEGATIVE)
--- NOTE | 2019-01-06 12:36 | PDOC PROGRESS REPORT ---
Subjective Progress Note for:: 01/06/19 Subjective:: 01/06/2019 she was admitted with nausea vomiting diarrhea and abdominal pain. She thinks it may been from eating uncooked meat, however she is positive for trichomonas as well as gonorrhea. I wonder if this was PID she is currently on Primaxin. Reason For Visit: ILEITIS,ABDOMINAL PAIN Physical Exam Vital Signs: Temp Pulse Resp BP Pulse Ox 98.2 F 54 L 17 102/55 L 94 01/06/19 02:59 01/06/19 07:00 01/06/19 02:59 01/06/19 02:59 01/06/19 02:59 Intake & Output 01/05/19 01/06/19 01/07/19 06:59 06:59 06:59 Intake Total 3500 Balance 3500 Weight 60.6 kg General appearance: PRESENT: no acute distress, other - Much better only for loose stools since last night and no vomiting Respiratory exam: PRESENT: clear to auscultation adan. ABSENT: rales, rhonchi, wheezes Cardiovascular exam: PRESENT: RRR. ABSENT: diastolic murmur, rubs, systolic murmur GI/Abdominal exam: PRESENT: normal bowel sounds, soft. ABSENT: distended, guarding, mass, organolmegaly, rebound, tenderness Neurological exam: PRESENT: alert, awake, oriented to person, oriented to place, oriented to time, oriented to situation, CN II-XII grossly intact. ABSENT: motor sensory deficit Psychiatric exam: PRESENT: appropriate affect, normal mood. ABSENT: homicidal ideation, suicidal ideation Results Laboratory Results: 01/06/19 05:40 01/06/19 05:40 01/05/19 01/05/19 01/05/19 13:05 15:27 15:27 WBC 15.4 H RBC 4.65 Hgb 9.7 L Hct 30.7 L MCV 66 L MCH 21.0 L MCHC 31.7 L RDW 20.5 H Plt Count 271 Seg Neutrophils % 90.9 H Sodium 133.9 L Potassium 4.2 Chloride 96 L Carbon Dioxide 28 Anion Gap 10 BUN 8 Creatinine 0.65 Est GFR ( Amer) > 60 Glucose 119 H Lactic Acid Calcium 9.7 Total Bilirubin 0.9 AST 29 Alkaline Phosphatase 70 Total Protein 8.2 Albumin 4.6 Lipase 19.2 L Urine Color JONNY Urine Appearance SLIGHTLY-CLOUDY Urine pH 5.0 Ur Specific [place] 1.023 Urine Protein 30 H Urine Glucose (UA) NEGATIVE Urine Ketones 20 H Urine Blood MODERATE H Urine Nitrite NEGATIVE Ur Leukocyte Esterase NEGATIVE Urine WBC (Auto) 2 Urine RBC (Auto) 4 01/05/19 01/06/19 01/06/19 19:20 05:40 05:40 WBC 7.3 RBC 3.86 Hgb 8.2 L Hct 26.1 L MCV 68 L MCH 21.2 L MCHC 31.4 L RDW 20.5 H Plt Count 200 Seg Neutrophils % 76.9 Sodium 137.4 Potassium 3.5 L Chloride 104 Carbon Dioxide 26 Anion Gap 7 BUN 6 L Creatinine 0.70 Est GFR ( Amer) > 60 Glucose 91 Lactic Acid 0.8 Calcium 8.1 L Total Bilirubin 0.6 AST 180 H Alkaline Phosphatase 164 H Total Protein 6.2 L Albumin 3.3 L Lipase Urine Color Urine Appearance Urine pH Ur Specific [place] Urine Protein Urine Glucose (UA) Urine Ketones Urine Blood Urine Nitrite Ur Leukocyte Esterase Urine WBC (Auto) Urine RBC (Auto) Impressions: Abdomen/Pelvis CT 01/05/19 12:44 IMPRESSION: Localized bowel wall thickening in the jejunum which is nonspecific, possibly inflammatory or infectious etiology. No evidence of bowel obstruction. Assessment and Plan - Diagnosis (1) Gonorrhea Is this a current diagnosis for this admission?: Yes Plan: 01/06/2019 we will switch to Rocephin (2) Trichomonas vaginalis infection Is this a current diagnosis for this admission?: Yes Plan: We will start Flagyl 500 mg twice daily (3) Abdominal pain Is this a current diagnosis for this admission?: Yes Plan: Secondary to #1, 01/06/2019 patient states her abdominal pain is much better with no further vomiting (4) Polysubstance abuse Is this a current diagnosis for this admission?: Yes Plan: Anticipate narcotic demands 01/06/2019 she is not asking for any other pain medicine at this time we will decrease her morphine schedule and dosing - Plan Summary Summary: 01/06/2019 we will start clear diet and advance as tolerated we will give a dose of Rocephin 500 mg IV for her gonorrhea. Will also add Flagyl 500 mg twice daily for 7 days - Time Time Spent with patient: 35 or more minutes
[2019-01-06] MEDS: CEFTRIAXONE 1 GM/D5W RTU 1 GM/50 ML RTUPB IV SCH (13:28)
[2019-01-06] MEDS: METRONIDAZOLE 500 MG TABLET PO SCH (21:29)
[2019-01-06] MEDS ORDERED: QUETIAPINE FUMARATE 100 MG TABLET PO SCH (22:00)
[2019-01-07] MEDS ORDERED: INFLUENZA QUAD (6MOS+) 2019-20 VAC 0.5 ML SYR IM ONE (08:00)
[2019-01-07 08:17] VITALS: BP 115/71
[2019-01-07] MEDS: METRONIDAZOLE 500 MG TABLET PO SCH (09:49)
[2019-01-07] MEDS: CEFTRIAXONE 1 GM/D5W RTU 1 GM/50 ML RTUPB IV SCH (09:49)
--- NOTE | 2019-01-07 09:51 | PDOC DISCHARGE SUMMARY ---
Impression - Admit/DC Date/PCP Admission Date/Primary Care Provider: 01/05/19 20:02 Discharge Date: 01/07/19 - Discharge Diagnosis (1) Gonorrhea Is this a current diagnosis for this admission?: Yes (2) Trichomonas vaginalis infection Is this a current diagnosis for this admission?: Yes (3) Abdominal pain Is this a current diagnosis for this admission?: Yes (4) Polysubstance abuse Is this a current diagnosis for this admission?: Yes (5) Bipolar disorder Is this a current diagnosis for this admission?: Yes - Assessment Summary: 01/06/2019 we will start clear diet and advance as tolerated we will give a dose of Rocephin 500 mg IV for her gonorrhea. Will also add Flagyl 500 mg twice daily for 7 days 01/07/2019 patient is tolerating a regular diet, no further vomiting no further diarrhea. She does not complain of any abdominal pain. I written a prescription for Flagyl 500 mg 14 tablets 1 twice daily and Seroquel 100 mg 60 tablets 1 or 2 nightly as needed Patient has contacted her sexual partner concerning her positive wet prep.. Patient will follow-up with her primary care as needed. Patient does not appear to require any p.o. antibiotics other than Flagyl. - Additional Information Resuscitation Status: Full Code Discharge Diet: As Tolerated Discharge Activity: Activity As Tolerated Referrals: [facility] [Outside] Prescriptions: Metronidazole [Flagyl 500 mg Tablet] 500 mg PO Q12 #20 tablet Quetiapine Fumarate [Seroquel 100 mg Tablet] 100 mg PO QHS #60 tablet Home Medications: Metronidazole [Flagyl 500 mg Tablet] 500 mg PO Q12 #20 tablet 01/07/19 Quetiapine Fumarate [Seroquel 100 mg Tablet] 100 mg PO QHS #60 tablet 01/07/19 History of Present Illiness History of Present Illness: JYOTI BROWER is a 28 year old female Physical Exam Vital Signs: Temp Pulse Resp BP Pulse Ox 97.5 F 59 L 19 115/71 100 01/07/19 08:00 01/07/19 08:00 01/07/19 08:00 01/07/19 08:00 01/07/19 08:00 Intake & Output 01/06/19 01/07/19 01/08/19 06:59 06:59 06:59 Intake Total 3500 1112 Balance 3500 1112 Weight 60.6 kg 60.5 kg Results Laboratory Results: WBC 7.3 10^3/uL (4.0-10.5) 01/06/19 05:40 RBC 3.86 10^6/uL (3.72-5.28) 01/06/19 05:40 Hgb 8.2 g/dL (12.0-15.5) L 01/06/19 05:40 Hct 26.1 % (36.0-47.0) L 01/06/19 05:40 MCV 68 fl (80-97) L 01/06/19 05:40 MCH 21.2 pg (27.0-33.4) L 01/06/19 05:40 MCHC 31.4 g/dL (32.0-36.0) L 01/06/19 05:40 RDW 20.5 % (11.5-14.0) H 01/06/19 05:40 Plt Count 200 10^3/uL (150-450) 01/06/19 05:40 Lymph % (Auto) 17.5 % (13-45) 01/06/19 05:40 [place] % (Auto) 4.4 % (3-13) 01/06/19 05:40 Eos % (Auto) 0.6 % (0-6) 01/06/19 05:40 Baso % (Auto) 0.6 % (0-2) 01/06/19 05:40 Absolute Neuts (auto) 5.6 10^3/uL (1.7-8.2) 01/06/19 05:40 Absolute Lymphs (auto) 1.3 10^3/uL (0.5-4.7) 01/06/19 05:40 Absolute Monos (auto) 0.3 10^3/uL (0.1-1.4) 01/06/19 05:40 Absolute Eos (auto) 0.0 10^3/uL (0.0-0.6) 01/06/19 05:40 Absolute Basos (auto) 0.0 10^3/uL (0.0-0.2) 01/06/19 05:40 Seg Neutrophils % 76.9 % (42-78) 01/06/19 05:40 Sodium 137.4 mmol/L (137-145) 01/06/19 05:40 Potassium 3.5 mmol/L (3.6-5.0) L 01/06/19 05:40 Chloride 104 mmol/L (98-107) 01/06/19 05:40 Carbon Dioxide 26 mmol/L (22-30) 01/06/19 05:40 Anion Gap 7 (5-19) 01/06/19 05:40 BUN 6 mg/dL (7-20) L 01/06/19 05:40 Creatinine 0.70 mg/dL (0.52-1.25) 01/06/19 05:40 Est GFR ( Amer) > 60 (>60) 01/06/19 05:40 Est GFR (MDRD) Non-Af > 60 (>60) 01/06/19 05:40 Glucose 91 mg/dL (75-110) 01/06/19 05:40 Lactic Acid 0.8 mmol/L (0.7-2.1) 01/05/19 19:20 Calcium 8.1 mg/dL (8.4-10.2) L 01/06/19 05:40 Total Bilirubin 0.6 mg/dL (0.2-1.3) 01/06/19 05:40 Direct Bilirubin 0.2 mg/dL (0.0-0.4) 01/06/19 05:40 Neonat Total Bilirubin Not Reportable 01/06/19 05:40 Neonat Direct Bilirubin Not Reportable 01/06/19 05:40 Neonat Indirect Bili Not Reportable 01/06/19 05:40 AST 180 U/L (14-36) H 01/06/19 05:40 ALT 56 U/L (<35) 01/06/19 05:40 Alkaline Phosphatase 164 U/L (38-126) H 01/06/19 05:40 Total Protein 6.2 g/dL (6.3-8.2) L 01/06/19 05:40 Albumin 3.3 g/dL (3.5-5.0) L 01/06/19 05:40 Lipase 19.2 U/L (23-300) L 01/05/19 15:27 Urine Color JONNY 01/05/19 13:05 Urine Appearance SLIGHTLY-CLOUDY 01/05/19 13:05 Urine pH 5.0 (5.0-9.0) 01/05/19 13:05 Ur Specific [place] 1.023 01/05/19 13:05 Urine Protein 30 mg/dL (NEGATIVE) H 01/05/19 13:05 Urine Glucose (UA) NEGATIVE mg/dL (NEGATIVE) 01/05/19 13:05 Urine Ketones 20 mg/dL (NEGATIVE) H 01/05/19 13:05 Urine Blood MODERATE (NEGATIVE) H 01/05/19 13:05 Urine Nitrite NEGATIVE (NEGATIVE) 01/05/19 13:05 Urine Bilirubin NEGATIVE (NEGATIVE) 01/05/19 13:05 Urine Urobilinogen NEGATIVE mg/dL (<2.0) 01/05/19 13:05 Ur Leukocyte Esterase NEGATIVE (NEGATIVE) 01/05/19 13:05 Urine WBC (Auto) 2 /HPF 01/05/19 13:05 Urine RBC (Auto) 4 /HPF 01/05/19 13:05 Urine Bacteria (Auto) TRACE /HPF 01/05/19 13:05 Squamous Epi Cells Auto 7 /HPF 01/05/19 13:05 Urine Mucus (Auto) MOD /LPF 01/05/19 13:05 Urine Ascorbic Acid NEGATIVE (NEGATIVE) 01/05/19 13:05 Urine HCG, Qual NEGATIVE (NEGATIVE) 01/05/19 13:05 Stl C. Difficile GDH Ag NEGATIVE (NEGATIVE) 01/06/19 05:05 Stl C.difficile Tox A&B NEGATIVE (NEGATIVE) 01/06/19 05:05 Epi Cells (Wet Prep) 4+ EPITHELIALS SEEN 01/05/19 17:30 Bacteria (Wet Prep) 4+ BACTERIA SEEN 01/05/19 17:30 Trichomonas (Wet Prep) TRICHOMONAS SEEN 01/05/19 17:30 Vaginal WBC 2+ WBCS SEEN 01/05/19 17:30 Vaginal RBC FEW RBCS SEEN 01/05/19 17:30 Vaginal Yeast NO YEAST SEEN 01/05/19 17:30 Chlamydia DNA (PCR) NOT DETECTED (NOT DETECT) 01/05/19 17:30 N.gonorrhoeae DNA (PCR) DETECTED (NOT DETECT) H 01/05/19 17:30 Impressions: Abdomen/Pelvis CT 01/05/19 12:44 IMPRESSION: Localized bowel wall thickening in the jejunum which is nonspecific, possibly inflammatory or infectious etiology. No evidence of bowel obstruction. Stroke Is this a Stroke Patient?: No Acute Heart Failure - Is this a Heart Failure Patient?: No
== END 2019-01-07 14:38 | disposition home or self-care (01) ==
LOC: ER 11:34 → INTOOBSV 20:02 → EH 20:02 → 4W 22:57
PROVIDERS: ADMIT Internal Medicine; ATTEND Internal Medicine
DX: A54.9 Gonococcal infection, unspecified (principal); A59.01 Trichomonal vulvovaginitis; K52.9 Noninfective gastroenteritis and colitis, unspecified; F19.10 Other psychoactive substance abuse, uncomplicated; F31.9 Bipolar disorder, unspecified; R10.13 Epigastric pain; R10.11 Right upper quadrant pain; R11.2 Nausea with vomiting, unspecified; F17.210 Nicotine dependence, cigarettes, uncomplicated; Z87.442 Personal history of urinary calculi; Z23 Encounter for immunization
CPT/HCPCS: 96376; 99285; 96375; 96365; 36415 ×2; 87040; 87045; 87205; 87209; 87210; 83690; 87177; 85025 ×2; 81025; 80053 ×2; 81001; 87491; 87591; 83605; 87324; 87449; 74177; 90686; G0378 ×4; J0743 ×2; J1200; J3010; J2270 ×2; J3490; J2405; J7030 ×2; J7050 ×2; J0696 ×2; J2543

== ENCOUNTER 2019-03-19 15:40 | Emergency (ER) | payer SELFPAY ==
[2019-03-19 15:56] VITALS: BP 131/87
--- NOTE | 2019-03-19 17:55 | ER Document Report ---
ED Medical Screen (RME) - General Chief Complaint: OB Problem (>20wk) Stated Complaint: PREGNACY PROBLEM Time Seen by Provider: 03/19/19 17:50 Mode of Arrival: Ambulatory Information source: Patient Notes: 28-year-old female presents emergency department reporting that she is and she is having vaginal spotting. Patient really wants to know how she is. She reports her menses is irregular. I have greeted and performed a rapid initial assessment of this patient. A comprehensive ED assessment and evaluation of the patient, analysis of test results and completion of the medical decision making process will be conducted by additional ED providers. TRAVEL OUTSIDE OF THE [place] IN LAST 30 DAYS: No - Related Data Allergies/Adverse Reactions: latex Allergy (Mild, Verified 03/19/19 17:50) tramadol Allergy (Mild, Verified 03/19/19 17:50) hydrocodone bitartrate [From Vicodin] Adverse Reaction (Intermediate, Verified 03/19/19 17:50) Hives Past Medical History - Past Medical History Cardiac Medical History: Reports: Hx Hypertension - not medicated Denies: Hx Congestive Heart Failure, Hx Coronary Artery Disease, Hx DVT, Hx Heart Attack Pulmonary Medical History: Denies: Hx Asthma, Hx Bronchitis, Hx COPD, Hx Pneumonia, Hx Tuberculosis Neurological Medical History: Denies: Hx Seizures, Hx Parkinson's Disease Endocrine Medical History: Denies: Hx Diabetes Mellitus Type 1, Hx Diabetes Mellitus Type 2, Hx Hyperthyroidism, Hx Hypothyroidism Renal/ Medical History: Denies: Hx End Stage Renal Disease, Hx Kidney Stones, Hx Peritoneal Dialysis GI Medical History: Denies: Hx Cirrhosis, Hx Crohn's Disease, Hx Gastroesophageal Reflux Disease, Hx Hepatitis, Hx Ulcer, Hx Ulcerative Colitis Musculoskeltal Medical History: Reports Hx Arthritis - 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, Denies Hx Fibromyalgia, Denies Hx Multiple Sclerosis Skin Medical History: Denies Hx Eczema, Denies Hx Psoriasis Psychiatric Medical History: Reports: Hx Anxiety, Hx Bipolar Disorder, Hx Depression, Hx Schizoaffective Disorder, Hx Schizophrenia - pt denied at this visit Infectious Medical History: Denies: Hx Hepatitis Past Surgical History: Reports: Hx Orthopedic Surgery - Left ankle open reduction and internal fixation repair March 26, 2018, Other - Ankle surgery - Immunizations Immunizations up to date: No Hx Diphtheria, Pertussis, Tetanus Vaccination: Yes - 06/24/11 Physical Exam - Vital signs Vitals: Temp Pulse Resp BP Pulse Ox 98.0 F 121 H 16 131/87 H 98 03/19/19 15:55 03/19/19 15:55 03/19/19 15:55 03/19/19 15:55 03/19/19 15:55 Course - Vital Signs Vital signs: Temp Pulse Resp BP Pulse Ox 98.0 F 121 H 16 131/87 H 98 03/19/19 15:55 03/19/19 15:55 03/19/19 15:55 03/19/19 15:55 03/19/19 15:55
[2019-03-19 18:15] LABS: ABSOLUTE LYMPHOCYTES (AUTO) 1.1 10^3/uL (0.5-4.7); ABSOLUTE MONOCYTES (AUTO) 0.4 10^3/uL (0.1-1.4); ABSOLUTE NEUT (AUTO) 3.1 10^3/uL (1.7-8.2); BASOPHILS % (AUTO) 0.9 % (0-2); EOSINOPHILS % (AUTO) 0.6 % (0-6); HEMOGLOBIN 10.1 g/dL (12.0-15.5); LYMPHOCYTES % (AUTO) 23.4 % (13-45); MEAN CORPUSCULAR HEMOGLOBIN 21.9 pg (27.0-33.4); MEAN CORPUSCULAR HGB CONC 31.5 g/dL (32.0-36.0); MEAN CORPUSCULAR VOLUME 70 fl (80-97); MONOCYTES % (AUTO) 9.4 % (3-13); PLATELET COUNT 265 10^3/uL (150-450); RED BLOOD COUNT 4.59 10^6/uL (3.72-5.28); RED CELL DISTRIBUTION WIDTH 23.6 % (11.5-14.0); SEGMENTED NEUTROPHILS % (AUTO) 65.7 % (42-78); TOTAL CELLS COUNTED % (AUTO) 100 %; WHITE BLOOD COUNT 4.7 10^3/uL (4.0-10.5)
[2019-03-19 18:33] LABS: ALBUMIN 4.3 g/dL (3.5-5.0); ALKALINE PHOSPHATASE 69 U/L (38-126); ANION GAP 13 (5-19); ASPARTATE AMINO TRANSFERASE 29 U/L (14-36); BILIRUBIN,DIRECT 0.2 mg/dL (0.0-0.4); BILIRUBIN,TOTAL 0.3 mg/dL (0.2-1.3); BLOOD UREA NITROGEN 8 mg/dL (7-20); CALCIUM 9.2 mg/dL (8.4-10.2); CARBON DIOXIDE 26 mmol/L (22-30); CHLORIDE 102 mmol/L (98-107); GLUCOSE 88 mg/dL (75-110); POTASSIUM 3.8 mmol/L (3.6-5.0); TOTAL PROTEIN 7.7 g/dL (6.3-8.2)
--- NOTE | 2019-03-19 20:19 | RADIOLOGY REPORT (SQ) ---
EXAM DESCRIPTION: CLINICAL HISTORY: 28 years Female, vag spotting, preg COMPARISON: No recent study. FINDINGS: Examination performed with transvaginal approach. Normal-sized uterus. Normal appearance of the endometrium normal appearance of the cervix. No evidence for intrauterine . Ovaries are normal in size and echotexture with normal vascularity. No adnexal mass or free fluid. IMPRESSION: No evidence for IUP. No sonographic evidence for ectopic . If ectopic suspected, suggest further follow-up with ultrasound and beta hCG levels.
== END 2019-03-19 21:20 | disposition left against medical advice (07) ==
LOC: ER 15:40
DX: O20.9 Hemorrhage in early pregnancy, unspecified (principal); Z91.040 Latex allergy status; Z88.6 Allergy status to analgesic agent
CPT/HCPCS: 36415; 76817; 80053; 84702; 85025; 86900; 86901; 99281

== ENCOUNTER 2019-03-21 12:46 | Emergency (ER) | payer SELFPAY ==
--- NOTE | 2019-03-21 13:46 | ER Document Report ---
ED Medical Screen (RME) - General Chief Complaint: Vaginal Bleeding Stated Complaint: VAGIANL BLEEDING Time Seen by Provider: 03/21/19 13:41 TRAVEL OUTSIDE OF THE [place] IN LAST 30 DAYS: No - HPI Notes: 03/21/19 13:44 Patient is a 28-year-old female with one previous miscarriage with otherwise early who presents for reevaluation. Patient was here couple days ago and had lab work and ultrasound performed which showed a very low hCG count. Patient had been bleeding at that time. Patient states that she is still having some pink tinge, but nothing like it was before. She is not currently having any pain. Patient otherwise eloped from her last visit due to the congestion within the ED. Denies fever. I have treated and performed a rapid initial assessment of this patient. A com prehensive ED assessment and evaluation of the patient, analysis of test results and completion of medical decision making process will be conducted by additional ED providers. PHYSICAL EXAMINATION: GENERAL: Well-appearing, well-nourished and in no acute distress. A&Ox4. Answers questions appropriately. - Related Data Allergies/Adverse Reactions: latex Allergy (Mild, Verified 03/21/19 13:41) tramadol Allergy (Mild, Verified 03/21/19 13:41) hydrocodone bitartrate [From Vicodin] Adverse Reaction (Intermediate, Verified 03/21/19 13:41) Hives Past Medical History - Past Medical History Cardiac Medical History: Reports: Hx Hypertension - not medicated Denies: Hx Congestive Heart Failure, Hx Coronary Artery Disease, Hx DVT, Hx Heart Attack Pulmonary Medical History: Denies: Hx Asthma, Hx Bronchitis, Hx COPD, Hx Pneumonia, Hx Tuberculosis Neurological Medical History: Denies: Hx Seizures, Hx Parkinson's Disease Endocrine Medical History: Denies: Hx Diabetes Mellitus Type 1, Hx Diabetes Mellitus Type 2, Hx Hyperthyroidism, Hx Hypothyroidism Renal/ Medical History: Denies: Hx End Stage Renal Disease, Hx Kidney Stones, Hx Peritoneal Dialysis GI Medical History: Denies: Hx Cirrhosis, Hx Crohn's Disease, Hx Gastroesophageal Reflux Disease, Hx Hepatitis, Hx Ulcer, Hx Ulcerative Colitis Musculoskeltal Medical History: Reports Hx Arthritis - 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, Denies Hx Fibromyalgia, Denies Hx Multiple Sclerosis Skin Medical History: Denies Hx Eczema, Denies Hx Psoriasis Psychiatric Medical History: Reports: Hx Anxiety, Hx Bipolar Disorder, Hx Depression, Hx Schizoaffective Disorder, Hx Schizophrenia - pt denied at this visit Infectious Medical History: Denies: Hx Hepatitis Past Surgical History: Reports: Hx Orthopedic Surgery - Left ankle open reduction and internal fixation repair March 26, 2018, Other - Ankle surgery - Immunizations Immunizations up to date: No Hx Diphtheria, Pertussis, Tetanus Vaccination: Yes - 06/24/11 Physical Exam - Vital signs Vitals: Temp Pulse Resp BP Pulse Ox 98.4 F 65 18 119/73 100 03/21/19 13:20 03/21/19 13:20 03/21/19 13:20 03/21/19 13:20 03/21/19 13:20 Course - Vital Signs Vital signs: Temp Pulse Resp BP Pulse Ox 98.4 F 65 18 119/73 100 03/21/19 13:20 03/21/19 13:20 03/21/19 13:20 03/21/19 13:20 03/21/19 13:20
[2019-03-21 15:00] LABS: APPEARANCE,URINE SLIGHTLY-CLOUDY; BILIRUBIN,URINE NEGATIVE (NEGATIVE); COLOR,URINE YELLOW; GLUCOSE, URINE NEGATIVE (NEGATIVE); KETONES,URINE NEGATIVE (NEGATIVE); PROTEIN,URINE NEGATIVE (NEGATIVE); URINE SPECIFIC GRAVITY 1.017; UROBILINOGEN,URINE NEGATIVE mg/dL (<2.0)
--- NOTE | 2019-03-21 16:28 | ER Document Report ---
ED General - General Chief Complaint: Vaginal Bleeding Stated Complaint: VAGIANL BLEEDING Time Seen by Provider: 03/21/19 13:41 Notes: 28-year-old G5, P3 patient presents for pelvic exam. Patient was in ER 2 days ago and had work-up including ultrasound however left due to how busy the ER was. Patient has a history of 1 miscarriage. Patient states she is just having some pink spotting now and denies any vaginal bleeding. Patient states she has had multiple home tests which were positive. Patient denies any pelvic pain, abdominal pain, nausea/vomiting, urinary symptoms. LMP is 02/09. TRAVEL OUTSIDE OF THE [place] IN LAST 30 DAYS: No - Related Data Allergies/Adverse Reactions: latex Allergy (Mild, Verified 03/21/19 13:41) tramadol Allergy (Mild, Verified 03/21/19 13:41) hydrocodone bitartrate [From Vicodin] Adverse Reaction (Intermediate, Verified 03/21/19 13:41) Hives Past Medical History - General Last Menstrual Period: 02/09/19 - Social History Smoking Status: Current Every Day Smoker Chew tobacco use (# tins/day): No Drug Abuse: Heroin Family History: Hypertension, Other - Mental illnesses Patient has suicidal ideation: No Patient has homicidal ideation: No - Past Medical History Cardiac Medical History: Reports: Hx Hypertension - not medicated Denies: Hx Congestive Heart Failure, Hx Coronary Artery Disease, Hx DVT, Hx Heart Attack Pulmonary Medical History: Denies: Hx Asthma, Hx Bronchitis, Hx COPD, Hx Pneumonia, Hx Tuberculosis Neurological Medical History: Denies: Hx Seizures, Hx Parkinson's Disease Endocrine Medical History: Denies: Hx Diabetes Mellitus Type 1, Hx Diabetes Me llitus Type 2, Hx Hyperthyroidism, Hx Hypothyroidism Renal/ Medical History: Denies: Hx End Stage Renal Disease, Hx Kidney Stones, Hx Peritoneal Dialysis GI Medical History: Denies: Hx Cirrhosis, Hx Crohn's Disease, Hx Gastroesophageal Reflux Disease, Hx Hepatitis, Hx Ulcer, Hx Ulcerative Colitis Musculoskeletal Medical History: Reports Hx Arthritis - 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, Denies Hx Fibromyalgia, Denies Hx Multiple Sclerosis Skin Medical History: Denies Hx Eczema, Denies Hx Psoriasis Psychiatric Medical History: Reports: Hx Anxiety, Hx Bipolar Disorder, Hx Depression, Hx Schizoaffective Disorder, Hx Schizophrenia - pt denied at this visit Infectious Medical History: Denies: Hx Hepatitis Past Surgical History: Reports: Hx Orthopedic Surgery - Left ankle open reduction and internal fixation repair March 26, 2018, Other - Ankle surgery - Immunizations Immunizations up to date: No Hx Diphtheria, Pertussis, Tetanus Vaccination: Yes - 06/24/11 Review of Systems - Review of Systems Notes: Constitutional: Negative for fever. HENT: Negative for sore throat. Eyes: Negative for visual changes. Cardiovascular: Negative for chest pain. Respiratory: Negative for shortness of breath. Gastrointestinal: Negative for abdominal pain, vomiting or diarrhea. Genitourinary: Positive for vaginal spotting. Negative for dysuria. Musculoskeletal: Negative for back pain. Skin: Negative for rash. Neurological: Negative for headaches, weakness or numbness. 10 point ROS negative except as marked above and in HPI. Physical Exam - Vital signs Vitals: Temp Pulse Resp BP Pulse Ox 98.4 F 65 18 119/73 100 03/21/19 13:20 03/21/19 13:20 03/21/19 13:20 03/21/19 13:20 03/21/19 13:20 - Notes Notes: GENERAL: Well-appearing, well-nourished and in no acute distress. HEAD: Atraumatic, normocephalic. EYES: Extraocular movements intact, sclera anicteric, conjunctiva are normal. NECK: Normal range of motion, supple without lymphadenopathy or JVD. ABDOMEN: Soft, nontender. No guarding, no rebound. No masses appreciated. : No active bleeding. Minimal white vaginal discharge. No cervical motion or bilateral adnexal tenderness. EXTREMITIES: Normal range of motion, no pitting or edema. No clubbing or cyanosis. NEUROLOGICAL: Cranial nerves II through XII grossly intact. Normal speech, normal gait. PSYCH: Normal mood, normal affect. SKIN: Warm, Dry, normal turgor, no rashes or lesions noted. Course - Re-evaluation Re-evalutation: 03/21/19 G5, P3 28-year-old female presents for pelvic exam. Patient in ER on 03/19 and had to leave due to how busy the ER was. Patient states she is here for just a pelvic exam. Review of records indicates reassuring CBC, CMP and ultrasound with no IUP. Patient's beta hCG at that time was 118.45. Patient's beta-hCG today was 134.88. Patient's LMP is 02/09 which puts her at 5 weeks 5 days today with an estimated delivery date of 11/16/2019. Wet mount done. Patient is nontoxic, well-appearing. Pelvic indicates mild white discharge without bleeding and no cervical motion or bilateral adnexal tenderness. Discussed with patient beta-hCG and work-up 2 days ago. Told patient that beta-hCG should be increasing more. Patient to be provided close follow-up with her [employer]. Patient declined treatment for gonorrhea/chlamydia and states she has no concern for STDs. - Vital Signs Vital signs: Temp Pulse Resp BP Pulse Ox 98.4 F 65 18 119/73 100 03/21/19 13:20 03/21/19 13:20 03/21/19 13:20 03/21/19 13:20 03/21/19 13:20 - Laboratory Laboratory results interpreted by me: 03/21/19 03/21/19 14:15 14:50 Beta HCG, Quant 134.88 H Urine Blood SMALL H Leukocyte Esterase Rfl MODERATE H Discharge - Discharge Clinical Impression: Vaginal bleeding during , Threatened Condition: Stable Disposition: HOME, SELF-CARE Instructions: Bleeding During Early ([facility]), Threatened Miscarriage ([facility]), Ectopic Precaution ([facility]) Additional Instructions: Your beta-hCG today was 134.88, 2 days ago it was 118.45. Based off your LMP of 18 you are approximately 5 weeks 5 days today and your estimated delivery date is 11/16/2019. Please follow-up with your [employer] in 3 to 5 days. Return immediately to ER for any worsening symptoms, including pelvic pain, vaginal bleeding, vaginal discharge, nausea/vomiting, fevers, abdominal pain, chest pain, shortness of breath, or any other symptoms that are concerning to you. Referrals: [facility] [Provider Group] - Follow up in 3-5 days
[2019-03-21 16:37] LABS: BACTERIA (WET MOUNT) 3+ BACTERIA SEEN; EPITHELIALS (WET MOUNT) 3+ EPITHELIALS SEEN; T.VAGINALIS (WET MOUNT) NO TRICHOMONAS SEEN; WBCS (WET MOUNT) 1+ WBCS SEEN; YEAST (WET MOUNT) NO YEAST SEEN
[2019-03-21 17:00] VITALS: BP 118/79
[2019-03-21 18:07] LABS: CHLAM PCR NOT DETECTED (NOT DETECT)
== END 2019-03-21 17:00 | disposition home or self-care (01) ==
LOC: ER 12:46
DX: O20.0 Threatened abortion (principal); O99.331 Smoking (tobacco) complicating pregnancy, first trimester; O16.1 Unspecified maternal hypertension, first trimester; Z3A.01 Less than 8 weeks gestation of pregnancy
CPT/HCPCS: 36415; 81001; 84702; 87210; 87491; 87591; 99284

== ENCOUNTER 2019-05-06 15:10 | Emergency (ER) | payer SELFPAY ==
[2019-05-06 15:22] VITALS: BP 138/93
--- NOTE | 2019-05-06 16:28 | ER Document Report ---
HPI - HPI Patient complains to provider of: cold symptoms work note Time Seen by Provider: 05/06/19 16:22 Onset: Yesterday Quality of pain: No pain Context: 28-year-old female presents emergency department with reports that she had cold symptoms yesterday called out sick and now she is here for work note. Reports they will not let her go back to work unless she has that note. She denies symptoms today. Denies fever vomiting diarrhea. She reports she sneezed a little and had a little bit of fever yesterday. Associated Symptoms: Fever Exacerbated by: Denies Relieved by: Denies Similar symptoms previously: No Recently seen / treated by doctor: No - REPRODUCTIVE Reproductive: REPORTS: : Past Medical History - General Information source: Patient Last Menstrual Period: just finished - Social History Smoking Status: Unknown if Ever Smoked Frequency of alcohol use: None Drug Abuse: None Occupation: [employer] Lives with: Family Family History: Hypertension, Other - Mental illnesses Patient has suicidal ideation: No Patient has homicidal ideation: No - Past Medical History Cardiac Medical History: Reports: Hx Hypertension - not medicated Denies: Hx Congestive Heart Failure, Hx Coronary Artery Disease, Hx DVT, Hx Heart Attack Pulmonary Medical History: Denies: Hx Asthma, Hx Bronchitis, Hx COPD, Hx Pneumonia, Hx Tuberculosis Neurological Medical History: Denies: Hx Seizures, Hx Parkinson's Disease Endocrine Medical History: Denies: Hx Diabetes Mellitus Type 1, Hx Diabetes Mellitus Type 2, Hx Hyperthyroidism, Hx Hypothyroidism Renal/ Medical History: Denies: Hx End Stage Renal Disease, Hx Kidney Stones, Hx Peritoneal Dialysis GI Medical History: Denies: Hx Cirrhosis, Hx Crohn's Disease, Hx Gastroesophageal Reflux Disease, Hx Hepatitis, Hx Ulcer, Hx Ulcerative Colitis Musculoskeletal Medical History: Reports Hx Arthritis - 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, Denies Hx Fibromyalgia, Denies Hx Multiple Sclerosis Skin Medical History: Denies Hx Eczema, Denies Hx Psoriasis Psychiatric Medical History: Reports: Hx Anxiety, Hx Bipolar Disorder, Hx Depression, Hx Schizoaffective Disorder, Hx Schizophrenia - pt denied at this visit Infectious Medical History: Denies: Hx Hepatitis Past Surgical History: Reports: Hx Orthopedic Surgery - Left ankle open reduction and internal fixation repair March 26, 2018, Other - Ankle surgery - Immunizations Immunizations up to date: No Hx Diphtheria, Pertussis, Tetanus Vaccination: Yes - 06/24/11 Vertical Provider Document - CONSTITUTIONAL Agree With Documented VS: Yes Exam Limitations: No Limitations General Appearance: WD/WN, No Apparent Distress - INFECTION CONTROL TRAVEL OUTSIDE OF THE [place] IN LAST 30 DAYS: No - HEENT HEENT: Atraumatic, Normal ENT Exam, Normocephalic. negative: Conjuctival Injection, Pharyngeal Erythema, Tympanic Membrane Red, Tympanic Membrane Bulging - NECK Neck: Normal Inspection, Supple. negative: Lymphadenopathy-Left, Lymphadenopathy-Right - RESPIRATORY Respiratory: Breath Sounds Normal, No Respiratory Distress - CARDIOVASCULAR Cardiovascular: Regular Rate - GI/ABDOMEN Gastrointestinal: Abdomen Soft, Abdomen Non-Tender - MUSCULOSKELETAL/EXTREMETIES Musculoskeletal/Extremeties: ÁLVARO, FROM - NEURO Level of Consciousness: Awake, Alert, Appropriate Motor/Sensory: No Motor Deficit - DERM Integumentary: Warm, Dry, No Rash Course - Re-evaluation Re-evalutation: 05/06/19 16:31 Patient looks nontoxic respiratory rate even unlabored. She was instructed on good handwashing work note provided - Vital Signs Vital signs: Temp Pulse Resp BP Pulse Ox 98.7 F 65 18 138/93 H 100 05/06/19 15:21 05/06/19 15:21 05/06/19 15:21 05/06/19 15:21 05/06/19 15:21 Discharge - Discharge Clinical Impression: cold symptoms Condition: Stable Disposition: HOME, SELF-CARE Additional Instructions: *You have been evaluated for cold symptoms today *Good handwashing *Monitor your temperature, take Tylenol as indicated *Follow up with a primary care provider within 1 week for recheck *Return to ED for worsening condition, changes, needs Forms: Return to Work
== END 2019-05-06 16:30 | disposition home or self-care (01) ==
LOC: ER 15:10
DX: R50.9 Fever, unspecified (principal); R06.7 Sneezing; I10 Essential (primary) hypertension

== ENCOUNTER 2019-10-10 14:25 | Emergency (ER) | payer SELFPAY ==
--- NOTE | 2019-10-10 16:31 | ER Document Report ---
HPI - HPI Patient complains to provider of: Sore throat flank pain Time Seen by Provider: 10/10/19 15:54 Pain Level: Denies Context: This 28-year-old female presents to the emergency room today stating she had left-sided flank pain history of kidney stones and she has a sore throat. Associated Symptoms: None Exacerbated by: Denies - GASTROINTESTINAL Gastrointestinal: REPORTS: Abdominal Pain. DENIES: Black / Bloody Stools - REPRODUCTIVE Reproductive: REPORTS: : Past Medical History - Social History Smoking Status: Current Every Day Smoker Drug Abuse: Marijuana Family History: Hypertension, Other - Mental illnesses Patient has homicidal ideation: No - Past Medical History Cardiac Medical History: Reports: Hx Hypertension Denies: Hx Congestive Heart Failure, Hx Coronary Artery Disease, Hx DVT, Hx Heart Attack Pulmonary Medical History: Denies: Hx Asthma, Hx Bronchitis, Hx COPD, Hx Pneumonia, Hx Tuberculosis Neurological Medical History: Denies: Hx Seizures, Hx Parkinson's Disease Endocrine Medical History: Denies: Hx Diabetes Mellitus Type 1, Hx Diabetes Mellitus Type 2, Hx Hyperthyroidism, Hx Hypothyroidism Renal/ Medical History: Denies: Hx End Stage Renal Disease, Hx Kidney Stones, Hx Peritoneal Dialysis GI Medical History: Denies: Hx Cirrhosis, Hx Crohn's Disease, Hx Gastroesophageal Reflux Disease, Hx Hepatitis, Hx Ulcer, Hx Ulcerative Colitis Musculoskeletal Medical History: Reports Hx Arthritis - 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 IN LAST 30 DAYS: No - HEENT HEENT: Atraumatic, Normocephalic, PERRLA - NECK Neck: Normal Inspection, Supple - RESPIRATORY Respiratory: Breath Sounds Normal, No Respiratory Distress - CARDIOVASCULAR Cardiovascular: Regular Rate, Regular Rhythm - GI/ABDOMEN Gastrointestinal: Abdomen Soft, Abdomen Non-Tender - BACK Back: Normal Inspection - MUSCULOSKELETAL/EXTREMETIES Musculoskeletal/Extremeties: 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 She told the nurse that she had a sore throat. Posterior pharynx is pink no exudate no erythema. She has no tenderness on palpation to the abdominal cavity. Again she is ambulatory with a rhythmic and steady gait speaking fluidly and multiple sentence bursts between breaths 10/10/19 17:27 There is no evidence for a kidney stone as determined by laboratory and radiology studies although there is potential that she may have passed 1 in bloodless fashion. There is no strep no pharyngitis no influenza patient should be at home increase fluid intake rest self isolate follow-up PMD in 3 to 5 days. 10/10/19 17:28 - Laboratory Laboratory results interpreted by me: 10/10/19 17:27 Labs- All tests 24 hr 10/10/19 10/10/19 10/10/19 15:50 15:50 15:50 Urine Color COLORLESS Urine Appearance CLEAR Urine pH 8.0 Ur Specific [place] 1.002 Urine Protein NEGATIVE Urine Glucose (UA) NEGATIVE Urine Ketones NEGATIVE Urine Blood NEGATIVE Urine Nitrite NEGATIVE Urine Bilirubin NEGATIVE Urine Urobilinogen NEGATIVE Ur Leukocyte Esterase NEGATIVE Urine Ascorbic Acid NEGATIVE Influenza A (Rapid) NEGATIVE Influenza B (Rapid) NEGATIVE Group A Strep Rapid NEGATIVE - Diagnostic Test Radiology results interpreted by me: 10/10/19 17:27 KUB X-Ray 10/10/19 15:57 IMPRESSION: NO RADIOGRAPHIC EVIDENCE FOR ACUTE ABDOMINAL DISEASE. Discharge - Discharge Clinical Impression: Renal colic Condition: Good Disposition: HOME, SELF-CARE Additional Instructions: Patient increase fluid intake rest follow-up PMD in 3 to 5 days. Return to the ER for absolutely any change worsening condition. Prescriptions: Diclofenac Sodium [Voltaren 50 mg Tablet.] 50 mg PO BID #20 tablet. Referrals: MARYCARMEN VILLARREAL MD [ACTIVE STAFF] - Follow up as needed
[2019-10-10 16:39] LABS: APPEARANCE,URINE CLEAR; BILIRUBIN,URINE NEGATIVE (NEGATIVE); COLOR,URINE COLORLESS; GLUCOSE, URINE NEGATIVE (NEGATIVE); KETONES,URINE NEGATIVE (NEGATIVE); LEUKOCYTE ESTERASE,URINE NEGATIVE (NEGATIVE); NITRITE,URINE NEGATIVE (NEGATIVE); PROTEIN,URINE NEGATIVE (NEGATIVE); URINE SPECIFIC GRAVITY 1.002; UROBILINOGEN,URINE NEGATIVE mg/dL (<2.0)
--- NOTE | 2019-10-10 16:40 | RADIOLOGY REPORT (SQ) ---
EXAM DESCRIPTION: KUB/ABDOMEN (SINGLE VIEW) IMAGES COMPLETED DATE/TIME: 10/10/2019 4:23 pm REASON FOR STUDY: pain COMPARISON: None. NUMBER OF VIEWS: One view. TECHNIQUE: Supine radiographic image of the abdomen acquired. LIMITATIONS: None. FINDINGS: BOWEL GAS PATTERN: Normal bowel gas pattern. No dilated loops. CALCIFICATIONS: No suspicious calcifications. SOFT TISSUES: No gross mass or suggestion of organomegaly. HARDWARE: None in the abdomen. BONES: No acute fracture. No worrisome bone lesions. OTHER: No other significant finding. IMPRESSION: NO RADIOGRAPHIC EVIDENCE FOR ACUTE ABDOMINAL DISEASE. TECHNICAL DOCUMENTATION: JOB ID: [id number] 2010 [employer]- All Rights Reserved Reading location - IP/workstation name: [email or web address]
[2019-10-10 17:00] LABS: A TYPE INFLUENZA AG NEGATIVE (NEGATIVE); B INFLUENZA AG NEGATIVE (NEGATIVE)
[2019-10-10] MEDS ORDERED: KETOROLAC TROMETHAMINE 60 MG/2 ML SDV IM ONE (17:30)
== END 2019-10-10 17:54 | disposition home or self-care (01) ==
LOC: ER 14:25
DX: O26.899 Other specified pregnancy related conditions, unspecified trimester (principal); N23 Unspecified renal colic; O99.519 Diseases of the respiratory system complicating pregnancy, unspecified trimester; J02.9 Acute pharyngitis, unspecified; O99.330 Smoking (tobacco) complicating pregnancy, unspecified trimester; F17.200 Nicotine dependence, unspecified, uncomplicated; O99.320 Drug use complicating pregnancy, unspecified trimester; F12.10 Cannabis abuse, uncomplicated; O16.9 Unspecified maternal hypertension, unspecified trimester; Z3A.00 Weeks of gestation of pregnancy not specified
CPT/HCPCS: 74018; 81001; 87070; 87804; 87880; 99284

== ENCOUNTER 2020-02-02 14:16 | Emergency (ER) | payer SELFPAY ==
[2020-02-02 14:25] VITALS: BP 132/94
--- NOTE | 2020-02-02 16:33 | ER Document Report ---
HPI - HPI Time Seen by Provider: 02/02/20 16:31 Notes: 29-year-old female G6, P4 presenting to the emergency department concern for vaginal bleeding in the setting of . Patient reports she believes she is about 10 weeks . She states that she has been having bleeding with intercourse and also passed a clot today. She intends to terminate this . - ROS Systems Reviewed and Negative: Yes All other systems reviewed and negative - REPRODUCTIVE Reproductive: REPORTS: :, Abnormal bleeding / discharge Past Medical History - General Information source: Patient - Social History Smoking Status: Current Every Day Smoker Family History: Hypertension, Other - Mental illnesses - Past Medical History Cardiac Medical History: Reports: Hx Hypertension Denies: Hx Congestive Heart Failure, Hx Coronary Artery Disease, Hx DVT, Hx Heart Attack Pulmonary Medical History: Denies: Hx Asthma, Hx Bronchitis, Hx COPD, Hx Pneumonia, Hx Tuberculosis Neurological Medical History: Denies: Hx Seizures, Hx Parkinson's Disease Endocrine Medical History: Denies: Hx Diabetes Mellitus Type 1, Hx Diabetes Mellitus Type 2, Hx Hyperthyroidism, Hx Hypothyroidism Renal/ Medical History: Denies: Hx End Stage Renal Disease, Hx Kidney Stones, Hx Peritoneal Dialysis GI Medical History: Denies: Hx Cirrhosis, Hx Crohn's Disease, Hx Gastroesophageal Reflux Disease, Hx Hepatitis, Hx Ulcer, Hx Ulcerative Colitis Musculoskeletal Medical History: Reports Hx Arthritis - 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, Denies Hx Fibromyalgia, Denies Hx Multiple Sclerosis Skin Medical History: Denies Hx Eczema, Denies Hx Psoriasis Psychiatric Medical History: Reports: Hx Anxiety, Hx Bipolar Disorder, Hx Depression, Hx Schizoaffective Disorder, Hx Schizophrenia Infectious Medical History: Denies: Hx Hepatitis Past Surgical History: Reports: Hx Orthopedic Surgery, Other - Ankle surgery - Immunizations Immunizations up to date: No Hx Diphtheria, Pertussis, Tetanus Vaccination: Yes - 06/24/11 Vertical Provider Document - CONSTITUTIONAL Notes: PHYSICAL EXAMINATION: GENERAL: Well-appearing, well-nourished and in no acute distress. HEAD: Atraumatic, normocephalic. EYES: Pupils equal round extraocular movements intact, conjunctiva are normal. ENT: Nares patent NECK: Normal range of motion LUNGS: No respiratory distress Musculoskeletal: Normal range of motion NEUROLOGICAL: Normal speech, normal gait. PSYCH: Normal mood, normal affect. SKIN: Warm, Dry, normal turgor, no rashes or lesions noted. - INFECTION CONTROL TRAVEL OUTSIDE OF THE [place] IN LAST 30 DAYS: No Course - Re-evaluation Re-evalutation: 02/02/20 16:35 Upon review of patient's records patient is Rh+. No indication for RhoGam work- up today. Transvaginal ultrasound shows no intrauterine gestational sac, no other abnormal findings on ultrasound. hCG serum is negative. Patient declines pelvic exam. - Vital Signs Vital signs: Temp Pulse Resp BP Pulse Ox 98.8 F 100 18 132/94 H 99 02/02/20 14:24 02/02/20 14:24 02/02/20 14:24 02/02/20 14:24 02/02/20 14:24 - Laboratory Result Diagrams: 02/02/20 17:05 02/02/20 17:05 Discharge - Discharge Clinical Impression: Vaginal bleeding Condition: Stable Disposition: HOME, SELF-CARE Additional Instructions: Your test was negative today. There was no noted on the ultrasound. Please follow-up with your marketing admin as needed. Return with any worsening or life-threatening symptoms. Referrals: INA NATH MD [Primary Care Provider] - Follow up as needed
[2020-02-02 17:46] LABS: ABSOLUTE LYMPHOCYTES (AUTO) 1.9 10^3/uL (0.5-4.7); ABSOLUTE MONOCYTES (AUTO) 0.3 10^3/uL (0.1-1.4); ABSOLUTE NEUT (AUTO) 1.5 10^3/uL (1.7-8.2); BASOPHILS % (AUTO) 0.7 % (0-2); EOSINOPHILS % (AUTO) 0.6 % (0-6); HEMATOCRIT 39.4 % (36.0-47.0); HEMOGLOBIN 12.9 g/dL (12.0-15.5); LYMPHOCYTES % (AUTO) 51.6 % (13-45); MEAN CORPUSCULAR HEMOGLOBIN 25.1 pg (27.0-33.4); MEAN CORPUSCULAR HGB CONC 32.6 g/dL (32.0-36.0); MEAN CORPUSCULAR VOLUME 77 fl (80-97); PLATELET COUNT 289 10^3/uL (150-450); RED BLOOD COUNT 5.12 10^6/uL (3.72-5.28); RED CELL DISTRIBUTION WIDTH 20.6 % (11.5-14.0); SEGMENTED NEUTROPHILS % (AUTO) 39.1 % (42-78); TOTAL CELLS COUNTED % (AUTO) 100 %; WHITE BLOOD COUNT 3.7 10^3/uL (4.0-10.5)
[2020-02-02 18:03] LABS: ALBUMIN 5.1 g/dL (3.5-5.0); ALKALINE PHOSPHATASE 78 U/L (38-126); ANION GAP 13 (5-19); ASPARTATE AMINO TRANSFERASE 66 U/L (14-36); BILIRUBIN,DIRECT 0.1 mg/dL (0.0-0.4); BILIRUBIN,TOTAL 0.7 mg/dL (0.2-1.3); BLOOD UREA NITROGEN 8 mg/dL (7-20); CALCIUM 10.2 mg/dL (8.4-10.2); CARBON DIOXIDE 27 mmol/L (22-30); CHLORIDE 100 mmol/L (98-107); GLUCOSE 76 mg/dL (75-110); POTASSIUM 4.8 mmol/L (3.6-5.0); TOTAL PROTEIN 8.5 g/dL (6.3-8.2)
--- NOTE | 2020-02-02 18:07 | RADIOLOGY REPORT (SQ) ---
EXAM DESCRIPTION: U/S OB TRANSVAGINAL W/O DOP IMAGES COMPLETED DATE/TIME: 02/02/2020 4:32 pm REASON FOR STUDY: preg, vag bleed. COMPARISON: None. TECHNIQUE: Transvaginal static and realtime grayscale images acquired of the pelvis. Additional martín cted spectral and color Doppler images recorded. All images stored on PACs. CLINICAL AGE: LMP 11/12/2019, clinical gestational age 11 weeks 5 days. BHCG: Not available LIMITATIONS: None. FINDINGS: UTERUS: No visualized intrauterine . RIGHT ADNEXA: Normal ovary with normal vascular flow. No adnexal free fluid. No adnexal masses. Measures 3.5 x 2.2 x 2.3 cm LEFT ADNEXA: Normal ovary with normal vascular flow. No adnexal free fluid. No adnexal masses. Measures 3 x 2.2 x 2.8 cm. FREE FLUID: None. OTHER: No other significant finding. IMPRESSION: NO VISUALIZED INTRA- OR EXTRAUTERINE . ECTOPIC CANNOT BE EXCLUDED. FOLLOW-UP ULTRASOUND AND SERIAL BHCG LEVELS STRONGLY RECOMMENDED TO ACCURATELY ASSESS STATU S. TECHNICAL DOCUMENTATION: JOB ID: [id number] [employer]- All Rights Reserved Reading location - IP/workstation name: [id number]
== END 2020-02-02 19:01 | disposition home or self-care (01) ==
LOC: ER 14:16
DX: N93.8 Other specified abnormal uterine and vaginal bleeding (principal); Z32.02 Encounter for pregnancy test, result negative; F17.200 Nicotine dependence, unspecified, uncomplicated; I10 Essential (primary) hypertension
CPT/HCPCS: 36415; 76817; 80053; 84702; 85025; 99284

== ENCOUNTER 2020-04-19 11:45 | Emergency (ER) | payer MEDICAID ==
[2020-04-19] MEDS ORDERED: NORMAL SALINE 1000 ML 1,000 ML IV ONE ×2 (11:53→15:29)
--- NOTE | 2020-04-19 12:02 | ER Document Report ---
ED General - General Chief Complaint: ETOH Abuse Stated Complaint: POSSIBLE ETOH ABUSE Time Seen by Provider: 04/19/20 11:50 Primary Care Provider: INA NATH MD [Primary Care Provider] - Follow up as needed TRAVEL OUTSIDE OF THE [place] IN LAST 30 DAYS: No - HPI Notes: Chief complaint: Altered mental status History of present illness: 29-year-old female with history of bipolar disorder and polysubstance abuse transported here by EMS after they received a call for extreme intoxication and unresponsiveness. EMS crew noted that patient had stron g odor of alcohol on scene and pinpoint pupils and was initially minimally responsive. They gave an initial dose of intranasal Narcan. Patient became extremely combative and fell striking her head. They subsequently decided to give her ketamine 300 mg IM. Patient is now extremely sedated and is transported in soft restraints. No other other additional history is available directly from the patient. Review of past records at this facility shows prior visit in 2019 related to psychiatric issues and abuse of heroin. - Related Data Allergies/Adverse Reactions: latex Allergy (Mild, Verified 02/02/20 18:56) tramadol Allergy (Mild, Verified 02/02/20 18:56) hydrocodone bitartrate [From Vicodin] Adverse Reaction (Intermediate, Verified 02/02/20 18:56) Hives Past Medical History - General Information source: Emergency Med Personnel, [facility] Records Cannot obtain history due to: Intoxicated, Altered mental status - Social History Smoking Status: Smoker,Current Status Unk Frequency of alcohol use: Heavy Drug Abuse: Heroin Family History: Hypertension, Other - Mental illnesses - Past Medical History Cardiac Medical History: Reports: Hx Hypertension Denies: Hx Congestive Heart Failure, Hx Coronary Artery Disease, Hx DVT, Hx Heart Attack Pulmonary Medical History: Denies: Hx Asthma, Hx Bronchitis, Hx COPD, Hx Pneumonia, Hx Tuberculosis Neurological Medical History: Denies: Hx Seizures, Hx Parkinson's Disease Endocrine Medical History: Denies: Hx Diabetes Mellitus Type 1, Hx Diabetes Mellitus Type 2, Hx Hyperthyroidism, Hx Hypothyroidism Renal/ Medical History: Denies: Hx End Stage Renal Disease, Hx Kidney Stones, Hx Peritoneal Dialysis GI Medical History: Denies: Hx Cirrhosis, Hx Crohn's Disease, Hx Gastroesophageal Reflux Disease, Hx Hepatitis, Hx Ulcer, Hx Ulcerative Colitis Musculoskeletal Medical History: Reports Hx Arthritis - 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, Denies Hx Fibromyalgia, Denies Hx Multiple Sclerosis Skin Medical History: Denies Hx Eczema, Denies Hx Psoriasis Psychiatric Medical History: Reports: Hx Anxiety, Hx Bipolar Disorder, Hx Depression, Hx Schizoaffective Disorder, Hx Schizophrenia Infectious Medical History: Denies: Hx Hepatitis Past Surgical History: Reports: Hx Orthopedic Surgery, Other - Ankle surgery - Immunizations Immunizations up to date: No Hx Diphtheria, Pertussis, Tetanus Vaccination: Yes - 06/24/11 Review of Systems - Review of Systems -: Yes ROS unobtainable due to patient's medical condition Physical Exam - Vital signs Vitals: Resp Pulse Ox 18 98 04/19/20 11:54 04/19/20 11:54 - Notes Notes: GENERAL: Slender female approximately stated age with somewhat disheveled appearance extremely sedated and on stretcher with soft restraints. SKIN: Warm and dry. Good turgor no rashes. HEAD: Normocephalic atraumatic. EYES: Gaze is mildly disconjugate with nystagmus present. Pupils are small and sluggishly reactive. EARS: CANALS AND TMS CLEAR. NOSE: CLEAR. MOUTH: Moist mucosa. Good dentition. No stridor or edema. No drooling. NECK: Supple. No masses or thyromegaly. No adenopathy. Carotids 2+ without b ruits. No JVD. BACK: Symmetrical without tenderness. CHEST: Respirations unlabored. Breath sounds clear and symmetrical. HEART: Regular rhythm. No murmur gallop or rub. ABDOMEN: Soft nontender without masses, organomegaly or rebound. Bowel sounds normally active. No bruits. GENITALIA: Deferred. EXTREMITIES: No edema. No calf tenderness. Cap refill less than 1.5 seconds. Dorsalis pedis and posterior tibial pulses 3+ and symmetrical. NEUROLOGICAL: GCS 9. Moves all 4 extremities symmetrically and localizes pain. Moaning sounds. Eyes open to painful stimuli. Course - Vital Signs Vital signs: Temp Pulse Resp BP Pulse Ox 97.5 F 31 H 135/98 H 99 04/19/20 12:20 04/19/20 14:01 04/19/20 14:00 04/19/20 14:01 - Laboratory Results Result Diagrams: 04/19/20 12:06 04/19/20 12:06 Laboratory Results Interpreted: 04/19/20 04/19/20 04/19/20 12:06 12:06 12:06 Hgb 11.5 L MCV 77 L MCH 24.2 L MCHC 31.4 L RDW 22.6 H VBG pH 7.29 L Sodium 147.7 H Potassium 3.2 L BUN 3 L Creatine Kinase 218 H Urine Protein Urine Blood Salicylates < 1.0 L Acetaminophen < 10 L Serum Alcohol 440 H* 04/19/20 12:06 Hgb MCV MCH MCHC RDW VBG pH Sodium Potassium BUN Creatine Kinase Urine Protein 100 H Urine Blood SMALL H Salicylates Acetaminophen Serum Alcohol Critical Laboratory Results Reviewed: Yes Attending or Supervising Physician who Reviewed Labs: ELEANOR BENZ - Radiology Results Radiology Results Interpreted: 04/19/20 16:12 Chest X-Ray 04/19/20 11:52 IMPRESSION: NO ACUTE RADIOGRAPHIC FINDING IN THE CHEST. Head CT 04/19/20 11:52 IMPRESSION: NORMAL BRAIN CT WITHOUT CONTRAST. EVIDENCE OF ACUTE STROKE: NO. Critical Radiology Results Reviewed: No Critical Results - EKG Interpretation by Me Additional EKG results interpreted by me: 04/19/20 12:18 Twelve-lead EKG reviewed by me contemporaneously: 1158 hrs. Indication for study: Altered mental status Rhythm: Normal sinus Rate: 95 Intervals: Normal QRS axis: +[address]/T wave changes: Nonspecific inferior T wave wave changes Comparison with prior tracing: Minimal change compared to prior study 05/18/2018 Interpretation: Nonspecific inferior T wave changes minimal change from baseline tracing Discharge - Discharge Clinical Impression: Polysubstance abuse Disposition: PSYCH HOSP/UNIT Referrals: INA NATH MD [Primary Care Provider] - Follow up as needed
[2020-04-19 12:35] LABS: ABSOLUTE LYMPHOCYTES (AUTO) 1.3 10^3/uL (0.5-4.7); ABSOLUTE MONOCYTES (AUTO) 0.5 10^3/uL (0.1-1.4); ABSOLUTE NEUT (AUTO) 4.4 10^3/uL (1.7-8.2); BASOPHILS % (AUTO) 0.6 % (0-2); EOSINOPHILS % (AUTO) 0.4 % (0-6); HEMATOCRIT 36.5 % (36.0-47.0); HEMOGLOBIN 11.5 g/dL (12.0-15.5); LYMPHOCYTES % (AUTO) 21.1 % (13-45); MEAN CORPUSCULAR HEMOGLOBIN 24.2 pg (27.0-33.4); MEAN CORPUSCULAR HGB CONC 31.4 g/dL (32.0-36.0); MEAN CORPUSCULAR VOLUME 77 fl (80-97); MONOCYTES % (AUTO) 8.5 % (3-13); PLATELET COUNT 254 10^3/uL (150-450); RED BLOOD COUNT 4.74 10^6/uL (3.72-5.28); RED CELL DISTRIBUTION WIDTH 22.6 % (11.5-14.0); SEGMENTED NEUTROPHILS % (AUTO) 69.4 % (42-78); TOTAL CELLS COUNTED % (AUTO) 100 %; WHITE BLOOD COUNT 6.4 10^3/uL (4.0-10.5)
[2020-04-19 12:43] LABS: APPEARANCE,URINE CLEAR; BILIRUBIN,URINE NEGATIVE (NEGATIVE); COLOR,URINE YELLOW; GLUCOSE, URINE NEGATIVE (NEGATIVE); KETONES,URINE NEGATIVE (NEGATIVE); PROTEIN,URINE 100 mg/dL (NEGATIVE); UROBILINOGEN,URINE NEGATIVE mg/dL (<2.0)
[2020-04-19 12:44] LABS: VENOUS BLOOD BASE EXCESS -2.8 mmol/L; VENOUS BLOOD HCO3 24.4 mmol/L (20-32); VENOUS BLOOD PCO2 52.3 mmHg (35-63); VENOUS BLOOD PH 7.29 (7.30-7.42)
[2020-04-19 12:53] LABS: ALBUMIN 4.3 g/dL (3.5-5.0); ALKALINE PHOSPHATASE 63 U/L (38-126); ANION GAP 14 (5-19); ASPARTATE AMINO TRANSFERASE 25 U/L (14-36); BLOOD UREA NITROGEN 3 mg/dL (7-20); CALCIUM 8.8 mg/dL (8.4-10.2); CARBON DIOXIDE 27 mmol/L (22-30); CHLORIDE 107 mmol/L (98-107); GLUCOSE 104 mg/dL (75-110); POTASSIUM 3.2 mmol/L (3.6-5.0)
[2020-04-19 12:54] LABS: BILIRUBIN,DIRECT 0.2 mg/dL (0.0-0.4); BILIRUBIN,TOTAL 0.3 mg/dL (0.2-1.3); CREATINE KINASE 218 U/L (30-135); TOTAL PROTEIN 7.3 g/dL (6.3-8.2)
[2020-04-19 12:56] LABS: ACETAMINOPHEN < 10 ug/mL (10-30); SALICYLATE < 1.0 mg/dL (2.0-20.0)
[2020-04-19 13:03] LABS: URINE AMPHETAMINES SCREEN NEGATIVE; URINE BARBITURATES SCREEN NEGATIVE; URINE METHADONE SCREEN NEGATIVE; URINE PHENCYCLIDINE SCREEN NEGATIVE
--- NOTE | 2020-04-19 13:03 | RADIOLOGY REPORT (SQ) ---
EXAM DESCRIPTION: CT HEAD WITHOUT IMAGES COMPLETED DATE/TIME: 04/19/2020 12:33 pm REASON FOR STUDY: ams COMPARISON: 11/08/2018. TECHNIQUE: Axial images acquired through the brain without intravenous contrast. Images reviewed wi th bone, brain and subdural windows. Additional sagittal and coronal reconstructions were generated. Images stored on PACS. All CT scanners at this facility use dose modulation, iterative reconstruction, and/or weight based d osing when appropriate to reduce radiation dose to as low as reasonably achievable (ALARA). [facility]: Dose Right [facility]: CareDose [facility]: Dose Right [facility]: Teradose 4D [facility]: Smart [employer] Software RADIATION DOSE: CT Rad equipment meets quality standard of care and radiation dose reduction techniq ues were employed. CTDIvol: 53.2 mGy. DLP: 1124 mGy-cm. mGy. LIMITATIONS: None. FINDINGS: VENTRICLES: Normal size and contour. CEREBRUM: No masses. No hemorrhage. No midline shift. No evidence for acute infarction. Normal gra y/white matter differentiation. No areas of low density in the white matter. CEREBELLUM: No masses. No hemorrhage. No alteration of density. No evidence for acute infarction. EXTRAAXIAL SPACES: No fluid collections. No masses. ORBITS AND GLOBE: No intra- or extraconal masses. Normal contour of globe without masses. CALVARIUM: No fracture. PARANASAL SINUSES: No fluid or mucosal thickening. SOFT TISSUES: No mass or hematoma. OTHER: No other significant finding. IMPRESSION: NORMAL BRAIN CT WITHOUT CONTRAST. EVIDENCE OF ACUTE STROKE: NO. COMMENT: Quality ID # [id number]: Final reports with documentation of one or more dose reduction techniques (e.g., Automated exposure control, adjustment of the mA and/or kV according to patient size, use of iterative reconstruction technique) TECHNICAL DOCUMENTATION: JOB ID: [id number] 2010 [employer]- All Rights Reserved Reading location - IP/workstation name: [email or web address]
[2020-04-19 13:07] LABS: URINE BENZODIAZEPINES SCREEN UNCONFIRMED POSITIVE; URINE COCAINE SCREEN UNCONFIRMED POSITIVE; URINE MARIJUANA (THC) SCREEN UNCONFIRMED POSITIVE
--- NOTE | 2020-04-19 13:08 | RADIOLOGY REPORT (SQ) ---
EXAM DESCRIPTION: CHEST SINGLE VIEW IMAGES COMPLETED DATE/TIME: 04/19/2020 12:20 pm REASON FOR STUDY: ams COMPARISON: 04/24/2018 EXAM PARAMETERS: NUMBER OF VIEWS: One view. TECHNIQUE: Single frontal radiographic view of the chest acquired. RADIATION DOSE: NA LIMITATIONS: None. FINDINGS: LUNGS AND PLEURA: No opacities, masses or pneumothorax. No pleural effusion. MEDIASTINUM AND HILAR STRUCTURES: No masses. Contour normal. HEART AND VASCULAR STRUCTURES: Heart normal in size. Normal vasculature. BONES: No acute findings. HARDWARE: None in the chest. OTHER: No other significant finding. IMPRESSION: NO ACUTE RADIOGRAPHIC FINDING IN THE CHEST. TECHNICAL DOCUMENTATION: JOB ID: [id number] 2010 [employer]- All Rights Reserved Reading location - IP/workstation name: [email or web address]
[2020-04-19 13:15] LABS: ALCOHOL 440 mg/dL (NONE DETECTED)
[2020-04-19] MEDS ORDERED: POTASSI CL 20 MEQ/50 ML RIDER 20 MEQ/50 ML RTUPB IV ONE (15:31)
[2020-04-19] MEDS ORDERED: ZIPRASIDONE MESYLATE INJ/PF 20 MG SDV IM ONE (17:47)
--- NOTE | 2020-04-19 18:33 | EKG REPORT ---
SEVERITY:- ABNORMAL ECG - SINUS RHYTHM ABENA, CONSIDER BIATRIAL ABNORMALITIES LEFT VENTRICULAR HYPERTROPHY NONSPECIFIC T ABNORMALITIES, INFERIOR LEADS : Confirmed by: Malcolm Recinos MD 19-Apr-2020 18:32:45
--- NOTE | 2020-04-19 18:56 | PSYCHOLOGICAL NOTE ---
Psych Note - Psych Note Date seen by psych provider: 04/19/20 Time seen by psych provider: 15:13 Psych Note: Reason for Consult: unknown reason [id number] Consent Permissions: cannot obtain at this time Patient is a 29 year old who female presented to the [facility] ED today via EMS. Patient came into the ED with EMS after getting narcan and then ketamine in the field. Patient was sleeping and would not wake up when clinician attempted to meet and assess her. Patients toxicology was positive for benzodiazepines, cocaine, THC, and her alcohol level was 440. Collateral: 1516 Attempted to call Patel Gonzalez (other relationship), from patients chart, to obtain collateral. No answer at this time. ([phone]) 1628 Attempted to call Patel Gonzalez (other relationship), from patients chart, to obtain collateral. No answer at this time. Patient not alert or oriented. Unable to assess at this time. Clinical Presentation: alcohol use and substance use Impression\plan: Patient is recommended for continued overnight mental health observation. At time of consult and due to patients level of intoxication, she is not able to wake up to participate in evaluation. Patient will be evaluated later today, if able to, and if not tomorrow, 04.20.2020. Dr. Bush was consulted to care management of this patient; attending physicians in agreement with recommendations and disposition. Case management: Tara, from [facility], came into the office. She reported patient came via EMS and has dependency issues. She reports she would like to be called to assess patient prior to discharge. [phone].
[2020-04-19] MEDS ORDERED: CHLORPROMAZINE HCL INJ 25 MG/1 ML AMPULE IM PRN (20:40)
[2020-04-20] MEDS ORDERED: ONDANSETRON 4 MG TAB.RAPDIS PO ONE (01:18)
[2020-04-20] MEDS ORDERED: BENZTROPINE MESYLATE INJ 2 MG/2 ML AMPULE IM SCH (10:00)
--- NOTE | 2020-04-20 12:45 | ER Document Report ---
Doctor's Note Notes: 04/20/20 12:42 Patient evaluated and she is doing well with no complaints. She denies chest pain, shortness of breath and abdominal pain. PHYSICAL EXAMINATION: VITALS: Vitals reviewed and within normal limits. GENERAL: Well-appearing, well-nourished and in no acute distress. HEAD: Atraumatic, normocephalic. LUNGS: Breath sounds clear to auscultation bilaterally and equal. No wheezes rales or rhonchi. HEART: Regular rate and rhythm without murmurs. ABDOMEN: Soft, nontender, normoactive bowel sounds. No guarding, no rebound. No masses appreciated. PSYCH: Normal mood, normal affect. SKIN: Warm, Dry, normal turgor, no rashes or lesions noted. I spoke with Darrell from psych and she plans to discharge the patient with resources as she does not meet IVC criteria as she is not actively suicidal. [facility] has been made aware. Patient offered placement at [facility] but she is requesting resources with outpatient follow up. 04/20/20 13:38 Patient has been cleared by psychiatric services at this time. Patient is also medically cleared and safe for discharge. [facility] provided the patient with the appropriate resources. Return precautions follow-up instructions given. Patient understands and is in agreement with the plan. Patient will be discharged at this time.
[2020-04-20 13:56] VITALS: BP 141/94
--- NOTE | 2020-04-21 18:47 | PSYCHOLOGICAL NOTE ---
Psych Note - Psych Note Date seen by psych provider: 04/20/20 Time seen by psych provider: 11:00 Psych Note: Reason for Consult:AMS (intoxication) Consent Permissions: none provided Patient arrived to [facility] ED via EMS after being found unresponsive. Patient reports she needs help with her polysubstance abuse. She reports she use to go to [facility] and had weekly therapy but in January they stopped calling her and she denies knowing why. She declines assistance with detox inpatient but would like resources for outpatient substance abuse treatment. She disclosed she "might of" made suicidal comments while under the influence but denies remembering saying anything and denied wanting to . Patient denies history of engaging in self-harm behaviors. Patient is alert and orientated to person, place, time and circumstance. Mood is slightly irritable with congruent affect however appropriately engages. Patient denies suicidal and homicidal ideation. Delusions are absent behaviors congruent with an intact reality based presentation i.e. organized linear thought process. Eye contact is fair. Conversational speech is within normal rate, tone and prosody. Intellectual abilities appear to be within the average range. Attention and concentration are fair. Insight, judgment, impulse control are poor due to polysubstance abuse. Clinical Presentation: polysubstance abuse IVC Criteria per [place] GS 122C Dangerous to others Within the relevant past the individual No has inflicted or attempted to inflict or threatened to inflict serious bodily harm on another AND No that there is a reasonable probability that this conduct will be repeated as there is an absence of supervision or structure to prevent. OR No has acted in such a way as to create a substantial risk of serious bodily harm to another AND No that there is a reasonable probability that this conduct will be repeated as there is an absence of supervision or structure to prevent. OR No has engaged in extreme destruction of property AND NO that there is a reasonable probability that this conduct will be repeated as there is an absence of supervision or structure to prevent. Previous episodes of dangerousness to others, when applicable, may be considered when determining reasonable probability of future dangerous conduct. Clear, c ogent, and convincing evidence that an individual has committed a homicide in the relevant past is prima facie evidence of dangerousness to others. Dangerous to self Within the relevant past the individual has done any of the following: acted in such a way as to show ALL of the following: yes The individual would be unable without care, supervision, and the continued assistance of others not otherwise available, to exercise self- control, judgment, and discretion in the conduct of the individual's daily responsibilities and social relations or to satisfy the individual's need for nourishment, personal or medical care, fci, or self-protection and safety. AND No There is a reasonable probability of the individual suffering serious p hysical debilitation within the near future unless adequate treatment is given. A showing of behavior that is grossly irrational, of actions that the individual is unable to control, of behavior that is grossly inappropriate to the situation, or of other evidence of severely impaired insight and judgment shall create a prima facie inference that the individual is unable to care for himself or herself. Patient originally arrived intoxicated and unable to engage. Patient is no longer under the influence. OR No has attempted suicide or threatened suicide AND No that there is a reasonable probability of suicide unless adequate treatment is given as there is an absence of supervision or structure to prevent suicide of patient who has made an attempt, serious gesture or threat. OR No has mutilated himself or herself or attempted to mutilate himself or herself AND No that there is a reasonable probability of serious self-mutilation unless adequate treatment is given as there is an absence of supervision or structure to prevent. NOTE: Previous episodes of dangerousness to self, when applicable, may be considered when determining reasonable probability of physical debilitation, suicide, or self-mutilation. Impression\\plan: Patient is recommended for rescind of 24 petition and is cleared from acute psychiatric services; paperwork is signed and placed in patient's chart. Patient denies assistance with detox inpatient treatment. She does request resources for outpatient substance use treatment. She identifies previous provider of [facility] however lost services back in January. Patient was provided resources in addition to a referral for [facility] has been submitted. Patient is highly encouraged to follow through with substance abuse treatment. Patient identifies her brother as her support and will be transporting her home. Dr. Bush was consulted to care management of this patient; attending physicians in agreement with recommendations and disposition.
== END 2020-04-20 13:55 | disposition home or self-care (01) ==
LOC: ER 11:45
DX: F11.10 Opioid abuse, uncomplicated (principal); F10.129 Alcohol abuse with intoxication, unspecified; R40.4 Transient alteration of awareness; I10 Essential (primary) hypertension; Z78.1 Physical restraint status; Z91.041 Radiographic dye allergy status; Z88.6 Allergy status to analgesic agent
CPT/HCPCS: 93005; 99285; 96372 ×2; 96360; 96361 ×2; 51701; 36415; 80307 ×4; 82550; 83735; 85025; 81025; 80053; 81001; 82803; 71045; 70450; 93010; J0515; S0119; J3486; J3480; J7030